=== PATIENT | male | born 1985 | race Caucasian/White ===

== ENCOUNTER 2021-07-12 07:26 | Outpatient (CLI) | payer BC, SELFPAY ==
--- NOTE | ~2021-07-12 | XR_ITS ---
EXAMINATION: XR barium swallow DATE: 07/12/2021 08:05 INDICATION: Globus sensation with feeling of lump in the throat. TECHNIQUE: The patient drank thick barium, gas-producing crystals, and thin barium. Fluoroscopic spot radiographs of the hypopharynx and esophagus were obtained. Fluoroscopy exposure time was 1.8 minut es. Total DAP was 5.375 mGycm^2 COMPARISON: None. FINDINGS: The pharynx is symmetric and without evidence of mass lesion or mucosal irregularity. The e sophagus is normal without mass or stricture. Esophageal motility is normal. There is no hiatal herni a. A single episode of gastroesophageal reflux of a moderate amount of contrast extending to the uppe r thoracic esophagus was observed with Valsalva. IMPRESSION: 1. Gastroesophageal reflux. Otherwise normal esophagram. Reviewed, dictated and finalized at location A. LE MACHINE OPERATOR
== END 2021-07-12 07:27 | disposition home or self-care (01) ==
LOC: ANHIMG 07:28
PROVIDERS: PCP Physician Assistant; Visit Provider Physician Assistant
DX: F45.8 Other somatoform disorders (principal); K21.9 Gastro-esophageal reflux disease without esophagitis
CPT/HCPCS: 74220

== ENCOUNTER 2021-07-27 09:24 | Outpatient (CLI) | payer BC, SELFPAY ==
--- NOTE | ~2021-07-27 | XR_ITS ---
EXAMINATION: XR shoulder RT min 2V DATE: 07/27/2021 09:40 INDICATION: Right shoulder joint pain TECHNIQUE: AP internally and externally rotated, AP oblique externally rotated, axillary and transsca pular Y views of the right shoulder were obtained. COMPARISON: None FINDINGS: Normal alignment. No fracture. Glenohumeral joint is normal. Mild acromioclavicular osteoarthritis w ith mild subarticular cystic change at the lateral head of the clavicle. Soft tissues are unremarkabl e. The right lung is clear with no airspace opacities, pulmonary edema, pleural effusion or pneumotho rax. IMPRESSION: Mild right acromioclavicular osteoarthritis. Reviewed, dictated and finalized at location A. F COMMAND AND CONTROL OFFICER
== END 2021-07-27 09:25 | disposition home or self-care (01) ==
LOC: ANHIMG 09:28
PROVIDERS: PCP Physician Assistant; Visit Provider Physician Assistant
DX: M19.011 Primary osteoarthritis, right shoulder (principal)
CPT/HCPCS: 73030

== ENCOUNTER 2022-01-20 15:02 | Emergency (ER) | payer BC, SELFPAY ==
[2022-01-20 15:05] VITALS: BP 165/99; PULSE 97; RESP 16; TEMP 36.6; O2SAT 97
[2022-01-20] MEDS: TETANUS,DIPHTHERIA,AC PERTUSSIS ADULT (0.5 ML) BOOSTRIX IM (16:28)
[2022-01-20] MEDS: LIDOCAINE HCL 1% PF 30 ML VIAL (16:30)
--- NOTE | 2022-01-20 16:31 | ED.WOUNDLAC ---
HPI - Wound/Laceration General Chief Complaint: Wound/Laceration Stated Complaint: scalp lac Time Seen by Provider: 01/20/22 16:02 Source: patient Mode of arrival: ambulatory Limitations: no limitations History of Present Illness HPI narrative: 36-year-old with a history of anxiety disorder here with complaints of laceration to scalp sustained last evening at 7 PM at his home. Patient states that he was working in his basement and accidentally hit himself against a metal object. He denies loss of consciousness. Patient states that he had to go to work early this morning finished his job this morning and he is here for evaluation. He denies any headache. No history of nausea or vomiting. Onset (ago): hour(s) (16) Location: scalp Place: home Context: accidental Associated symptoms: none Related Data Allergies Allergy/AdvReac Type Severity Reaction Status Date / Time Penicillins AdvReac Unknown vomiting Verified 02/16/20 16:04 Review of Systems Review of Systems: All systems reviewed & are unremarkable except as noted in HPI and below Constitutional: Constitutional: Reports no additional constitutional complaints Eyes: Eyes: Reports no additional eye complaints ENT: Reports system reviewed and no additional complaints, except as documented Cardiovascular: Cardiovascular: Reports no additional cardiovascular complaints Respiratory: Respiratory: Reports no additional respiratory complaints Gastrointestinal: Gastrointestinal: Reports no additional gastrointestinal complaints Musculoskeletal: Musculoskeletal: Reports no additional musculoskeletal complaints Integumentary/Breasts: Skin/Breast: Reports system reviewed and no additional complaints, except as docu Neurologic: Reports system reviewed and no additional complaints, except as documented Endocrine: Endocrine: Reports no additional endocrine complaints [facility] Past Medical History Medical History (Updated 01/20/22 @ 16:34 by Isael Guido MD) Anxiety Tobacco abuse Social History Social History Smoking packs per day: 2 Smoking cigarettes per day: 40.0 Smoking status: Heavy tobacco smoker Tobacco type: cigarettes Second hand tobacco smoke exposure: Yes Alcohol intake: current Substance use: never Substance use type: does not use Additional living arrangements comments: has two dogs Gender identity (if verbalized by the patient): Male Spiritual care concerns: No Agree to blood products: No Exam Narrative: GENERAL: Well-appearing, well-nourished, and in no acute distress. HEAD: Normocephalic, atraumatic.4 cms lac on the scalp with no active bleeding EYES: PERRLA and EOMI. ENT: Nares clear, no rhinorrhea or epistaxis. Mucous membranes moist. NECK: Supple. CHEST: Clear to auscultation. No respiratory distress. HEART: Regular rate and rhythm. No murmur heard. Normal peripheral pulses. EXTREMITIES: Normal range of motion. No edema. SKIN: Warm, dry, no rash. NEURO: No focal deficits. Alert and oriented x3. PSYCH: Normal mood and affect. Course Vital Signs Vital signs: Vital Signs Temperature 36.6 C 01/20/22 15:05 Pulse Rate 97 01/20/22 15:05 Respiratory Rate 16 01/20/22 15:05 Blood Pressure 165/99 H 01/20/22 15:05 Pulse Oximetry 97 01/20/22 15:05 Oxygen Delivery Room Air 01/20/22 15:05 Temperature 36.6 C 01/20/22 15:05 Pulse Rate 97 01/20/22 15:05 Respiratory Rate 16 01/20/22 15:05 Blood Pressure 165/99 H 01/20/22 15:05 Pulse Oximetry 97 01/20/22 15:05 Oxygen Delivery Room Air 01/20/22 15:05 Procedures Laceration Laceration 1: Date: 01/20/22 Site: scalp Size (cm): 4 Description: linear Depth: simple, single layer Local Anesthetic: lidocaine 1% Pre-repair: irrigated extensively ====== Skin Level ====== Skin layer closed with: harjit (9) ====== Subcut
== END 2022-01-20 16:48 | disposition home or self-care (01) ==
LOC: ANHED 16:37
PROVIDERS: Emergency Provider Family Medicine; PCP Physician Assistant
DX: S01.01XA Laceration without foreign body of scalp, initial encounter (principal); Z23 Encounter for immunization; F41.9 Anxiety disorder, unspecified; F17.210 Nicotine dependence, cigarettes, uncomplicated; W26.8XXA Contact with other sharp object(s), not elsewhere classified, initial encounter
CPT/HCPCS: 12002; 90471; 90715; 99283

== ENCOUNTER 2022-01-25 20:54 | Emergency (ER) | payer BC, SELFPAY ==
--- NOTE | ~2022-01-25 | XR_ITS ---
EXAM: XR tibia fibula LT 2V DATE: 01/25/2022 21:41 HISTORY: deep laceration . COMPARISON: None available. FINDINGS: Normal mineralization. Anterior cortical disruption of the left tibia at the junction of t he proximal middle thirds. No other fracture. No dislocation. No lytic or blastic lesion. Joint space s are maintained. No erosion or periosteal change. Anterolateral soft tissue laceration. IMPRESSION: Anterior tibial cortical disruption deep to the soft tissue laceration. No complete fract ure. No other acute osseous finding. Reviewed, dictated and finalized at location K. IMPRESSION: Anterior tibial cortical disruption deep to the soft tissue lacerat ion. No complete fracture. No other acute osseous finding.
[2022-01-25 21:23] VITALS: BP 152/107; PULSE 86; RESP 18; TEMP 36.4; O2SAT 97
[2022-01-26] MEDS: ceFAZolin SODIUM 1 GM VIAL IM (01:28)
[2022-01-26] MEDS: LIDO 1%/EPINEPHRINE 1:100,000 20 ML VIAL INFILTRATE (01:29)
--- NOTE | 2022-01-26 02:12 | ED.LOWEXIN ---
HPI - Extremity Injury (Lower) General Chief Complaint: Extremity Injury, Lower <Beatriz Mcnela PA-C - Last Filed: 01/26/22 02:50> Stated Complaint: laceration to leg <Beatriz Mcneal PA-C - Last Filed: 01/26/22 02:50> Time Seen by Provider: 01/25/22 23:17 <Beatriz Mcneal PA-C - Last Filed: 01/26/22 02:50> Source: patient <Beatriz Mcneal PA-C - Last Filed: 01/26/22 02:50> Mode of arrival: ambulatory <Beatriz Mcneal PA-C - Last Filed: 01/26/22 02:50> Limitations: no limitations <Beatriz Mcneal PA-C - Last Filed: 01/26/22 02:50> History of Present Illness HPI Narrative: This is a 36-year-old male that presents to the emergency department for a laceration to the left schmitz sustained just prior to arrival. Reports he was using a chainsaw and it kicked back and he stained a laceration to the left leg. He is up-to-date on tetanus. Reports bleeding and pain to the area. Denies decreased range of motion or numbness. <Beatriz Mcneal PA-C - Last Filed: 01/26/22 02:50> Related Data Allergies/Adverse Reactions: Allergies Allergy/AdvReac Type Severity Reaction Status Date / Time Penicillins AdvReac Unknown vomiting Verified 02/16/20 16:04 <Beatriz Mcneal PA-C - Last Filed: 01/26/22 02:50> Review of Systems Review of Systems: CONSTITUTIONAL: Denies fever SKIN: Reports laceration NEUROLOGIC: Denies numbness <Beatriz Mcneal PA-C - Last Filed: 01/26/22 02:50> All systems reviewed & are unremarkable except as noted in HPI and below <Beatriz Mcneal PA-C - Last Filed: 01/26/22 02:50> [facility] Past Medical History Medical History: Medical History (Updated 01/26/22 @ 02:14 by Beatriz Mcneal PA-C) Anxiety Tobacco abuse <Beatriz Mcneal PA-C - Last Filed: 01/26/22 02:50> Social History Social History: Social History Smoking packs per day: 2 Smoking cigarettes per day: 40.0 Smoking status: Heavy tobacco smoker Tobacco type: cigarettes Second hand tobacco smoke exposure: Yes Alcohol intake: current Substance use: never Substance use type: does not use Additional living arrangements comments: has two dogs Gender identity (if verbalized by the patient): Male Spiritual care concerns: No Agree to blood products: No <Beatriz Mcnela PA-C - Last Filed: 01/26/22 02:50> Exam Narrative: GENERAL: Well-appearing, well-nourished, and in no acute distress. HEAD: Normocephalic, atraumatic. EYES: EOMI. EXTREMITIES: Normal range of motion. No edema. Normal DP pulse. Normal sensation. 6 cm irregular laceration into subcutaneous tissue over left schmitz. Disruption of the fascia with some injury to the tibialis anterior muscle. No tendinous damage is noted SKIN: Warm, dry, no rash. NEURO: No focal deficits. Alert and oriented x3. PSYCH: Normal mood and affect <Beatriz Mnceal PA-C - Last Filed: 01/26/22 02:50> Course RAW CHEESE WORKER/PA Physician Supervision For this patient encounter, I reviewed the RAW CHEESE WORKER or PA documentation, treatment plan, and medical decision making; and I had [id number] time with this patient. <Scott Leo MD - Last Filed: 01/26/22 03:15> Consultations Consultation #1: Spoke with Dr. Cat about patient and work-up who will follow-up in clinic. <Beatriz Mcneal PA-C - Last Filed: 01/26/22 02:50> Date: 01/26/22 <Beatriz Mcneal PA-C - Last Filed: 01/26/22 02:50> Vital Signs Vital signs: Vital Signs Temperature 97.6 F 01/25/22 21:23 Pulse Rate 86 01/25/22 21:23 Respiratory Rate 18 01/25/22 21:23 Blood Pressure 152/107 H 01/25/22 21:23 Pulse Oximetry 97 01/25/22 21:23 Oxygen Delivery Room Air 01/25/22 21:23 Temperature 97.6 F 01/25/22 21:23 Pulse Rate 72 01/26/22 02:53 Respiratory Rate 18 01/26/22 02:53 Blood Pressure 139/103 H 01/26/22 02:53 Pulse Oximetry 99 01/26/22 02:53 Oxygen Delivery Room A
--- NOTE | 2022-01-26 02:39 | PC.NURSE ---
crutches were ordered for Pt Pt refused.
[2022-01-26 02:53] VITALS: BP 139/103; PULSE 72; RESP 18; O2SAT 99
--- NOTE | 2022-02-15 11:19 | PC.NURSE ---
LATE ENTRY This note is being entered to document information to the patient's record. The following information was omitted on [01/26/2022], by [Jason Wisdom RN]. Site of wound verified to be left lower leg.
== END 2022-01-26 02:56 | disposition home or self-care (01) ==
PROVIDERS: Emergency Provider Emergency Medicine; PCP Physician Assistant
DX: S82.202B Unspecified fracture of shaft of left tibia, initial encounter for open fracture type I or II (principal); F17.210 Nicotine dependence, cigarettes, uncomplicated; W29.3XXA Contact with powered garden and outdoor hand tools and machinery, initial encounter
CPT/HCPCS: 12002; 73590; 96372; 99283; J0690

== ENCOUNTER 2022-02-23 14:28 | Outpatient (CLI) | payer BC, SELFPAY ==
--- NOTE | ~2022-02-23 | XR_ITS ---
XR tibia fibula LT 2V 02/23/2022 14:44 Indication: Left leg injury Procedure: 2 views left tibia/fibula Comparison: 01/25/2022 Findings: there is a soft tissue laceration anterior to the tibia. There is an associated avulsion fr acture of the cortex at this level. No other fracture is identified. The left knee is unremarkable. L eft ankle is intact. Impression: 1: Avulsion fracture anterior aspect of the proximal tibial diaphysis with overlying laceration of th e soft tissues. Reviewed, dictated and finalized at location A. Impression: 1: Avulsion fracture anterior aspect of the proximal tibial diaphysis with over lying laceration of the soft tissues.
== END 2022-02-23 14:29 | disposition home or self-care (01) ==
LOC: ANHIMG 14:32
PROVIDERS: PCP Physician Assistant; Visit Provider Physician Assistant
DX: S82.292D Other fracture of shaft of left tibia, subsequent encounter for closed fracture with routine healing (principal); X58.XXXD Exposure to other specified factors, subsequent encounter
CPT/HCPCS: 73590

== ENCOUNTER 2022-05-31 02:29 | Day surgery (SDC) | payer BC, SELFPAY ==
[2022-05-23 13:48] VITALS: BMI 21.4
[2022-05-31 07:50] VITALS: BP 124/74; PULSE 83; RESP 18; TEMP 36.3; O2SAT 98; BMI 21.8
[2022-05-31] MEDS: LACTATED RINGERS 1,000 ML 150 ML IV CONT (08:08)
--- NOTE | 2022-05-31 08:33 | WPDANESEPPF ---
Anes - Initial Pre Proc Eval Procedure: Operation Date: 05/31/22 09:15 Proposed Procedures p Colonoscopy - Melchor Abdi MD Date/Time: 05/31/22 08:33 Surgeon: Melchor Abdi MD Pre Op Diagnosis: occult GI bleed Patient Data Age: 36 Gender: M Height: 1.88 m Weight: 77.2 kg Last Vital Signs Temp 97.3 F L 05/31/22 07:50 Pulse 83 05/31/22 07:50 Resp 18 05/31/22 07:50 BP 124/74 05/31/22 07:50 Pulse Ox 98 05/31/22 07:50 O2 Del Method Room Air 05/31/22 07:50 Allergies Allergy/AdvReac Type Severity Reaction Status Date / Time Penicillins AdvReac Unknown vomiting Verified 05/31/22 08:01 Home Medications Medication Instructions Recorded Confirmed Type clonidine HCl 0.1 mg tablet 0.1 mg PO DAILY 05/10/22 05/31/22 History omeprazole 40 mg capsule,delayed 40 mg PO DAILY 05/10/22 05/31/22 History release sertraline 100 mg tablet 100 mg PO DAILY 05/22/22 05/31/22 History Patient hx anesthesia problems: none Family hx anesthesia problems: none Results Review: All pre-operative results and documents have been reviewed as part of the pre-operative evaluation. [facility] Past Medical History Medical History Acute nonintractable headache Acute right-sided low back pain with right-sided sciatica Allergy to bee sting Anxiety Dermatitis Erythema of skin Gastroesophageal reflux disease without esophagitis Glucosuria Hypogonadism male Memory changes Mood changes Poison sylvia Sinusitis Tobacco abuse Urinary frequency Word finding difficulty Surgical History Surgical History H/O wisdom tooth extraction 1989' History of tonsillectomy and adenoidectomy Lymph nodes enlarged 1989' Family History Family History Mother Hypertension Grandparent Hypertension Social History Social History Smoking packs per day: 2 Smoking cigarettes per day: 40.0 Years smoked: 10 Smoking pack-years: 20.00 Smoking status: Current every day smoker Tobacco type: cigarettes Second hand tobacco smoke exposure: Yes Alcohol intake: current Drinks per week: 20 Substance use type: marijuana Living arrangements: with family Additional living arrangements comments: has two dogs Additional occupation/education comments: [employer] Gender identity (if verbalized by the patient): Male Spiritual care concerns: No Agree to blood products: No Anes - Eval Final PreProcedure Day of Procedure 05/31/22 08:33 Patient weight: normal Heart: regular rate and rhythm Lungs: clear to auscultation Airway: Mallampati scale class II Neurological: alert and oriented Last oral intake: >/= 8 hours ASA classification: III Emergent: no Anesthetic plan: proceed Anesthesia type and monitoring: general GIVS and standard monitoring Results Review: All pre-operative results and documents have been reviewed as part of the pre-operative evaluation. Informed Consent: The patient's anesthetic plan and its attendant risks and benefits were discussed with the patient/family/POA. Questions were solicited and answers provided to the satisfaction of the patient/family/POA.
--- NOTE | 2022-05-31 08:52 | PM.HPGS ---
History of Present Illness History of Present Illness Consent: Risks, benefits, and alternatives have been discussed and questions answered. Patient agrees to proceed with procedure. Chief complaint: occult GI bleed Narrative: Wisam De La O is a 36 year old male here for first colonoscopy because previous history of rectal bleeding, probably from hemorrhoids Review of Systems Constitutional: Constitutional: Denies headache(s) and Denies weakness Eyes: Eyes: Denies blurry vision ENT: Reports Normal hearing present, Denies headache(s) and Denies neck pain Cardiovascular: Cardiovascular: Denies chest pain and Denies dyspnea Respiratory: Respiratory: Denies dyspnea Gastrointestinal: Gastrointestinal: Reports no additional gastrointestinal complaints Genitourinary: Genitourinary: Denies dysuria Musculoskeletal: Musculoskeletal: Denies neck pain Integumentary/Breasts: Skin/Breast: Denies dry skin Neurologic: Reports Normal hearing present, Denies headache(s) and Denies weakness Psychiatric: Psychiatric: Denies anxiety Endocrine: Endocrine: Denies change in body appearance Hematologic/Lymphatic: Hematologic/Lymphatic: Denies easy bleeding Allergic/Immunologic: Allergic/Immunologic: Denies urticaria PMFSH Past Medical History Medical History Acute nonintractable headache Acute right-sided low back pain with right-sided sciatica Allergy to bee sting Anxiety Dermatitis Erythema of skin Gastroesophageal reflux disease without esophagitis Glucosuria Hypogonadism male Memory changes Mood changes Poison sylvia Sinusitis Tobacco abuse Urinary frequency Word finding difficulty Surgical History Surgical History H/O wisdom tooth extraction History of tonsillectomy and adenoidectomy 1989' Lymph nodes enlarged 1989' Family History Family History Mother Hypertension Grandparent Hypertension Social History Social History Smoking packs per day: 2 Smoking cigarettes per day: 40.0 Years smoked: 10 Smoking pack-years: 20.00 Smoking status: Current every day smoker Tobacco type: cigarettes Second hand tobacco smoke exposure: Yes Alcohol intake: current Drinks per week: 20 Substance use type: marijuana Living arrangements: with family Additional living arrangements comments: has two dogs Additional occupation/education comments: [employer] Gender identity (if verbalized by the patient): Male Spiritual care concerns: No Agree to blood products: No Meds Home Medications and Allergies Home Medications Medication Instructions Recorded Confirmed Type clonidine HCl 0.1 mg tablet 0.1 mg PO DAILY 05/10/22 05/31/22 History omeprazole 40 mg capsule,delayed 40 mg PO DAILY 05/10/22 05/31/22 History release sertraline 100 mg tablet 100 mg PO DAILY 05/22/22 05/31/22 History Allergies Allergy/AdvReac Type Severity Reaction Status Date / Time Penicillins AdvReac Unknown vomiting Verified 05/31/22 08:01 Vital Signs Vital Signs - 24 hr 05/31/22 07:50 Temperature 97.3 F L Pulse Rate 83 Respiratory Rate 18 Blood Pressure 124/74 Pulse Oximetry 98 Oxygen Delivery Room Air Exam Const: General: comfortable and no acute distress HENMT: Face/Nose/Sinus: Normal nares present Eyes: General: appearance normal, both eyes and all related structures Neck: Neck: no JVD Resp: Auscultation: clear to auscultation bilaterally Cardio: Rate: regular rate Rhythm: regular rhythm GI: Inspection: non-distended GI Palp: Yes Soft to palpation Skin: General skin exam: normal color Neuro: General: gait normal Speech: normal speech Extrem: General: normal to inspection Psych: Mental Status: mental status grossly normal Assessment and Plan
[2022-05-31 09:16] VITALS: BP 119/81; PULSE 68; RESP 17; O2SAT 94
[2022-05-31 09:26] VITALS: BP 125/81; PULSE 65; RESP 16; O2SAT 96
[2022-05-31 09:36] VITALS: BP 155/105; PULSE 70; RESP 16; O2SAT 97
--- NOTE | 2022-05-31 09:43 | SUR.PHASEII ---
Blood pressure elevated. Dr Shultz made aware- ok to discharge.
== END 2022-05-31 09:50 | disposition home or self-care (01) ==
PROVIDERS: PCP Physician Assistant; Visit Provider Internal Medicine Gastroenterology
PROC: 0DJD8ZZ Inspection of Lower Intestinal Tract, Via Natural or Artificial Opening Endoscopic (ICD-10-PCS; CPT 45378; principal; 2022-05-31 09:15)
DX: K92.1 Melena (principal); K63.5 Polyp of colon; K57.30 Diverticulosis of large intestine without perforation or abscess without bleeding; K64.8 Other hemorrhoids; K64.4 Residual hemorrhoidal skin tags; K21.9 Gastro-esophageal reflux disease without esophagitis; F41.9 Anxiety disorder, unspecified; F17.210 Nicotine dependence, cigarettes, uncomplicated; F12.90 Cannabis use, unspecified, uncomplicated
CPT/HCPCS: 45385; 88305; J2704; J7120

== ENCOUNTER 2022-07-24 09:51 | Emergency (ER) | payer BC, SELFPAY ==
[2022-07-24 10:04] VITALS: BP 165/97; PULSE 81; RESP 16; TEMP 36.3; O2SAT 100
--- NOTE | 2022-07-24 10:51 | ED.URI ---
HPI - URI/Sore Throat General Chief Complaint: Upper Respiratory Infection Stated Complaint: SOB Time Seen by Provider: 07/24/22 10:51 Source: patient, RN notes reviewed and old records reviewed Mode of arrival: ambulatory Limitations: no limitations History of Present Illness HPI Narrative: 36-year-old male presents to the [facility] with complaints of cough, congestion, sinus pressure that started just 2-3 hours prior to arrival. Patient is talking in full sentences. Has taken 1 Mucinex and states his nose is now running. Patient is a smoker Related Data Home Medications Medication Instructions Recorded Confirmed clonidine HCl 0.1 mg tablet 0.1 mg PO DAILY 05/10/22 05/31/22 omeprazole 40 mg capsule,delayed 40 mg PO DAILY 05/10/22 05/31/22 release sertraline 100 mg tablet 100 mg PO DAILY 05/22/22 05/31/22 testosterone 20.25 mg/1.25 gram 07/24/22 (1.62 %) transdermal gel pump Allergies Allergy/AdvReac Type Severity Reaction Status Date / Time Penicillins AdvReac Unknown vomiting Verified 07/24/22 10:47 Review of Systems Review of Systems: All systems reviewed & are unremarkable except as noted in HPI and below Constitutional: Constitutional: Reports no additional constitutional complaints Eyes: Eyes: Reports no additional eye complaints ENT: Reports as per HPI and Reports nasal congestion Cardiovascular: Cardiovascular: Reports no additional cardiovascular complaints, Denies chest pain and Denies dyspnea Respiratory: Respiratory: Reports as per HPI, Reports chest congestion, Reports cough, Reports dyspnea and Denies wheezing Gastrointestinal: Gastrointestinal: Reports no additional gastrointestinal complaints, Denies abdominal pain, Denies nausea and Denies vomiting Musculoskeletal: Musculoskeletal: Reports no additional musculoskeletal complaints Integumentary/Breasts: Skin/Breast: Reports system reviewed and no additional complaints, except as docu Neurologic: Reports system reviewed and no additional complaints, except as documented Psychiatric: Psychiatric: Reports no additional psychiatric complaints Allergic/Immunologic: Allergic/Immunologic: Reports no additional allergic/immunologic complaints PMFSH Past Medical History Medical History Acute nonintractable headache Acute right-sided low back pain with right-sided sciatica Allergy to bee sting Anxiety Dermatitis Erythema of skin Gastroesophageal reflux disease without esophagitis Glucosuria Hypogonadism male Memory changes Mood changes Poison sylvia Sinusitis Tobacco abuse Urinary frequency Word finding difficulty Surgical History Surgical History H/O wisdom tooth extraction History of tonsillectomy and adenoidectomy Lymph nodes enlarged Family History Family History Mother Hypertension Grandparent Hypertension Social History Social History Smoking packs per day: 2 Smoking cigarettes per day: 40.0 Years smoked: 10 Smoking pack-years: 20.00 Smoking status: Current every day smoker Tobacco type: cigarettes Second hand tobacco smoke exposure: Yes Alcohol intake: current Drinks per week: 20 Substance use type: marijuana Additional living arrangements comments: has two dogs Additional occupation/education comments: [employer] Gender identity (if verbalized by the patient): Male Spiritual care concerns: No Agree to blood products: No Comments At the time of my signature, I reviewed and agree with the nursing past medical, surgical, social, and family history. There is no relevant family history pertinent to the patient complaint. Exam Const: General: cooperative, healthy appearing, comfortable, no acute distress, well developed, alert and well nourish
== END 2022-07-24 11:07 | disposition home or self-care (01) ==
PROVIDERS: Emergency Provider Nurse Practitioner; PCP Physician Assistant
DX: J40 Bronchitis, not specified as acute or chronic (principal); J06.9 Acute upper respiratory infection, unspecified; F17.210 Nicotine dependence, cigarettes, uncomplicated; F41.9 Anxiety disorder, unspecified
CPT/HCPCS: 99213; G0463

== ENCOUNTER 2022-11-13 03:43 | Inpatient (IN) | payer BC, SELFPAY ==
[2022-11-13] VITALS (8 sets, daily range): BP systolic 141–188; BP diastolic 74–96; PULSE 100–122; RESP 16–24; TEMP 37.4–39.7; O2SAT 95–100
--- NOTE | ~2022-11-13 | US_ITS ---
Testicular ultrasound with doppler. Indication: Pain, torsion. Technique: Real-time sonography the scrotum was performed. Color flow Doppler and Doppler spectral an alysis were performed. Findings: The testes are homogeneous in echotexture bilaterally. There is no evidence of an intrates ticular mass. The right testis measures 4.6 x 3.7 x 2.7 cm and the left 5.0 x 3.2 x 2.5 cm. There is color-flow seen to both testes. Arterial and venous spectral waveforms are seen in both testes. There is no sonographic evidence of torsion. There is probable hypervascularity of the right testis and ri ght epididymis. There is prominent, diffuse scrotal wall edema. Small, complex right hydrocele presen t. Impression: No evidence of torsion. Findings suggestive of right epididymoorchitis. Small complex right hydrocele. Marked, diffuse scrotal wall edema. Reviewed, dictated and finalized at [facility]. Impression: No evidence of torsion. Findings suggestive of right epididymoorchitis. Small complex right hydrocele. Marked, diffuse scrotal wall edema.
--- NOTE | ~2022-11-13 | US_ITS ---
US renal BI 11/17/2022 11:35 Procedure: Realtime transabdominal ultrasound of the kidneys and bladder. Indication: Elevated creatinine Comparison: No prior studies for comparison. Findings: Renal echotexture is normal bilaterally without hydronephrosis, contour deforming mass or r enal calculus. The right kidney measures 12.6 cm and left kidney measures 13 cm. Bladder within norm al limits. Impression: 1: Unremarkable renal ultrasound. No stones, masses or hydronephrosis. Reviewed, dictated and finalized at location A. Impression: 1: Unremarkable renal ultrasound. No stones, masses or hydronephrosis.
--- NOTE | ~2022-11-13 | CT_ITS ---
CT of the Pelvis: Indication: Scrotal infection Technique: 2.5 mm axial scans were obtained through the pelvis following intravenous administration of 100 cc of Omnipaque 350. Dose reduction technique was used on this scan by utilizing automated exp osure control and iterative reconstruction technique. The dose-length product (DLP) was 263.11 mGy-cm . Findings: Visualized bowel loops are unremarkable. No evidence for bowel obstruction. No intraperiton eal abscess or free air evident. Urinary bladder unremarkable. Prostate gland and seminal vesicles ar e unremarkable. Diffuse scrotal wall edema is present. Probable small right hydrocele present. Possible abscess in th e right hemiscrotum, posterior to the right testis/hydrocele, measuring 3.2 x 1.4 x 4.1 cm (coronal i mages 31-37, axial images 104-112). No soft tissue gas seen in the scrotum to suggest Jeanine's gang daniel. Impression: No evidence of gas in the scrotum to suggest Jeanine's gangrene. Diffuse scrotal wall edema with small right hydrocele. Suspected 3.2 x 1.4 x 4.1 cm abscess in the right hemiscrotum, posterior to the testis, as detailed a sherry. Reviewed, dictated and finalized at location . Impression: No evidence of gas in the scrotum to suggest Jeanine's gangrene. Diffuse scrotal wall edema with small right hydrocele. Suspected 3.2 x 1.4 x 4.1 cm abscess in the right hemiscrotum, posterior to the testis, as detailed above.
--- NOTE | ~2022-11-13 | US_ITS ---
EXAMINATION: US scrotum doppler DATE: 11/15/2022 08:54 INDICATION: Right scrotal abscess for possible surgical planning. TECHNIQUE: Testicular sonogram utilizing grayscale and Doppler COMPARISON: 11/13/2022 FINDINGS: The right testis measures 4.3 x 2.8 x 3.0 cm. The left testis measures 5.1 x 2.2 x 2.6 cm. Symmetric normal grayscale appearance to both testes. There is normal vascular flow to both testes. This includ es arterial waveforms identified at both testes. Venous waveform also identified in the right testis. The bilateral epididymides are normal with normal vascular flow. There is no varicocele. Small compl ex right hydrocele with a few thin echogenic internal septations.. No left hydrocele.. Again seen is prominent diffuse scrotal edema. Interval increase in size and more organized appearance to a complex very hypoechoic loculated fluid collection with multiple internal echogenic foci consistent with an abscess which now surrounds the majority of the right testis and which measures up to 1.5 cm in thick ness. IMPRESSION: 1. Peripheral increase in size of a right peritesticular scrotal abscess. 2. Normal bilateral testes and epididymides with small complex right hydrocele. Reviewed, dictated and finalized at location A.
--- NOTE | 2022-11-13 04:01 | ED.GENADULT ---
HPI - General Adult General Chief complaint: Urogenital-Male Stated complaint: right testicle swelling and pain Time Seen by Provider: 11/13/22 03:50 History of Present Illness HPI narrative: This is a 36-year-old male presenting ED with chief complaint of testicle pain. Patient had a vasectomy 3 weeks ago. Since then he has had increased swelling of his right testicle. He has become progressively more painful and today he can no longer take it. He denies urinary symptoms, overlying skin changes, fever chills nausea vomiting or diarrhea. Procedure was performed by Dr. Obando. Related Data Home Medications Medication Instructions Recorded Confirmed clonidine HCl 0.1 mg tablet 0.1 mg PO DAILY 05/10/22 05/31/22 omeprazole 40 mg capsule,delayed 40 mg PO DAILY 05/10/22 05/31/22 release sertraline 100 mg tablet 100 mg PO DAILY 05/22/22 05/31/22 testosterone 07/24/22 Allergies Allergy/AdvReac Type Severity Reaction Status Date / Time No Known Allergies Allergy Verified 11/13/22 03:53 [facility] Past Medical History Medical History Acute nonintractable headache Acute right-sided low back pain with right-sided sciatica Allergy to bee sting Anxiety Dermatitis Erythema of skin Gastroesophageal reflux disease without esophagitis Glucosuria Hypogonadism male Memory changes Mood changes Poison sylvia Sinusitis Tobacco abuse Urinary frequency Word finding difficulty Surgical History Surgical History H/O wisdom tooth extraction 1989' History of tonsillectomy and adenoidectomy 1989' Lymph nodes enlarged 1989' Family History Family History Mother Hypertension Grandparent Hypertension Social History Social History Smoking packs per day: 2 Smoking cigarettes per day: 40.0 Years smoked: 10 Smoking pack-years: 20.00 Smoking status: Current every day smoker Tobacco type: cigarettes Second hand tobacco smoke exposure: Yes Alcohol intake: current Drinks per week: 20 Substance use type: marijuana Living arrangements: with family Additional living arrangements comments: has two dogs Occupation/Education: occupation Additional occupation/education comments: [employer] Gender identity (if verbalized by the patient): Male Spiritual care concerns: No Agree to blood products: No Exam Narrative: APPEARANCE: No apparent distress. Head: atraumatic. EYES: EOMI, NOSE: Atraumatic NECK: Trachea midline RESPIRATORY: No increased rate of breathing CARDIOVASCULAR: RRR, ABDOMINAL: Non-distended MUSCULOSKELETAl: No obvious deformities Genital exam: Scrotum is swollen and tense to the touch on the right side. unable to palpate the testicle at all due to tenderness and severe swelling. No skin changes or induration. left testicle is nontender with normal lie NEURO: Alert. Moving 4/4 extremities SKIN:: Warm, dry. Normal color PSYCHIATRIC: Normal affect Course Vital Signs Vital signs: Vital Signs Temperature 99.5 F 11/13/22 03:47 Pulse Rate 122 H 11/13/22 03:47 Respiratory Rate 16 11/13/22 03:47 Blood Pressure 188/91 H 11/13/22 03:47 Pulse Oximetry 95 11/13/22 03:47 Oxygen Delivery Room Air 11/13/22 03:47 Temperature 99.5 F 11/13/22 03:47 Pulse Rate 103 H 11/13/22 05:53 Respiratory Rate 18 11/13/22 05:53 Blood Pressure 142/83 H 11/13/22 05:53 Pulse Oximetry 97 11/13/22 05:53 Oxygen Delivery Room Air 11/13/22 03:47 Medical Decision Making MDM Narrative Medical decision making narrative: -Presentation: 36-year-old male presenting 3 weeks after vasectomy with testicular pain and swelling -DDX includes but is not limited to: torsion, surgical [id number], orchitis, varicocele -Co-morbidities
[2022-11-13] MEDS: KETOROLAC 15 MG/ML VIAL (*BKC) IV PUSH (04:13)
[2022-11-13] MEDS: SODIUM CHLORIDE 0.9% IV 1,000 ML 999 ML IV CONT (04:13)
[2022-11-13] MEDS: HYDROmorphone HCL INJ (*CRX) 1 MG/ML SYR 0.5 MG IV PUSH (04:14)
[2022-11-13 04:26] LABS: Basophils Absolute Auto 0.1 K/mm3 (0.0-0.1); Basophils Percent Auto 0.5 % (0.2-1.2); Eosinophils Absolute Auto 0.1 K/mm3 (0-0.3); Hematocrit 40.1 % (42.0-52.0); Hemoglobin 14.1 g/dL (14.0-18.0); Immature Granulocyte Absolute 0.06 K/mm3 (0.00-0.031); Immature Granulocyte Percent A 0.4 % (0-0.5); Lymphocytes Absolute Auto 1.05 K/mm3 (0.9-3.2); Lymphocytes Percent Auto 7.2 % (18.3-44.2); Mean Corpuscular HGB Conc 35.2 g/dl (32-36); Mean Corpuscular Hemoglobin 33.7 pg (26-34); Mean Corpuscular Volume 95.7 fl (80-100); Mean Platelet Volume 10.1 fl (7.4-10.4); Monocytes Absolute Auto 1.1 K/mm3 (0.1-0.6); Monocytes Percent Auto 7.7 % (2.6-8.5); Neutrophils Absolute Auto 12.2 K/mm3 (1.3-6.7); Neutrophils Percent Auto 83.2 % (45.5-73.1); Platelet Count Result 299 k/mm3 (150-375); Red Blood Count 4.19 M/mm3 (4.6-6.20); Red Cell Distribution Width 12.7 % (11.5-14.5); White Blood Count 14.6 K/mm3 (4.5-10.0)
[2022-11-13 04:34] LABS: Appearance Urine Clear (Clear); Bacteria Urine None Seen /hpf; Bilirubin Urine Negative (Negative); Blood Urine Negative (Negative); Color Urine Yellow (Yellow); Glucose Urine UA Negative (Negative); Ketones Urine Negative (Negative); Leukocyte Esterase Ur Negative LEU/UL (Negative); Nitrate Urine Negative (Negative); Non Pathogenic Casts 0-2; Protein Urine Trace mg/dL (Negative); RBC Urine 0-2 /hpf (0-2); Specific Grav Ur 1.018 (1.001-1.035); Squamous Epithelial Cell Urine None seen /hpf (Few); WBC Urine 0-5 /hpf; pH Urine 6.5 (5.0-9.0)
[2022-11-13 04:44] LABS: Anion Gap 7 mmol/L (8-16); Blood Urea Nitrogen 6 mg/dL (9-20); Calcium 9.1 mg/dL (8.4-10.2); Carbon Dioxide 27 mmol/L (22-30); Chloride 105 mmol/L (98-107); Estimated CRCL calculation 159 ml/min; Estimated Glomerular Filt Rate > 60; Glucose 126 mg/dL (65-110); Potassium 3.8 mmol/L (3.4-5.0); Sodium 139 mmol/L (137-145)
[2022-11-13 05:28] LABS: Add Urine Microscopic? YES
[2022-11-13] MEDS: SODIUM CHLORIDE 0.9% IV 2,000 ML 999 ML IV CONT (06:23)
[2022-11-13] MEDS: PIPERACILLIN/TAZOBACTAM SOD 4.5 GM in SODIUM CHLORIDE 0.9% IV 100 ML 200 ML IVPB (07:23)
--- NOTE | 2022-11-13 07:50 | PC.NURSE ---
Urology came for a consult and possible drainage of the site. After seeing the pt, urology states there is nothing to drain and will watch pt overnight.
--- NOTE | 2022-11-13 07:50 | PM.IMHP ---
H&P: HPI History of Present Illness Date/Time: 11/13/22 07:50 Chief Complaint: scrotal swelling and pain Narrative: this is a 36-year-old gentleman seen at the request of the emergency room here at [facility]. He is 3 weeks out from a vasectomy. He did well initially. Over the weekend he noted right scrotal swelling and pain. He denied fevers or chills. He denied dysuria. He denied symptoms of urinary tract infection. He present to the emergency room and was diagnosed with right-sided epididymo-orchitis. Imaging was done which ruled out torsion. CT scan suggested a possible fluid collection in the scrotum. Ultrasound did not confirm this. He does have a slightly elevated white count at 14. He will be admitted for observation and IV antibiotics Review of Systems Review of Systems: All systems reviewed & are unremarkable except as noted in HPI and below PMFSH Past Medical History Medical History Acute nonintractable headache Acute right-sided low back pain with right-sided sciatica Allergy to bee sting Anxiety Dermatitis Erythema of skin Gastroesophageal reflux disease without esophagitis Glucosuria Hypogonadism male Memory changes Mood changes Poison sylvia Sinusitis Tobacco abuse Urinary frequency Word finding difficulty Surgical History Surgical History H/O wisdom tooth extraction 1989' History of tonsillectomy and adenoidectomy 1989' Lymph nodes enlarged 1989' Family History Family History Mother Hypertension Grandparent Hypertension Social History Social History Smoking packs per day: 2 Smoking cigarettes per day: 40.0 Years smoked: 10 Smoking pack-years: 20.00 Smoking status: Current every day smoker Tobacco type: cigarettes Second hand tobacco smoke exposure: Yes Alcohol intake: current Drinks per week: 20 Substance use type: marijuana Living arrangements: with family Additional living arrangements comments: has two dogs Occupation/Education: occupation Additional occupation/education comments: [employer] Gender identity (if verbalized by the patient): Male Spiritual care concerns: No Agree to blood products: No Meds Home Medications and Allergies Home Medications Medication Instructions Recorded Confirmed Type clonidine HCl 0.1 mg tablet 0.1 mg PO DAILY 05/10/22 05/31/22 History omeprazole 40 mg capsule,delayed 40 mg PO DAILY 05/10/22 05/31/22 History release sertraline 100 mg tablet 100 mg PO DAILY 05/22/22 05/31/22 History albuterol sulfate 90 mcg/actuation 2 puff inhalation QID PRN 07/24/22 Rx aerosol inhaler shortness of breath or wheezing #6.7 grams inhalational spacing device (Space #1 ea 07/24/22 Rx Chamber) prednisone 20 mg tablet See Rx Instructions .Route 07/24/22 Rx .COMPLEX #9 tabs testosterone 07/24/22 History Allergies Allergy/AdvReac Type Severity Reaction Status Date / Time No Known Allergies Allergy Verified 11/13/22 03:53 Vital Signs Vital Signs - 24 hr 11/13/22 03:47 11/13/22 05:53 11/13/22 07:05 Temperature 99.5 F Pulse Rate 122 H 103 H 102 H Respiratory Rate 16 18 18 Blood Pressure 188/91 H 142/83 H 142/74 H Pulse Oximetry 95 97 98 Oxygen Delivery Room Air Exam Const: General: cooperative, healthy appearing, comfortable, no acute distress, alert, awake and Physically active Nutritional Appearance: average body habitus and well nourished Orientation/consciousness: patient oriented x3 HENMT: Head: normal to inspection Eyes: General: appearance normal, both eyes and all related structures Neck: Neck: normal visual inspection and full ROM Resp: Effort & Inspection: normal respiratory effort, able to speak in complete sentences, no grunting
[2022-11-13] MEDS: ACETAMINOPHEN 325 MG TABLET 650 MG PO ×2 (09:15→14:08)
[2022-11-13] MEDS: HYDROcodone/acetaminophen (*CRX) 5-325 MG TABLET 1 TAB PO ×2 (14:11→20:09)
[2022-11-13] MEDS: ZOLPIDEM TARTRATE (*CRX) 5 MG TABLET 10 MG PO (22:19)
[2022-11-14 05:35] VITALS: BP 162/86; PULSE 104; RESP 16; TEMP 37.2; O2SAT 98
[2022-11-14] MEDS: HYDROcodone/acetaminophen (*CRX) 5-325 MG TABLET 1 TAB PO ×3 (06:18→21:08)
[2022-11-14 06:20] LABS: Basophils Absolute Auto 0.1 K/mm3 (0.0-0.1); Basophils Percent Auto 0.4 % (0.2-1.2); Eosinophils Absolute Auto 0.1 K/mm3 (0-0.3); Eosinophils Percent Auto 0.4 % (0-4.4); Hematocrit 38.8 % (42.0-52.0); Hemoglobin 13.4 g/dL (14.0-18.0); Immature Granulocyte Absolute 0.09 K/mm3 (0.00-0.031); Immature Granulocyte Percent A 0.5 % (0-0.5); Lymphocytes Absolute Auto 0.97 K/mm3 (0.9-3.2); Lymphocytes Percent Auto 5.3 % (18.3-44.2); Mean Corpuscular HGB Conc 34.5 g/dl (32-36); Mean Corpuscular Hemoglobin 32.8 pg (26-34); Mean Corpuscular Volume 95.1 fl (80-100); Mean Platelet Volume 10.1 fl (7.4-10.4); Monocytes Absolute Auto 0.9 K/mm3 (0.1-0.6); Monocytes Percent Auto 4.9 % (2.6-8.5); Neutrophils Percent Auto 88.5 % (45.5-73.1); Platelet Count Result 267 k/mm3 (150-375); Red Blood Count 4.08 M/mm3 (4.6-6.20); Red Cell Distribution Width 12.6 % (11.5-14.5); White Blood Count 18.1 K/mm3 (4.5-10.0)
[2022-11-14 06:24] LABS: Estimated CRCL calculation 159 ml/min; Estimated Glomerular Filt Rate > 60
[2022-11-14] MEDS: ACETAMINOPHEN 325 MG TABLET 650 MG PO ×2 (08:34→14:04)
[2022-11-14] MEDS: KETOROLAC 30 MG/ML VIAL (*BKC) IV PUSH (09:40)
--- NOTE | 2022-11-14 13:35 | WPDUROPN2 ---
Progress Note: A&P Assessment and Plan (1) Orchitis and epididymitis: Code(s): N45.3 - Epididymo-orchitis Status: Acute Assessment and Plan: Continue with IV antibiotics. No evidence of fluctuance at this time. Reviewed films with Dr. Lubin. . Still very difficult to tell whether this is phlegmon or something that is materializing into an abscess. Given that he is feeling better and afebrile will simply repeat a white count in the morning as well as a scrotal ultrasound. If it appears to be progressing may need I and D or scrotal exploration. Will notify Dr. Obando of patient's admission Subjective Subjective Date/Time Seen: 11/14/22 13:35 Principal diagnosis: Right epididymal orchitis Interval history: Wisam is actually feeling better today although his white count is elevated. No fevers noted. Review of Systems Review of Systems: All systems reviewed & are unremarkable except as noted in HPI and below Exam Const: General: cooperative and comfortable Resp: Effort & Inspection: normal respiratory effort Cardio: Rate: regular rate Rhythm: regular rhythm : Scrotum: edematous and other (No fluctuant areas noted at this time.) Objective Data Vital Signs Vital Signs: Vital Signs - 24 hr 11/13/22 14:08 11/13/22 14:00 11/13/22 20:00 Temperature 39.6 C H 39.7 C H Pulse Rate 110 H Respiratory Rate 16 Blood Pressure 141/92 H Pulse Oximetry 100 Oxygen Delivery Room Air 11/13/22 21:03 11/14/22 05:35 11/14/22 08:10 Temperature 37.4 C 37.2 C Pulse Rate 107 H 104 H Respiratory Rate 16 16 Blood Pressure 159/91 H 162/86 H Pulse Oximetry 98 98 Oxygen Delivery Room Air Intake/Output Intake/Output: Intake & Output 11/11/22 11/12/22 11/13/22 11/14/22 23:59 23:59 23:59 23:59 Intake Total 5870 840 Output Total 850 500 Balance 5020 340 Meds/Results Medications: Active Medications Generic Name Dose Route Start Last Admin Trade Name Freq PRN Reason Stop Dose Admin Acetaminophen 650 mg 11/13/22 09:06 11/14/22 08:34 Acetaminophen 325 Mg Tablet PO 650 mg Q4H PRN Administration Headache Hydrocodone Bitart/Acetaminophen 1 tab 11/13/22 12:45 11/14/22 06:18 Hydrocodone/Acetaminophen (*Crx) 5-325 Mg Tablet PO 1 tab Q4H PRN Administration Pain Rated 4-6 Vancomycin HCl 1,500 mg in 500 mls @ 250 mls/hr 11/13/22 20:00 11/14/22 08:10 Vancomycin 1,500 Mg/D5w 500 Ml IVPB 250 mls/hr Q12H JANE Administration Ceftriaxone Sodium 1 gm in 50 mls @ 100 mls/hr 11/13/22 10:00 11/14/22 10:47 Rocephin 1 Gm/Ns 50 Ml IVPB 100 mls/hr Q24H JANE Administration Ketorolac Tromethamine 30 mg 11/14/22 09:36 11/14/22 09:40 Ketorolac 30 Mg/Ml Vial (*Bkc) IV PUSH 30 mg Q6H PRN Administration Pain Rated 4-6 Radiology Results: ITS Impressions Scrotum Ultrasound 11/13/22 06:08 Impression: No evidence of torsion. Findings suggestive of right epididymoorchitis. Small complex right hydrocele. Marked, diffuse scrotal wall edema. Pelvis CT 11/13/22 06:21 Impression: No evidence of gas in the scrotum to suggest Jeanine's gangrene. Diffuse scrotal wall edema with small right hydrocele. Suspected 3.2 x 1.4 x 4.1 cm abscess in the right hemiscrotum, posterior to the testis, as detailed above. Labs Labs: Laboratory Results - last 24 hr 11/14/22 11/14/22 06:02 06:02 WBC 18.1 H RBC 4.08 L Hgb 13.4 L Hct 38.8 L MCV 95.1 MCH 32.8 MCHC 34.5 RDW 12.6 Plt Count 267 MPV 10.1 Immature Gran % (Auto) 0.5 Neut % (Auto) 88.5 H Lymph % (Auto) 5.3 L [place] % (Auto) 4.9 Eos % (Auto) 0.4 Baso % (Auto) 0.4 Lymph # (Auto) 0.97 [place] # (Auto) 0.9 H Eos # (Auto) 0.1 Baso # (Auto) 0.1 Abs Immat Gran (auto) 0.09 H Absolute Neuts (auto) 16.0 H Absolute Nucleated RBC 0.0 Nucleated RBC % 0.0 Creatinine 0.60 L Estim Creat Clear
[2022-11-14 14:00] VITALS: BP 137/88; PULSE 85; RESP 17; TEMP 36.6; O2SAT 99
[2022-11-14 19:43] LABS: Vancomycin Trough 8.2 ug/mL (10.0-20.0)
[2022-11-14 20:57] VITALS: BP 148/84; PULSE 100; RESP 18; TEMP 37.1; O2SAT 99
[2022-11-14] MEDS: ZOLPIDEM TARTRATE (*CRX) 5 MG TABLET 10 MG PO (21:08)
[2022-11-15] VITALS (11 sets, daily range): BP systolic 112–152; BP diastolic 62–87; PULSE 82–103; RESP 16–20; TEMP 35.9–38; O2SAT 94–100
[2022-11-15 06:22] LABS: Estimated CRCL calculation 159 ml/min; Estimated Glomerular Filt Rate > 60
--- NOTE | 2022-11-15 07:37 | WPDUROPN2 ---
Progress Note: A&P Assessment and Plan (1) Orchitis and epididymitis: Code(s): N45.3 - Epididymo-orchitis Status: Acute Assessment and Plan: - Continue with IV antibiotics.? No evidence of fluctuance at this time.? - Plan CBC and scrotal ultrasound this morning. -encouraged scrotal elevation Subjective Subjective Date/Time Seen: 11/15/22 07:37 Review of Systems Review of Systems: persistent right scrotal pain, no fevers/chills Exam Narrative: Patient is awake and alert. He is in no acute distress. His breathing is unlabored. His abdomen is soft nontender nondistended. Left testicle is palpable and normal. Normal post vasectomy changes. Right hemiscrotal induration and mild pain to palpation. No crepitus. No fluctuance Objective Data Vital Signs Vital Signs: Vital Signs - 24 hr 11/14/22 08:10 11/14/22 14:00 11/14/22 20:57 Temperature 36.6 C 37.1 C Pulse Rate 85 100 Respiratory Rate 17 18 Blood Pressure 137/88 148/84 H Pulse Oximetry 99 99 Oxygen Delivery Room Air 11/14/22 20:00 11/15/22 06:00 Temperature 37.1 C Pulse Rate 99 Respiratory Rate 19 Blood Pressure 133/81 Pulse Oximetry 95 Oxygen Delivery Room Air Intake/Output Intake/Output: Intake & Output 11/12/22 11/13/22 11/14/22 11/15/22 23:59 23:59 23:59 23:59 Intake Total 5870 4970 550 Output Total 850 2300 1150 Balance 5020 2670 -600 Meds/Results Medications: Active Medications Generic Name Dose Route Start Last Admin Trade Name Freq PRN Reason Stop Dose Admin Acetaminophen 650 mg 11/13/22 09:06 11/14/22 14:04 Acetaminophen 325 Mg Tablet PO 650 mg Q4H PRN Administration Headache Hydrocodone Bitart/Acetaminophen 1 tab 11/13/22 12:45 11/14/22 21:08 Hydrocodone/Acetaminophen (*Crx) 5-325 Mg Tablet PO 1 tab Q4H PRN Administration Pain Rated 4-6 Ceftriaxone Sodium 1 gm in 50 mls @ 100 mls/hr 11/13/22 10:00 11/14/22 11:17 Rocephin 1 Gm/Ns 50 Ml IVPB Infused Q24H JANE Infusion Vancomycin HCl 2,000 mg in 500 mls @ 250 mls/hr 11/15/22 05:00 11/15/22 05:23 Vancomycin 2,000 Mg/D5w 500 Ml IVPB 250 mls/hr Q8H JANE Administration Ketorolac Tromethamine 30 mg 11/14/22 09:36 11/14/22 09:40 Ketorolac 30 Mg/Ml Vial (*Bkc) IV PUSH 30 mg Q6H PRN Administration Pain Rated 4-6 Zolpidem Tartrate 10 mg 11/14/22 20:58 11/14/22 21:08 Zolpidem Tartrate (*Crx) 5 Mg Tablet PO 10 mg HS PRN Administration Insomnia Radiology Results: ITS Impressions Scrotum Ultrasound 11/13/22 06:08 Impression: No evidence of torsion. Findings suggestive of right epididymoorchitis. Small complex right hydrocele. Marked, diffuse scrotal wall edema. Pelvis CT 11/13/22 06:21 Impression: No evidence of gas in the scrotum to suggest Jeanine's gangrene. Diffuse scrotal wall edema with small right hydrocele. Suspected 3.2 x 1.4 x 4.1 cm abscess in the right hemiscrotum, posterior to the testis, as detailed above. Labs Labs: Laboratory Results - last 24 hr 11/13/22 11/14/22 11/15/22 04:24 19:03 05:49 Creatinine 0.60 L Estim Creat Clear Calc 159 Estimated GFR > 60 Urine Color Yellow Urine Appearance Clear Urine pH 6.5 Ur Specific [place] 1.018 Urine Protein Trace Urine Glucose (UA) Negative Urine Ketones Negative Ur Blood (Man) Negative Urine Nitrate Negative Urine Bilirubin Negative Urine Urobilinogen 1.0 Leukocyte Esterase Rfl Negative Urine RBC 0-2 Urine WBC 0-5 Ur Squamous Epith Cells None seen Urine Bacteria None seen Urine Casts 0-2 Vancomycin Trough 8.2 L
[2022-11-15] MEDS: KETOROLAC 30 MG/ML VIAL (*BKC) IV PUSH (07:55)
[2022-11-15 08:16] LABS: Hematocrit 37.1 % (42.0-52.0); Hemoglobin 13.1 g/dL (14.0-18.0); Mean Corpuscular HGB Conc 35.3 g/dl (32-36); Mean Corpuscular Hemoglobin 33.3 pg (26-34); Mean Corpuscular Volume 94.4 fl (80-100); Mean Platelet Volume 10.3 fl (7.4-10.4); Platelet Count Result 263 k/mm3 (150-375); Red Blood Count 3.93 M/mm3 (4.6-6.20); Red Cell Distribution Width 12.5 % (11.5-14.5); White Blood Count 16.6 K/mm3 (4.5-10.0)
[2022-11-15 08:28] LABS: Anion Gap 4 mmol/L (8-16); Blood Urea Nitrogen 5 mg/dL (9-20); Calcium 8.9 mg/dL (8.4-10.2); Carbon Dioxide 33 mmol/L (22-30); Chloride 98 mmol/L (98-107); Estimated CRCL calculation 159 ml/min; Estimated Glomerular Filt Rate > 60; Glucose 126 mg/dL (65-110); Potassium 3.4 mmol/L (3.4-5.0); Sodium 135 mmol/L (137-145)
[2022-11-15] MEDS: HYDROmorphone HCL INJ (*CRX) 1 MG/ML SYR IV PUSH ×2 (09:22→15:03)
--- NOTE | 2022-11-15 12:47 | WPDHPUPDATE1 ---
History and Physical Update Update Date/Time: 11/15/22 12:47 History and Physical has been reviewed, including an updated exam of the patient. There are NO changes in the patient's condition. Risks, benefits, and alternatives have been discussed and questions answered. Patient agrees to proceed with procedure.
--- NOTE | 2022-11-15 14:20 | PC.NURSE ---
On 11/15/22, the student, Brooke Duran, provided care and completed [facility] documentation on this patient. I have reviewed the student's documentation and agree with the findings.
--- NOTE | 2022-11-15 16:25 | PC.NURSE ---
To OR via stretcher.
[2022-11-15] MEDS: LACTATED RINGERS 1,000 ML 30 ML IV CONT (16:46)
[2022-11-15] MEDS: ACETAMINOPHEN 500 MG TABLET 1000 MG PO (16:56)
--- NOTE | 2022-11-15 17:04 | WPDANESEPPF ---
Anes - Initial Pre Proc Eval Procedure: Operation Date: 11/15/22 17:00 Proposed Procedures p Incision and Drainage Scrotal Abscess - Prudencio Obando MD Date/Time: 11/15/22 17:05 Surgeon: Rai Crum MD Pre Op Diagnosis: Scrotal Abscess Patient Data Age: 36 Gender: M Height: 1.91 m Weight: 77.2 kg Last Vital Signs Temp 38.0 C H 11/15/22 16:44 Pulse 103 H 11/15/22 16:44 Resp 18 11/15/22 16:44 BP 152/81 H 11/15/22 16:44 Pulse Ox 97 11/15/22 16:44 O2 Del Method Room Air 11/15/22 16:44 Allergies Allergy/AdvReac Type Severity Reaction Status Date / Time No Known Allergies Allergy Verified 11/15/22 16:47 Home Medications Medication Instructions Recorded Confirmed Type clonidine HCl 0.1 mg tablet 0.1 mg PO DAILY 05/10/22 11/13/22 History omeprazole 40 mg capsule,delayed 40 mg PO DAILY 05/10/22 11/13/22 History release sertraline 100 mg tablet 100 mg PO DAILY 05/22/22 11/13/22 History Laboratory Tests 11/14/22 11/15/22 11/15/22 19:03 05:49 05:49 WBC 16.6 K/mm3 H K/mm3 (4.5-10.0) RBC 3.93 M/mm3 L M/mm3 (4.6-6.20) Hgb 13.1 g/dL L g/dL (14.0-18.0) Hct 37.1 % L % (42.0-52.0) MCV 94.4 fl fl (80-100) MCH 33.3 pg pg (26-34) MCHC 35.3 g/dl g/dl (32-36) RDW 12.5 % % (11.5-14.5) Plt Count 263 k/mm3 k/mm3 (150-375) MPV 10.3 fl fl (7.4-10.4) Sodium Potassium Chloride Carbon Dioxide Anion Gap BUN Creatinine 0.60 mg/dL L mg/dL (0.7-1.3) Estim Creat Clear Calc 159 ml/min ml/min Estimated GFR > 60 (59 - ) Glucose Calcium Vancomycin Trough 8.2 ug/mL L ug/mL (10.0-20.0) 11/15/22 05:49 WBC RBC Hgb Hct MCV MCH MCHC RDW Plt Count MPV Sodium 135 mmol/L L mmol/L (137-145) Potassium 3.4 mmol/L mmol/L (3.4-5.0) Chloride 98 mmol/L mmol/L (98-107) Carbon Dioxide 33 mmol/L H mmol/L (22-30) Anion Gap 4 mmol/L L mmol/L (8-16) BUN 5 mg/dL L mg/dL (9-20) Creatinine 0.60 mg/dL L mg/dL (0.7-1.3) Estim Creat Clear Calc 159 ml/min ml/min Estimated GFR > 60 (59 - ) Glucose 126 mg/dL H mg/dL (65-110) Calcium 8.9 mg/dL mg/dL (8.4-10.2) Vancomycin Trough Patient hx anesthesia problems: none Family hx anesthesia problems: none Results Review: All pre-operative results and documents have been reviewed as part of the pre-operative evaluation. [facility] Past Medical History Medical History (Updated 11/15/22 @ 14:12 by Jeevan Mojica DO) Acute nonintractable headache Acute right-sided low back pain with right-sided sciatica Allergy to bee sting Anxiety Dermatitis Erythema of skin Gastroesophageal reflux disease without esophagitis Glucosuria Hypertension Hypogonadism male Memory changes Mood changes JOVANI (obstructive sleep apnea) Poison sylvia Sinusitis Tobacco abuse Urinary frequency Word finding difficulty Surgical History Surgical History H/O wisdom tooth extraction History of tonsillectomy and adenoidectomy Lymph nodes enlarged 1989' Family History Family History Mother Hypertension Grandparent Hypertension Social History Social History Smoking packs per day: 2 Smoking cigarettes per day: 40.0 Years smoked: 15 Smoking pack-years: 30.00 Smoking status: Current every day smoker Tobacco type: cigarettes Second hand tobacco smoke exposure: Yes Alcohol intake: current Drinks per week: 20 Substance use: current Substance use type: marijuana Lack of Transportation:
[2022-11-15] MEDS: BUPivacaine HCL 0.5% PF 30 ML VIAL 10 ML INFILTRATE (17:30)
[2022-11-15] MEDS: ceFAZolin SODIUM 1 GM VIAL IRRIGATION (17:32)
--- NOTE | 2022-11-15 17:53 | W.PM.PROC2 ---
Procedure Note - Detailed Date of Procedure 11/15/22 Pre-op Diagnosis Scrotal Abscess Post-op Diagnosis Same Procedure Performed Incision and drainage of right-sided scrotal abscess Washout with antibiotic irrigation Wound packing Surgeon Prudencio Obando MD Anesthesia General Description of Procedure Informed consent was obtained. Patient to have he was preoperative IV antibiotics floor. Induced anesthesia he was prepped and draped sterile fashion. A 4cm midline scrotal incision was made. Upon probing and deeper tissue there was prompt return of purulence drainage. [id number] of pus were evacuated that appeared to be surrounding the right testicle. The space was then irrigated copiously. Hemostasis was achieved. We took great care not to injure the spermatic cord or testicle. Again irrigated copiously. Marcaine was injected into the wound edges. We then packed the wound with 1in iodoform gauze. Compressive dressing was placed patient was taken recovery stable condition. Urine Output 400 Pathology Yes (Culture) Complications No immediate complications Condition Stable Disposition PACU
[2022-11-15] MEDS: fentaNYL CITRATE INJ (*CRX) 100 MCG/2 ML VIAL 25 MCG IV PUSH ×3 (18:14→18:23)
--- NOTE | 2022-11-15 18:56 | PC.NURSE ---
Back from OR via stretcher.
[2022-11-15 20:38] LABS: Vancomycin Trough 35.2 ug/mL (10.0-20.0)
[2022-11-15] MEDS: ZOLPIDEM TARTRATE (*CRX) 5 MG TABLET 10 MG PO (22:58)
[2022-11-15] MEDS: HYDROcodone/acetaminophen (*CRX) 5-325 MG TABLET 1 TAB PO (22:58)
[2022-11-16 00:33] VITALS: BP 116/80; PULSE 79; RESP 16; TEMP 36.5; O2SAT 95
[2022-11-16 04:33] VITALS: BP 144/81; PULSE 100; RESP 18; TEMP 37.2; O2SAT 99
[2022-11-16 05:36] LABS: Estimated CRCL calculation 49 ml/min; Estimated Glomerular Filt Rate 36
[2022-11-16 05:39] LABS: Hematocrit 37.6 % (42.0-52.0); Hemoglobin 13.3 g/dL (14.0-18.0); Mean Corpuscular HGB Conc 35.4 g/dl (32-36); Mean Corpuscular Hemoglobin 33.2 pg (26-34); Mean Corpuscular Volume 93.8 fl (80-100); Mean Platelet Volume 9.8 fl (7.4-10.4); Platelet Count Result 260 k/mm3 (150-375); Red Blood Count 4.01 M/mm3 (4.6-6.20); Red Cell Distribution Width 12.3 % (11.5-14.5); White Blood Count 12.8 K/mm3 (4.5-10.0)
[2022-11-16 05:58] LABS: Vancomycin Random 27.3 ug/mL (10-20)
[2022-11-16 08:00] VITALS: BP 127/92; PULSE 89; RESP 17; TEMP 36.4; O2SAT 97
[2022-11-16] MEDS: HYDROcodone/acetaminophen (*CRX) 5-325 MG TABLET 1 TAB PO ×3 (08:47→20:11)
--- NOTE | 2022-11-16 11:18 | WPDANESPN ---
Anes - Prog Note Post-Op Date/Time: 11/16/22 11:18 Cardiovascular status: normal Respiratory status: normal Airway patency: baseline Mental status: baseline Post-Op hydration status: normal Vital Signs: Last Vital Signs Temp 97.6 F 11/16/22 08:00 Pulse 89 11/16/22 08:00 Resp 17 11/16/22 08:00 BP 127/92 H 11/16/22 08:00 Pulse Ox 97 11/16/22 08:00 O2 Del Method Room Air 11/16/22 08:00 O2 Flow Rate 6 11/15/22 17:54 Pain Score (VAS): 0 I/O: Intake & Output 11/15/22 11/16/22 11/16/22 23:59 07:59 15:59 Intake Total 300 550 720 Output Total 400 Balance -100 550 720 Laboratory Tests 11/16/22 05:18 11/16/22 05:18 11/15/22 11/16/22 11/16/22 19:52 05:18 05:18 WBC RBC Hgb Hct MCV MCH MCHC RDW Plt Count MPV Creatinine 2.10 H Estim Creat Clear Calc 49 Estimated GFR 36 L Vancomycin Trough 35.2 H Random Vancomycin 27.3 H 11/16/22 05:18 WBC 12.8 H RBC 4.01 L Hgb 13.3 L Hct 37.6 L MCV 93.8 MCH 33.2 MCHC 35.4 RDW 12.3 Plt Count 260 MPV 9.8 Creatinine Estim Creat Clear Calc Estimated GFR Vancomycin Trough Random Vancomycin Microbiology 11/15/22 17:30 Abscess Anaerobic Culture - Preliminary 11/13/22 07:06 Blood Blood Culture - Preliminary 11/13/22 07:06 Blood Blood Culture - Preliminary Post-procedural complaints: none Patient Feedback: Patient satisfied with anesthetic care.
--- NOTE | 2022-11-16 12:32 | WPDUROPN2 ---
Progress Note: A&P Assessment and Plan (1) Abscess of scrotal wall: Code(s): N49.2 - Inflammatory disorders of scrotum Status: Acute Assessment and Plan: Vancomycin held d/t ASTER, continue Ceftriaxone and add Doxycycline instead. I had a long discussion with Infectious Disease pharmacist regarding this decision. Will plan to repeat creatinine tomorrow to ensure it improves. The patient's will re-pack and dress his scrotal wound today. If he tolerates this well and his ASTER is improved tomorrow, ok to send home on culture appropriate antibiotics. Waiting for culture results, creatinine to improve and fever to break. Subjective Subjective Date/Time Seen: 11/16/22 12:32 S/P I&D of right scrotal abscess, washout with antibiotics and wound packing. Patient is doing much better today, low grade fever of 99, pain is improved and packing was removed this am by wound care. is to learn wound care and dressing changes today. WBC is decreased to 12.8 from 16.6. Post Op day: 1 Review of Systems Cardiovascular: Cardiovascular: Denies chest pain Respiratory: Respiratory: Reports no additional respiratory complaints Gastrointestinal: Gastrointestinal: Denies abdominal pain, Denies nausea and Denies vomiting Genitourinary: Genitourinary: Denies hematuria, Reports genital pain, Denies dysuria, Denies flank pain, Reports scrotal swelling, Denies testicular pain, Denies urinary frequency and Denies urinary hesitancy Exam Const: General: cooperative Resp: Effort & Inspection: normal respiratory effort Cardio: Rate: regular rate GI: GI Palp: Yes Soft to palpation and No Tenderness to palpation present (GI) : Scrotum: ecchymosis on the right, edematous on the right, scrotal swelling on the right and other (right scrotal cavity is pink and wound bed has granualation tissue, no puss) Extrem: Right lower extremity: no edema Left lower extremity: no edema Objective Data Vital Signs Vital Signs: Vital Signs - 24 hr 11/15/22 13:00 11/15/22 16:44 11/15/22 17:54 Temperature 98.2 F 100.4 F H 99.7 F H Pulse Rate 96 103 H 82 Respiratory Rate 18 18 20 Blood Pressure 136/84 152/81 H 112/62 Pulse Oximetry 100 97 99 Oxygen Delivery Room Air Simple Face Mask Oxygen Flow Rate 6 11/15/22 18:05 04/19/23 18:20 11/15/22 18:30 Temperature 99.3 F Pulse Rate 102 H 92 92 Respiratory Rate 18 18 16 Blood Pressure 118/68 146/83 H 134/87 Pulse Oximetry 100 97 94 Oxygen Delivery Room Air Room Air Room Air Oxygen Flow Rate 11/15/22 18:47 11/15/22 19:02 11/15/22 20:00 Temperature 98.7 F 98.6 F Pulse Rate 95 88 Respiratory Rate 16 16 Blood Pressure 127/79 136/79 Pulse Oximetry 95 97 Oxygen Delivery Room Air Oxygen Flow Rate 11/15/22 19:33 11/15/22 20:33 11/16/22 00:33 Temperature 96.9 F L 96.6 F L 97.7 F Pulse Rate 92 87 79 Respiratory Rate 16 18 16 Blood Pressure 152/73 H 139/84 116/80 Pulse Oximetry 100 98 95 Oxygen Delivery Oxygen Flow Rate 11/16/22 04:33 11/16/22 08:00 11/16/22 08:00 Temperature 99 F 97.6 F Pulse Rate 100 89 Respiratory Rate 18 17 Blood Pressure 144/81 H 127/92 H Pulse Oximetry 99 97 Oxygen Delivery Room Air Oxygen Flow Rate Intake/Output Intake/Output: Intake & Output 11/13/22 11/14/22 11/15/22 11/16/22 23:59 23:59 23:59 23:59 Intake Total 5870 4970 1900 1270 Output Total 850 2300 1950 Balance 5020 2670 -50 1270 Meds/Results Medications: Active Medications Generic Name Dose Route Start Last Admin Trade Name Perezq PRN Reason Stop Dose Admin Acetaminophen 650 mg 11/13/22 09:06 11/14/22 14:04 Acetaminophen 325 Mg Tablet PO 650 mg Q4H PRN Administration Headache Hydrocodone Bitart/Acetaminophen 1 tab 11/13/22 12:45 11/16/22 08:47 Hydrocodone/Acetaminophen (*Crx) 5-325 Mg Tablet PO 1 tab Q4H PRN Administration Pain Rated 4-6 Hydromorphone HCl 1 mg 11/15/22 08:54 11/15/22 15:03 Hydrom
--- NOTE | 2022-11-16 12:41 | IDPHARM ---
Subjective Pharmacy was consulted by Lion Cabrera regarding infectious diseases for Wisam De La O. Wisam De La O is a 36 year old M with concerns regarding a scrotal abscess. Background The patient is currently receiving Vancomycin IV (11/13/22-) and ceftriaxone 1g q24h (11/13/22-). The patient's PMH includes a recent vasectomy (3 weeks ago) among other conditions noted in the history and physical. Additionally, patient has been afebrile for >48 hours and recent WBC (18.1 - 16.6 - 12.8) appears to be responding to both the antibiotics and I&D performed yesterday on 11/15/22 that yielded a culture and ~100 mL of pus per the operative note. 11/13/22 blood culture is no growth to date at this time. Per discussion with the provider, the patient is likely soon to require a dressing change - perhaps in the OR. The patient has had recent vancomycin troughs that are likely supratherapeutic along with a sharp increase in serum creatinine from 11/15 to 11/16. 11/14/22 11/15/22 11/16/22 06:02 05:49 05:18 Creatinine 0.60 L 0.60 L 2.10 H 11/15/22 11/16/22 19:52 05:18 Vancomycin Trough 35.2 H Random Vancomycin 27.3 H Assessment/Recommendation/Discussion Spoke with consulting provider regarding this patient. In order to reduce the likelihood of additional vancomycin induced nephrotoxicity, will discontinue vancomycin at this time and initiate doxycycline for continued MRSA coverage along with the ceftriaxone. Doxycycline IV 100 mg q12h and Ceftriaxone 1g q24h. Will look to tailor antibiotics to this operative culture from 11/15 while continuing to follow the 11/13 blood cultures as well. Will follow WBC for continued trend as well and follow up with consulting service as more information comes to light. Will defer further renal function monitoring to provider team. Please consider reaching out in the meantime if I may be of additional help / patient condition or indication changes. Thank you for the interesting consult. Asim Altamirano, PharmD Infectious Disease/Antimicrobial Stewardship Pharmacist 11/16/22; [id number]
[2022-11-16 16:00] VITALS: BP 140/80; PULSE 83; RESP 17; TEMP 36.6; O2SAT 98
[2022-11-16] MEDS: SERTRALINE HCL 50 MG TABLET 100 MG PO (16:02)
[2022-11-16] MEDS: cloNIDine HCL 0.1 MG TABLET PO (16:02)
[2022-11-16 20:00] VITALS: PULSE 77; RESP 16; O2SAT 100
[2022-11-16 20:33] VITALS: BP 140/89; PULSE 77; RESP 16; TEMP 36.3; O2SAT 100
[2022-11-16] MEDS: ZOLPIDEM TARTRATE (*CRX) 5 MG TABLET 10 MG PO (20:51)
[2022-11-16] MEDS: DOXYCYCLINE 100 MG/NS 100 ML 100 MG/100 ML BAG IVPB (20:52)
[2022-11-17 00:06] VITALS: BP 133/88; PULSE 68; RESP 20; TEMP 36; O2SAT 96
[2022-11-17] MEDS: HYDROcodone/acetaminophen (*CRX) 5-325 MG TABLET 1 TAB PO ×5 (04:58→22:58)
[2022-11-17 05:17] VITALS: BP 137/92; PULSE 70; RESP 16; TEMP 36.1; O2SAT 98
[2022-11-17 07:01] LABS: Hematocrit 37.3 % (42.0-52.0); Hemoglobin 12.9 g/dL (14.0-18.0); Mean Corpuscular HGB Conc 34.6 g/dl (32-36); Mean Corpuscular Hemoglobin 32.4 pg (26-34); Mean Corpuscular Volume 93.7 fl (80-100); Mean Platelet Volume 9.5 fl (7.4-10.4); Platelet Count Result 289 k/mm3 (150-375); Red Blood Count 3.98 M/mm3 (4.6-6.20); Red Cell Distribution Width 12.3 % (11.5-14.5); White Blood Count 9.8 K/mm3 (4.5-10.0)
[2022-11-17 07:12] LABS: Anion Gap 5 mmol/L (8-16); Blood Urea Nitrogen 21 mg/dL (9-20); Carbon Dioxide 34 mmol/L (22-30); Chloride 98 mmol/L (98-107); Estimated CRCL calculation 45 ml/min; Estimated Glomerular Filt Rate 33; Glucose 109 mg/dL (65-110); Potassium 3.9 mmol/L (3.4-5.0); Sodium 137 mmol/L (137-145)
[2022-11-17 08:00] VITALS: BP 134/93; PULSE 83; RESP 16; TEMP 36.1; O2SAT 100
[2022-11-17] MEDS: cloNIDine HCL 0.1 MG TABLET PO (09:02)
[2022-11-17] MEDS: SERTRALINE HCL 50 MG TABLET 100 MG PO (09:03)
[2022-11-17] MEDS: DOXYCYCLINE 100 MG/NS 100 ML 100 MG/100 ML BAG IVPB ×2 (09:44→20:42)
--- NOTE | 2022-11-17 09:54 | WPDUROPN2 ---
Progress Note: A&P Assessment and Plan (1) Abscess of scrotal wall: Code(s): N49.2 - Inflammatory disorders of scrotum Status: Acute Assessment and Plan: Wound Care following. does feel comfortable dressing changes. Awaiting culture. Will then discharge home on p.o. antibiotics (2) Acute kidney injury: Code(s): N17.9 - Acute kidney failure, unspecified Status: Acute Assessment and Plan: Renal ultrasound, Nephrology consult, Toradol has been discontinued Subjective Subjective Date/Time Seen: 11/17/22 09:54 Review of Systems Review of Systems: His is learning dressing care. She feels comfortable doing it. Creatinine is 2.3 today. Will get a renal ultrasound. Nephrology has been consulted. I have stopped his Toradol. I suspect the acute renal failure is due to nephrotoxins Exam Narrative: No acute distress Thin Phallus normal I examined the wound. There is minimal fibrous exudate. There is no necrotic tissue. I removed and replaced the wound packing. Wound Care has seen the patient. Objective Data Vital Signs Vital Signs: Vital Signs - 24 hr 11/16/22 16:00 11/16/22 20:33 11/16/22 20:00 Temperature 97.9 F 97.3 F L Pulse Rate 83 77 77 Respiratory Rate 17 16 16 Blood Pressure 140/80 140/89 Pulse Oximetry 98 100 100 Oxygen Delivery Room Air 11/17/22 00:06 11/17/22 05:17 11/17/22 08:00 Temperature 96.8 F L 97 F L 96.9 F L Pulse Rate 68 70 83 Respiratory Rate 20 16 16 Blood Pressure 133/88 137/92 H 134/93 H Pulse Oximetry 96 98 100 Oxygen Delivery Intake/Output Intake/Output: Intake & Output 11/14/22 11/15/22 11/16/22 11/17/22 23:59 23:59 23:59 23:59 Intake Total 4970 1900 2220 400 Output Total 2300 1950 Balance 2670 -50 2220 400 Meds/Results Medications: Active Medications Generic Name Dose Route Start Last Admin Trade Name Freq PRN Reason Stop Dose Admin Acetaminophen 650 mg 11/13/22 09:06 11/14/22 14:04 Acetaminophen 325 Mg Tablet PO 650 mg Q4H PRN Administration Headache Hydrocodone Bitart/Acetaminophen 1 tab 11/13/22 12:45 11/17/22 09:02 Hydrocodone/Acetaminophen (*Crx) 5-325 Mg Tablet PO 1 tab Q4H PRN Administration Pain Rated 4-6 Clonidine HCl 0.1 mg 11/16/22 14:59 11/17/22 09:02 Clonidine Hcl 0.1 Mg Tablet PO 0.1 mg DAILY JANE Administration Hydromorphone HCl 1 mg 11/15/22 08:54 11/15/22 15:03 Hydromorphone Hcl Inj (*Crx) 1 Mg/Ml Syr IV PUSH 1 mg Q3H PRN Administration Pain Rated 7-10 Ceftriaxone Sodium 1 gm in 50 mls @ 100 mls/hr 11/13/22 10:00 11/17/22 09:03 Rocephin 1 Gm/Ns 50 Ml IVPB 100 mls/hr Q24H JANE Administration Doxycycline Hyclate 100 mg in 100 mls @ 100 mls/hr 11/16/22 21:00 11/17/22 09:44 Vibramycin 100 Mg/Ns 100 Ml IVPB 100 mls/hr Q12H JANE Administration Sertraline HCl 100 mg 11/16/22 14:59 11/17/22 09:03 Sertraline Hcl 50 Mg Tablet PO 100 mg DAILY JANE Administration Silver Nitrate 1 each 11/16/22 09:00 11/17/22 09:44 Aquacel Ag Advantage Bandage (*Bkc) TOPICAL 1 each DAILY JANE Administration Zolpidem Tartrate 10 mg 11/14/22 20:58 11/16/22 20:51 Zolpidem Tartrate (*Crx) 5 Mg Tablet PO 10 mg HS PRN Administration Insomnia Radiology Results: ITS Impressions Pelvis CT 11/13/22 06:21 Impression: No evidence of gas in the scrotum to suggest Jeanine's gangrene. Diffuse scrotal wall edema with small right hydrocele. Suspected 3.2 x 1.4 x 4.1 cm abscess in the right hemiscrotum, posterior to the testis, as detailed above. Scrotum Ultrasound 11/15/22 09:29 IMPRESSION: 1. Peripheral increase in size of a right peritesticular scrotal abscess. 2. Normal bilateral testes and epididymides with small complex right hydrocele. Labs Labs: Laboratory Results - last 24 hr 11/17/22 11/17/22 06:51 06:51 WBC 9.8 RBC 3.98 L Hgb 12.9 L Hct 37
--- NOTE | 2022-11-17 11:15 | PM.CNNEP ---
Assessment and Plan Assessment and plan (1) Acute kidney injury: Code(s): N17.9 - Acute kidney failure, unspecified Status: Acute Assessment and Plan: etiology?? suspicion falls on: infection (possible mild ATN) medications (Toradol + antibiotics) contrast exposure (on 11/13/22) possible prerenal factors blood pressure stable no critical electrolytes continues to make urine follow-up on renal ultrasound and urine testing follow repeat labs and UOP (2) Abscess of scrotal wall: Code(s): N49.2 - Inflammatory disorders of scrotum Status: Acute Assessment and Plan: s/p I & D (on 11/15/22) local wound care on antibiotics (3) Hypertension: Code(s): I10 - Essential (primary) hypertension Status: Chronic Assessment and Plan: reasonable control consider picking a different agent on discharge (clonidine not the best agent) follow trend of hemodynamics I will continue follow the patient with you while he remains hospitalized and make further recommendations during his hospital course. Thank you for allowing me to participate in the care this patient. History of Present Illness Reason for Consult Consult date: 11/17/22 Reason for consult: acute renal failure Chief Complaint Chief complaint: Scrotal Abscess History of Present Illness Narrative: The patient is a 36-year-old male with a past medical history as a low [facility] with complaints of testicular pain. The patient apparently had a vasectomy approximately three weeks ago and since that time, he has noticed increased swelling/edema in his right testicular area. Initially the swelling/edema was not causing discomfort but in the last several days, he has had increasingly more pain and till ventrally he presented to the emergency room due to his inability to tolerate the worsening pain in general. Aside from the pain itself, he had no other symptoms regard to fevers, chills, nausea, vomiting or any other subjective symptoms. Workup and evaluation in the emergency room demonstrated the patient be hemodynamically stable but in mild distress secondary to his right testicular pain. Routine blood tests were significant for mildly elevated white blood cell count, but no other significant metabolic abnormalities. Subsequent imaging including a scrotal ultrasound and CT scan demonstrated a suspected 3.2 x 1.4 x 4.1 cm abscess in the right hemiscrotum along with right epididymoorchitis. Urology was consult on the ER and he was subsequently admitted to the hospital for further evaluation and treatment in the form of IV antibiotics and observation. Since his admission, repeat imaging demonstrated increase in size of the suspect abscess despite appropriate antibiotic therapy. He was subsequently taken to the OR for incision and drainage of this abscess for definitive treatment. He tolerated intervention reasonably well as currently tolerating local wound care as. Renal consultation was requested due to his acute kidney injury/acute renal failure. The patient has normal kidney function at baseline it had been fairly stable up until 48 hr ago when his creatinine went from 0.6 to 2.1 mg/dL. Subsequent repeat testing this morning showed his creatinine of 2.3 mg/dL. In spite of this change in his kidney function, he appears to be making fairly good urine output with no critical electrolyte abnormalities. He has never had any issues or problems with kidney function the past and continues to eat and drink reasonably well without any other acute issues to report. Currently, at the time my visit, he appears to be in no acute distress. Review of Systems Review of Systems: As per HPI. [facility] Past Medical History Medical History (Updated 11/18/22 @ 00:32 by Manju Downs MD) Acute nonintractable headache Acute right-sided low back pain with right-sided sciatica Allergy to bee
[2022-11-17 12:22] VITALS: BP 143/85; PULSE 69; RESP 22; TEMP 36.3; O2SAT 99
[2022-11-17 13:30] LABS: Total Protein Urine Random 23 mg/dL; Ur Ttl Prot Creatinine Ratio 0.32 mg/mg (0-0.20); Urea Random Urine 275 MG/DL
[2022-11-17 13:31] LABS: Sodium Urine Random 27 meq/L
[2022-11-17 14:11] LABS: Eosinophil Urine None Seen % (None Seen); Urine Eos QC 2nd Tech Confirmed
[2022-11-17 20:00] VITALS: BP 137/87; PULSE 75; RESP 16; TEMP 35.9; O2SAT 100
[2022-11-17] MEDS: ZOLPIDEM TARTRATE (*CRX) 5 MG TABLET 10 MG PO (22:58)
[2022-11-18 01:04] VITALS: BP 124/89; PULSE 71; RESP 20; TEMP 35.6; O2SAT 99
[2022-11-18] MEDS: SODIUM CHLORIDE 0.9% IV 1,000 ML 75 ML IV CONT (02:23)
[2022-11-18 06:09] VITALS: BP 151/90; PULSE 84; RESP 16; TEMP 35.5; O2SAT 100
[2022-11-18 07:45] LABS: Anion Gap 6 mmol/L (8-16); Blood Urea Nitrogen 20 mg/dL (9-20); Calcium 9.3 mg/dL (8.4-10.2); Carbon Dioxide 32 mmol/L (22-30); Chloride 102 mmol/L (98-107); Creatine Kinase 24 U/L (55-170); Estimated CRCL calculation 49 ml/min; Estimated Glomerular Filt Rate 36; Glucose 99 mg/dL (65-110); Potassium 3.9 mmol/L (3.4-5.0); Sodium 140 mmol/L (137-145)
[2022-11-18 07:53] LABS: Hematocrit 37.7 % (42.0-52.0); Mean Corpuscular HGB Conc 34.5 g/dl (32-36); Mean Corpuscular Hemoglobin 33.4 pg (26-34); Mean Corpuscular Volume 96.9 fl (80-100); Mean Platelet Volume 9.8 fl (7.4-10.4); Platelet Count Result 346 k/mm3 (150-375); Red Blood Count 3.89 M/mm3 (4.6-6.20); Red Cell Distribution Width 12.5 % (11.5-14.5); White Blood Count 9.5 K/mm3 (4.5-10.0)
[2022-11-18] MEDS: HYDROcodone/acetaminophen (*CRX) 5-325 MG TABLET 1 TAB PO ×3 (08:55→21:25)
[2022-11-18] MEDS: SERTRALINE HCL 50 MG TABLET 100 MG PO (08:55)
[2022-11-18] MEDS: cloNIDine HCL 0.1 MG TABLET PO (08:55)
[2022-11-18] MEDS: DOXYCYCLINE 100 MG/NS 100 ML 100 MG/100 ML BAG IVPB ×2 (08:56→21:25)
--- NOTE | 2022-11-18 10:40 | P.PNNP_ITS ---
Progress Note: A&P Assessment and Plan (1) Acute kidney injury: Code(s): N17.9 - Acute kidney failure, unspecified Status: Acute Assessment and Plan: * acute kidney injury. * Renal ultrasound okay * urine electrolytes non pre renal * suspicion falls on: * infection (possible mild ATN) * medications (Toradol + antibiotics) * contrast exposure (on 11/13/22) * blood pressure stable * volume status looks good * no critical electrolytes * continues to make urine * Creatinine is a little bit better today. * If substantially better tomorrow he could probably be discharged from the kidney stand * will check another creatinine tomorrow (2) Abscess of scrotal wall: Code(s): N49.2 - Inflammatory disorders of scrotum Status: Acute Assessment and Plan: * s/p I & D (on 11/15/22) * local wound care * on antibiotics (3) Hypertension: Code(s): I10 - Essential (primary) hypertension Status: Chronic Assessment and Plan: * blood pressure somewhat erratic ranging from 120-151 * will stop clonidine and add low-dose amlodipine tomorrow * follow trend of hemodynamics Subjective Date/time seen: 11/18/22 10:40 Interval history: Wisam is feeling better today. No chest pain or shortness of breath he is making urine Review of Systems Cardiovascular: Cardiovascular: Reports no additional cardiovascular complaints Respiratory: Respiratory: Reports no additional respiratory complaints Gastrointestinal: Gastrointestinal: Reports no additional gastrointestinal complaints Genitourinary: Genitourinary: Reports no additional male genitourinary complaints Exam Narrative: WDWN in NAD skin no rash head ncat lungs clear cor reg no rub abd BS+ nontender and soft ext no edema. Objective Data Vital Signs Vital Signs: Vital Signs - 24 hr 11/17/22 12:22 11/17/22 20:00 11/18/22 01:04 Temperature 97.4 F L 96.6 F L 96.1 F L Pulse Rate 69 75 71 Respiratory Rate 22 H 16 20 Blood Pressure 143/85 H 137/87 124/89 Pulse Oximetry 99 100 99 11/18/22 06:09 Temperature 96 F L Pulse Rate 84 Respiratory Rate 16 Blood Pressure 151/90 H Pulse Oximetry 100 Intake/Output Intake/Output: Intake & Output 11/15/22 11/16/22 11/17/22 11/18/22 23:59 23:59 23:59 23:59 Intake Total 1900 2220 2160 890 Output Total 1950 300 400 Balance -50 2220 1860 490 Meds/Results Medications: Active Medications Generic Name Dose Route Start Last Admin Trade Name Freq PRN Reason Stop Dose Admin Acetaminophen 650 mg 11/13/22 09:06 11/14/22 14:04 Acetaminophen 325 Mg Tablet PO 650 mg Q4H PRN Administration Headache Hydrocodone Bitart/Acetaminophen 1 tab 11/13/22 12:45 11/18/22 08:55 Hydrocodone/Acetaminophen (*Crx) 5-325 Mg Tablet PO 1 tab Q4H PRN Administration Pain Rated 4-6 Clonidine HCl 0.1 mg 11/16/22 14:59 11/18/22 08:55 Clonidine Hcl 0.1 Mg Tablet PO 0.1 mg DAILY JANE Administration Hydromorphone HCl 1 mg 11/15/22 08:54 11/15/22 15:03
--- NOTE | 2022-11-18 10:40 | PM.PNNEP ---
Progress Note: A&P Assessment and Plan (1) Acute kidney injury: Code(s): N17.9 - Acute kidney failure, unspecified Status: Acute Assessment and Plan: acute kidney injury. Renal ultrasound okay urine electrolytes non pre renal suspicion falls on: infection (possible mild ATN) medications (Toradol + antibiotics) contrast exposure (on 11/13/22) blood pressure stable volume status looks good no critical electrolytes continues to make urine Creatinine is a little bit better today. If substantially better tomorrow he could probably be discharged from the kidney stand will check another creatinine tomorrow (2) Abscess of scrotal wall: Code(s): N49.2 - Inflammatory disorders of scrotum Status: Acute Assessment and Plan: s/p I & D (on 11/15/22) local wound care on antibiotics (3) Hypertension: Code(s): I10 - Essential (primary) hypertension Status: Chronic Assessment and Plan: blood pressure somewhat erratic ranging from 120-151 will stop clonidine and add low-dose amlodipine tomorrow follow trend of hemodynamics Subjective Date/time seen: 11/18/22 10:40 Interval history: Wisam is feeling better today. No chest pain or shortness of breath he is making urine Review of Systems Cardiovascular: Cardiovascular: Reports no additional cardiovascular complaints Respiratory: Respiratory: Reports no additional respiratory complaints Gastrointestinal: Gastrointestinal: Reports no additional gastrointestinal complaints Genitourinary: Genitourinary: Reports no additional male genitourinary complaints Exam Narrative: WDWN in NAD skin no rash head ncat lungs clear cor reg no rub abd BS+ nontender and soft ext no edema. Objective Data Vital Signs Vital Signs: Vital Signs - 24 hr 11/17/22 12:22 11/17/22 20:00 11/18/22 01:04 Temperature 97.4 F L 96.6 F L 96.1 F L Pulse Rate 69 75 71 Respiratory Rate 22 H 16 20 Blood Pressure 143/85 H 137/87 124/89 Pulse Oximetry 99 100 99 11/18/22 06:09 Temperature 96 F L Pulse Rate 84 Respiratory Rate 16 Blood Pressure 151/90 H Pulse Oximetry 100 Intake/Output Intake/Output: Intake & Output 11/15/22 11/16/22 11/17/22 11/18/22 23:59 23:59 23:59 23:59 Intake Total 1900 2220 2160 890 Output Total 1950 300 400 Balance -50 2220 1860 490 Meds/Results Medications: Active Medications Generic Name Dose Route Start Last Admin Trade Name Freq PRN Reason Stop Dose Admin Acetaminophen 650 mg 11/13/22 09:06 11/14/22 14:04 Acetaminophen 325 Mg Tablet PO 650 mg Q4H PRN Administration Headache Hydrocodone Bitart/Acetaminophen 1 tab 11/13/22 12:45 11/18/22 08:55 Hydrocodone/Acetaminophen (*Crx) 5-325 Mg Tablet PO 1 tab Q4H PRN Administration Pain Rated 4-6 Clonidine HCl 0.1 mg 11/16/22 14:59 11/18/22 08:55 Clonidine Hcl 0.1 Mg Tablet PO 0.1 mg DAILY JANE Administration Hydromorphone HCl 1 mg 11/15/22 08:54 11/15/22 15:03 Hydromorphone Hcl Inj (*Crx) 1 Mg/Ml Syr IV PUSH 1 mg Q3H PRN Administration Pain Rated 7-10 Ceftriaxone Sodium 1 gm in 50 mls @ 100 mls/hr 11/13/22 10:00 11/17/22 09:30 Rocephin 1 Gm/Ns 50 Ml IVPB Infused Q24H JANE Infusion Doxycycline Hyclate 100 mg in 100 mls @ 100 mls/hr 11/16/22 21:00 11/18/22 08:56 Vibramycin 100 Mg/Ns 100 Ml IVPB 100 mls/hr Q12H JANE Administration Sodium Chloride 1,000 mls @ 75 mls/hr 11/18/22 00:45 11/18/22 02:23 Normal Saline Iv IV CONT 11/18/22 14:04 75 mls/hr .[id number] JANE Administration Sertraline HCl 100 mg 11/16/22 14:59 11/18/22 08:55 Sertraline Hcl 50 Mg Tablet PO 100 mg DAILY JANE Administration Silver Nitrate 1 each 11/16/22 09:00 11/18/22 08:57 Aquacel Ag Advantage Bandage (*Bkc) TOPICAL 1 each DAILY JANE Administration Zolpidem Tartrate 10 mg 11/14/22 20:58 11/17/22 22:58 Zolpidem Tartrate (*
[2022-11-18] MEDS: ALPRAZolam (*CRX) 0.25 MG TABLET PO (11:27)
--- NOTE | 2022-11-18 12:30 | WPDUROPN2 ---
Progress Note: A&P Assessment and Plan (1) Abscess of scrotal wall: Code(s): N49.2 - Inflammatory disorders of scrotum Status: Acute Plan Continue Abx, wound culture still prelim with gram positive cocci. Continue dressing changes and educating patient and patient's in appropriate wound care. Continue inpatient stay, check labs tomorrow, per Dr. Hudson if improvement in SCr noted, likely stable for DC. Subjective Subjective Date/Time Seen: 11/18/22 12:30 NAEO, reports improvement in pain control. Frustrated with inpatient stay. Exam Narrative: NAD, A&Ox3 RRR eWOB S/NT/ND Scrotum edematous, wound bed with good granulation tissue--beefy red. No erythema or crepitus. Objective Data Vital Signs Vital Signs: Vital Signs - 24 hr 11/17/22 20:00 11/18/22 01:04 11/18/22 06:09 Temperature 96.6 F L 96.1 F L 96 F L Pulse Rate 75 71 84 Respiratory Rate 16 20 16 Blood Pressure 137/87 124/89 151/90 H Pulse Oximetry 100 99 100 Intake/Output Intake/Output: Intake & Output 11/15/22 11/16/22 11/17/22 11/18/22 23:59 23:59 23:59 23:59 Intake Total 1900 2220 2160 890 Output Total 1950 300 400 Balance -50 2220 1860 490 Meds/Results Medications: Active Medications Generic Name Dose Route Start Last Admin Trade Name Freq PRN Reason Stop Dose Admin Acetaminophen 650 mg 11/13/22 09:06 11/14/22 14:04 Acetaminophen 325 Mg Tablet PO 650 mg Q4H PRN Administration Headache Hydrocodone Bitart/Acetaminophen 1 tab 11/13/22 12:45 11/18/22 08:55 Hydrocodone/Acetaminophen (*Crx) 5-325 Mg Tablet PO 1 tab Q4H PRN Administration Pain Rated 4-6 Hydromorphone HCl 1 mg 11/15/22 08:54 11/15/22 15:03 Hydromorphone Hcl Inj (*Crx) 1 Mg/Ml Syr IV PUSH 1 mg Q3H PRN Administration Pain Rated 7-10 Ceftriaxone Sodium 1 gm in 50 mls @ 100 mls/hr 11/13/22 10:00 11/18/22 11:17 Rocephin 1 Gm/Ns 50 Ml IVPB 100 mls/hr Q24H JANE Administration Doxycycline Hyclate 100 mg in 100 mls @ 100 mls/hr 11/16/22 21:00 11/18/22 08:56 Vibramycin 100 Mg/Ns 100 Ml IVPB 100 mls/hr Q12H JANE Administration Sodium Chloride 1,000 mls @ 75 mls/hr 11/18/22 00:45 11/18/22 02:23 Normal Saline Iv IV CONT 11/18/22 14:04 75 mls/hr .[id number] JANE Administration Sertraline HCl 100 mg 11/16/22 14:59 11/18/22 08:55 Sertraline Hcl 50 Mg Tablet PO 100 mg DAILY JANE Administration Silver Nitrate 1 each 11/16/22 09:00 11/18/22 08:57 Aquacel Ag Advantage Bandage (*Bkc) TOPICAL 1 each DAILY JAEN Administration Zolpidem Tartrate 10 mg 11/14/22 20:58 11/17/22 22:58 Zolpidem Tartrate (*Crx) 5 Mg Tablet PO 10 mg HS PRN Administration Insomnia Radiology Results: ITS Impressions Pelvis CT 11/13/22 06:21 Impression: No evidence of gas in the scrotum to suggest Jeanine's gangrene. Diffuse scrotal wall edema with small right hydrocele. Suspected 3.2 x 1.4 x 4.1 cm abscess in the right hemiscrotum, posterior to the testis, as detailed above. Scrotum Ultrasound 11/15/22 09:29 IMPRESSION: 1. Peripheral increase in size of a right peritesticular scrotal abscess. 2. Normal bilateral testes and epididymides with small complex right hydrocele. Renal Ultrasound 11/17/22 11:59 Impression: 1: Unremarkable renal ultrasound. No stones, masses or hydronephrosis. Labs Labs: Laboratory Results - last 24 hr 11/17/22 11/17/22 11/18/22 13:05 13:05 07:10 WBC 9.5 RBC 3.89 L Hgb 13.0 L Hct 37.7 L MCV 96.9 MCH 33.4 MCHC 34.5 RDW 12.5 Plt Count 346 MPV 9.8 Sodium Potassium Chloride Carbon Dioxide Anion Gap BUN Creatinine Estim Creat Clear Calc Estimated GFR Glucose Calcium Total Creatine Kinase Urine Eosinophils None seen U Random Total Protein 23 Ur Random Sodium 27 Ur Random Urea 275 Urine Creatinine 72.0 Protein/Creat Rati
[2022-11-18 14:00] VITALS: BP 136/81; PULSE 72; RESP 16; TEMP 36.4; O2SAT 99
[2022-11-18 20:00] VITALS: BP 150/97; PULSE 65; RESP 16; TEMP 36.6; O2SAT 99
[2022-11-18] MEDS: ZOLPIDEM TARTRATE (*CRX) 5 MG TABLET 10 MG PO (21:25)
[2022-11-18 21:49] VITALS: PULSE 72; RESP 15; O2SAT 98
[2022-11-19 05:33] VITALS: BP 135/74; PULSE 68; RESP 14; TEMP 36.6; O2SAT 100
[2022-11-19 06:52] LABS: Albumin Level 3.6 g/dL (3.5-5.1); Anion Gap 5 mmol/L (8-16); Blood Urea Nitrogen 20 mg/dL (9-20); Calcium 9.5 mg/dL (8.4-10.2); Carbon Dioxide 34 mmol/L (22-30); Chloride 103 mmol/L (98-107); Estimated CRCL calculation 54 ml/min; Estimated Glomerular Filt Rate 41; Glucose 91 mg/dL (65-110); Potassium 4.2 mmol/L (3.4-5.0); Sodium 142 mmol/L (137-145)
[2022-11-19] MEDS: HYDROcodone/acetaminophen (*CRX) 5-325 MG TABLET 1 TAB PO (06:54)
[2022-11-19] MEDS: DOXYCYCLINE 100 MG/NS 100 ML 100 MG/100 ML BAG IVPB (08:10)
[2022-11-19] MEDS: SERTRALINE HCL 50 MG TABLET 100 MG PO (08:10)
--- NOTE | 2022-11-19 09:47 | PM.PNNEP ---
Progress Note: A&P Assessment and Plan (1) Acute kidney injury: Code(s): N17.9 - Acute kidney failure, unspecified Status: Acute Assessment and Plan: acute kidney injury. Renal ultrasound okay urine electrolytes non pre renal suspicion falls on: infection (possible mild ATN) medications (Toradol + antibiotics) contrast exposure (on 11/13/22) blood pressure is up and down a bit. He is on clonidine once a day. Will change to amlodipine if okay with the patient. volume status looks good no critical electrolytes continues to make urine Creatinine is better again today. I think he can go home if okay with everybody else. He should get a basic metabolic panel on Sunday or Sunday at Sara Faria's office (2) Abscess of scrotal wall: Code(s): N49.2 - Inflammatory disorders of scrotum Status: Acute Assessment and Plan: s/p I & D (on 11/15/22) local wound care on antibiotics (3) Hypertension: Code(s): I10 - Essential (primary) hypertension Status: Chronic Assessment and Plan: blood pressure somewhat erratic ranging from 120-151 clonidine held. Will add amlodipine. I tried calling the patient in the room and he did not answer so I let the nurse know to talk with him about it. Subjective Date/time seen: 11/19/22 09:47 Interval history: Wisam is feeling better today. Eager for discharge Exam Narrative: WDWN in NAD skin no rash head ncat lungs clear cor reg no rub abd BS+ nontender and soft ext no edema. Objective Data Vital Signs Vital Signs: Vital Signs - 24 hr 11/18/22 14:00 11/18/22 21:49 11/18/22 20:00 Temperature 97.5 F L 97.9 F Pulse Rate 72 72 65 Respiratory Rate 16 15 16 Blood Pressure 136/81 150/97 H Pulse Oximetry 99 98 99 Oxygen Delivery Autopap 11/19/22 05:33 11/19/22 08:00 Temperature 97.9 F Pulse Rate 68 Respiratory Rate 14 Blood Pressure 135/74 Pulse Oximetry 100 Oxygen Delivery Room Air Intake/Output Intake/Output: Intake & Output 11/16/22 11/17/22 11/18/22 11/19/22 23:59 23:59 23:59 23:59 Intake Total 2220 2160 1860 1900 Output Total 300 1600 1500 Balance 2220 1860 260 400 Meds/Results Medications: Active Medications Generic Name Dose Route Start Last Admin Trade Name Bong PRN Reason Stop Dose Admin Acetaminophen 650 mg 11/13/22 09:06 11/14/22 14:04 Acetaminophen 325 Mg Tablet PO 650 mg Q4H PRN Administration Headache Hydrocodone Bitart/Acetaminophen 1 tab 11/13/22 12:45 11/19/22 06:54 Hydrocodone/Acetaminophen (*Crx) 5-325 Mg Tablet PO 1 tab Q4H PRN Administration Pain Rated 4-6 Hydromorphone HCl 1 mg 11/15/22 08:54 11/15/22 15:03 Hydromorphone Hcl Inj (*Crx) 1 Mg/Ml Syr IV PUSH 1 mg Q3H PRN Administration Pain Rated 7-10 Ceftriaxone Sodium 1 gm in 50 mls @ 100 mls/hr 11/13/22 10:00 11/19/22 08:10 Rocephin 1 Gm/Ns 50 Ml IVPB 100 mls/hr Q24H JANE Administration Doxycycline Hyclate 100 mg in 100 mls @ 100 mls/hr 11/16/22 21:00 11/19/22 08:10 Vibramycin 100 Mg/Ns 100 Ml IVPB 100 mls/hr Q12H JANE Administration Sertraline HCl 100 mg 11/16/22 14:59 11/19/22 08:10 Sertraline Hcl 50 Mg Tablet PO 100 mg DAILY JANE Administration Silver Nitrate 1 each 11/16/22 09:00 11/19/22 08:11 Aquacel Ag Advantage Bandage (*Bkc) TOPICAL 1 each DAILY JANE Administration Zolpidem Tartrate 10 mg 11/14/22 20:58 11/18/22 21:25 Zolpidem Tartrate (*Crx) 5 Mg Tablet PO 10 mg HS PRN Administration Insomnia Radiology Results: ITS Impressions Pelvis CT 11/13/22 06:21 Impression: No evidence of gas in the scrotum to suggest Jeanine's gangrene. Diffuse scrotal wall edema with small right hydrocele. Suspected 3.2 x 1.4 x 4.1 cm abscess in the right hemiscrotum, posterior to the testis, as detailed above. Scrotum Ultrasound 11/15/22 09:29 IMPRESS
[2022-11-19] MEDS: amLODIPine BESYLATE 2.5 MG TABLET PO (10:39)
--- NOTE | 2022-11-19 11:47 | P.PNUR_ITS ---
Progress Note: A&P Assessment and Plan (1) Abscess of scrotal wall: Code(s): N49.2 - Inflammatory disorders of scrotum Status: Acute Assessment and Plan: * s/p I & D (on 11/15/22) * local wound care * on antibiotics * DC with oral keflex. (2) Acute kidney injury: Code(s): N17.9 - Acute kidney failure, unspecified Status: Acute Assessment and Plan: * Appreciate Nephrology recommendations: * acute kidney injury. * Renal ultrasound okay * urine electrolytes non pre renal * suspicion falls on: * infection (possible mild ATN) * medications (Toradol + antibiotics) * contrast exposure (on 11/13/22) * blood pressure is up and down a bit. He is on clonidine once a day. Will change to amlodipine if okay with the patient. * volume status looks good * no critical electrolytes * continues to make urine * Creatinine is better again today. I think he can go home if okay with everybody else. * He should get a basic metabolic panel on Sunday or Sunday at Sara Faria's office (3) Hypertension: Code(s): I10 - Essential (primary) hypertension Status: Chronic Assessment and Plan: * blood pressure somewhat erratic ranging from 120-151 * clonidine held. Will add amlodipine. I tried calling the patient in the room and he did not answer so I let the nurse know to talk with him about it. Subjective Subjective Date/Time Seen: 11/19/22 11:47 Reports adeqauate pain control, SCr down trending, Dr. Hudson ok with DC. Culture has not yet finalized but report G+ cocci, will send home with keflex. Mrs. De La O is doing an excellent job with dressing changes. Exam Narrative: NAD, A&Ox3 RRR eWOB S/NT/ND incision healing with old packing present, good granulation tissue,. Objective Data Vital Signs Vital Signs: Vital Signs - 24 hr 11/18/22 14:00 11/18/22 21:49 11/18/22 20:00 Temperature 97.5 F L 97.9 F Pulse Rate 72 72 65 Respiratory Rate 16 15 16 Blood Pressure 136/81 150/97 H Pulse Oximetry 99 98 99 Oxygen Delivery Autopap 11/19/22 05:33 11/19/22 08:00 Temperature 97.9 F Pulse Rate 68 Respiratory Rate 14 Blood Pressure 135/74 Pulse Oximetry 100 Oxygen Delivery Room Air Intake/Output Intake/Output: Intake & Output 11/16/22 11/17/22 11/18/22 11/19/22 23:59 23:59 23:59 23:59 Intake Total 2220 2160 1860 2530 Output Total 300 1600 1500 Balance 2220 1085 884 8274 Meds/Results Medications: Active Medications Generic Name Dose Route Start Last Admin Trade Name Freq PRN Reason Stop Dose Admin Acetaminophen 650 mg 11/13/22 09:06 11/14/22 14:04 Acetaminophen 325 Mg Tablet PO 650 mg Q4H PRN Administration Headache Hydrocodone Bitart/Acetaminophen 1 tab 11/13/22 12:45 11/19/22 06:54 Hydrocodone/Acetaminophen (*Crx) 5-325 Mg Tablet PO 1 tab Q4H PRN Administration Pain Rated 4-6 Amlodipine Besylate 2.5 mg 11/19/22 09:55 11/19/22 10:39 Amlodipine Besylate 2.5 Mg Tablet PO 2.5 mg QAM JANE Administration Hydromorphone HCl 1 mg 11/15/22 08:54 11/15/22 15:03
--- NOTE | 2022-11-19 11:47 | WPDUROPN2 ---
Progress Note: A&P Assessment and Plan (1) Abscess of scrotal wall: Code(s): N49.2 - Inflammatory disorders of scrotum Status: Acute Assessment and Plan: s/p I & D (on 11/15/22) local wound care on antibiotics DC with oral keflex. (2) Acute kidney injury: Code(s): N17.9 - Acute kidney failure, unspecified Status: Acute Assessment and Plan: Appreciate Nephrology recommendations: acute kidney injury. Renal ultrasound okay urine electrolytes non pre renal suspicion falls on: infection (possible mild ATN) medications (Toradol + antibiotics) contrast exposure (on 11/13/22) blood pressure is up and down a bit. He is on clonidine once a day. Will change to amlodipine if okay with the patient. volume status looks good no critical electrolytes continues to make urine Creatinine is better again today. I think he can go home if okay with everybody else. He should get a basic metabolic panel on Sunday or Sunday at Sara Faria's office (3) Hypertension: Code(s): I10 - Essential (primary) hypertension Status: Chronic Assessment and Plan: blood pressure somewhat erratic ranging from 120-151 clonidine held. Will add amlodipine. I tried calling the patient in the room and he did not answer so I let the nurse know to talk with him about it. Subjective Subjective Date/Time Seen: 11/19/22 11:47 Reports adeqauate pain control, SCr down trending, Dr. Hudson ok with DC. Culture has not yet finalized but report G+ cocci, will send home with keflex. Mrs. De La O is doing an excellent job with dressing changes. Exam Narrative: NAD, A&Ox3 RRR eWOB S/NT/ND incision healing with old packing present, good granulation tissue,. Objective Data Vital Signs Vital Signs: Vital Signs - 24 hr 11/18/22 14:00 11/18/22 21:49 11/18/22 20:00 Temperature 97.5 F L 97.9 F Pulse Rate 72 72 65 Respiratory Rate 16 15 16 Blood Pressure 136/81 150/97 H Pulse Oximetry 99 98 99 Oxygen Delivery Autopap 11/19/22 05:33 11/19/22 08:00 Temperature 97.9 F Pulse Rate 68 Respiratory Rate 14 Blood Pressure 135/74 Pulse Oximetry 100 Oxygen Delivery Room Air Intake/Output Intake/Output: Intake & Output 11/16/22 11/17/22 11/18/22 11/19/22 23:59 23:59 23:59 23:59 Intake Total 2220 2160 1860 2530 Output Total 300 1600 1500 Balance 2220 0125 359 7406 Meds/Results Medications: Active Medications Generic Name Dose Route Start Last Admin Trade Name Freq PRN Reason Stop Dose Admin Acetaminophen 650 mg 11/13/22 09:06 11/14/22 14:04 Acetaminophen 325 Mg Tablet PO 650 mg Q4H PRN Administration Headache Hydrocodone Bitart/Acetaminophen 1 tab 11/13/22 12:45 11/19/22 06:54 Hydrocodone/Acetaminophen (*Crx) 5-325 Mg Tablet PO 1 tab Q4H PRN Administration Pain Rated 4-6 Amlodipine Besylate 2.5 mg 11/19/22 09:55 11/19/22 10:39 Amlodipine Besylate 2.5 Mg Tablet PO 2.5 mg QAM JANE Administration Hydromorphone HCl 1 mg 11/15/22 08:54 11/15/22 15:03 Hydromorphone Hcl Inj (*Crx) 1 Mg/Ml Syr IV PUSH 1 mg Q3H PRN Administration Pain Rated 7-10 Ceftriaxone Sodium 1 gm in 50 mls @ 100 mls/hr 11/13/22 10:00 11/19/22 08:40 Rocephin 1 Gm/Ns 50 Ml IVPB Infused Q24H JANE Infusion Doxycycline Hyclate 100 mg in 100 mls @ 100 mls/hr 11/16/22 21:00 11/19/22 09:10 Vibramycin 100 Mg/Ns 100 Ml IVPB Infused Q12H JANE Infusion Sertraline HCl 100 mg 11/16/22 14:59 11/19/22 08:10 Sertraline Hcl 50 Mg Tablet PO 100 mg DAILY JANE Administration Silver Nitrate 1 each 11/16/22 09:00 11/19/22 08:11 Aquacel Ag Advantage Bandage (*Bkc) TOPICAL 1 each DAILY JANE Administration Zolpidem Tartrate 10 mg 11/14/22 20:58 11/18/22 21:25 Zolpidem Tartrate (*Crx) 5 Mg Tablet PO 10 mg HS PRN Administration Insomnia Radiology Results: ITS Impressio
--- NOTE | 2022-11-22 07:37 | PM.DS ---
DS: Admitting Diagnosis Discharge Date 11/19/22 Admitting Diagnosis scrotal abscess DS: Discharge Diagnosis Discharge Diagnosis Plan Continue Antibiotics, wound care, follow up with Dr. Obando later this week. DS: Summary Hospital Course Reason for hospitalization: scrotal abscess after vasectomy Hospital Course: Patient underwent I&D. Found to have ASTER, treated with IVF, Creatinine improved, discharged after clearance by nephrology. Status at Discharge Cognitive/behavioral status at discharge: Good Time Spent with Patient Time attestation: Total time spent providing and/or coordinating discharge services: Exam Narrative: see day of discharge progress note. DS: Data Data Completed and Pending Labs on day of discharge: Preliminary micro results at discharge 11/15/22 17:30 Anaerobic Culture - Preliminary Abscess Peptostreptococcus species Porphyromonas species Discharge Plan Discharge Attending physician on discharge: Zach Garcia Consulting providers: Manju Downs; Marcelo Latham; Marisol Cabrera; Yomi Lubin; Prudencio Obando; Dylan Mccullough; Richmond Hudson; Dashawn Byrd Discharging Clinician: Zach Garcia Anticipated Discharge Date/Time: 11/19/22 11:44 Patient Disposition: Home, Self-Care Activity: november shower Diet: as tolerated Wound Care Instructions: change dressing daily Discharge Instructions: Daily or twice daily dressing changes, follow up with Dr. Obando this week. BMP sunday or sunday at Sara Faria's office. Patient Instructions: Antibiotic Form, Sleep Apnea (GEN), How to Stop Smoking (DC), CPAP (GEN), Scrotal Pain (GEN) Stand Alone Forms: General Discharge Information, Work/School Release IP Follow-up/Referrals: Prudencio Obando MD [Physician] - 1 Week Discharge Medications: New cephalexin 500 mg capsule 500 mg PO Q8H 10 Days Qty: 30 0RF amlodipine 2.5 mg tablet 2.5 mg PO DAILY Qty: 30 0RF Continued sertraline 100 mg tablet 100 mg PO DAILY omeprazole 40 mg capsule,delayed release(DR/EC) 40 mg PO DAILY Discontinued clonidine HCl 0.1 mg tablet 0.1 mg PO DAILY Date of admission: 11/14/22 15:56 Primary Care Provider: Tigre,Sara Admitting Provider: Rai Crum Attending physician on admission: Zach Garcia Condition: Stable
[2022-11-22 15:23] LABS: Chloride Rand Ur 23 mmol/L (32-290); Chloride/Creatinine Rand Ur 32 (23-275); Creatinine Random Urine 73 mg/dL (20-320)
== END 2022-11-19 12:25 | disposition home or self-care (01) | DRG 863 ==
LOC: ANHED 06:54 → ANH3MEDSUR 07:54
PROVIDERS: Internal Medicine Nephrology; Nurse Practitioner Adult Health; Urology; Admitting Provider Urology; Emergency Provider Emergency Medicine; PCP Physician Assistant; Visit Provider Urology
PROC: 0V953ZX Drainage of Scrotum, Percutaneous Approach, Diagnostic (ICD-10-PCS; CPT 54700; principal; 2022-11-15 17:00)
DX: T81.49XA Infection following a procedure, other surgical site, initial encounter (principal); N17.9 Acute kidney failure, unspecified; N45.3 Epididymo-orchitis; F41.9 Anxiety disorder, unspecified; K21.9 Gastro-esophageal reflux disease without esophagitis; F17.210 Nicotine dependence, cigarettes, uncomplicated; I10 Essential (primary) hypertension; B95.4 Other streptococcus as the cause of diseases classified elsewhere
CPT/HCPCS: 36415; 72193; 76775; 76870; 80048; 80069; 80202; 81001; 81050; 82436; 82550; 82565; 82570; 84156; 84300; 84540; 85025; 85027; 85999; 87040; 87070; 87075; 87076; 87205; 93976; 96361; 96365; 96366; 96367; 96375; 96376; 99285; A9270; G0378; J0690; J0696; J1170; J1885; J2250; J2405; J2543; J2704; J3010; J3370; J7030; J7120; Q9967

== ENCOUNTER → 2023-05-08 13:38 | Outpatient (CLI) | payer BC, SELFPAY ==
--- NOTE | ~2023-05-08 | US_ITS ---
EXAMINATION: US soft tissue LE LT INDICATION: Synovial cyst of the left popliteal space TECHNIQUE: Targeted ultrasound is performed in the area of clinical concern. COMPARISON: None available FINDINGS: There is an approximately 5.9 x 1.6 x 2.4 cm cystic area in the left posterior knee/poplite al fossa corresponding to the area of clinical concern. No abnormal associated vascularity or nodular ity are identified. IMPRESSION: 1. Findings consistent with left Taylor's cyst. Reviewed, dictated and finalized at location F.
== END ==
PROVIDERS: PCP Physician Assistant; Visit Provider Physician Assistant
DX: M71.22 Synovial cyst of popliteal space [Baker], left knee (principal)
CPT/HCPCS: 76882

== ENCOUNTER 2024-02-01 14:14 | Emergency (ER) | payer BC, SELFPAY ==
--- NOTE | ~2024-02-01 | US_ITS ---
COMPLETE ABDOMINAL ULTRASOUND Ordering provider: Lena Delarosa PA-C History: . RUQ abd pain . Comparison: None. FINDINGS: LIVER: Fat infiltration. The liver measures 18.9 CNM. No focal hepatic lesions or perihepatic fluid c ollections are identified. Flow of portal vein is normal. GALLBLADDER: Unremarkable. No evidence for stones, sludge, gallbladder wall thickening or pericholecy stic fluid collections. The wall of the gallbladder is 1.5 cm. A negative sonographic Chong's sign w as noted. BILIARY DUCTS: No evidence for intra or extrahepatic biliary dilation. Common bile duct measures 2.5 mm in diameter which is within normal limits. PANCREAS: Normal visualized portion. IMPRESSION: Fat infiltration of the liver with mild hepatomegaly otherwise, Unremarkable complete ultrasound of t he abdomen. Reviewed, dictated and finalized at location A. IMPRESSION: Fat infiltration of the liver with mild hepatomegaly otherwise, Unremarkable co mplete ultrasound of the abdomen.
--- NOTE | ~2024-02-01 | CT_ITS ---
CT abdomen pelvis w con Ordering provider: Cinthia Guo History: . abd pain . Comparison: None. Technique: CT abdomen with IV and without oral contrast. Radiation reduction technique utilized. DLP is 439.24 mGy. 100 mL Omnipaque 350 was given IV. Findings: VISUALIZED LOWER CHEST: Normal. 4 mm nodule in the middle lobe is noted. UPPER ABDOMINAL ORGANS: Liver: Mild fat infiltration. Mild hepatomegaly. Gallbladder: Normal. Spleen: Normal. Stomach/duodenum: Normal. Pancreas: Normal. Adrenals: Normal. Kidneys: Normal. Urinary bladder: Slightly thickened wall. Evaluation for cystitis advised. VISUALIZED BOWEL AND MESENTERY: No evidence of diverticulitis. Fecal material is loaded in the colon suggestive of constipation. Normal appendix. The bowel is otherwise normal. No free air or free fluid . No mesenteric lymphadenopathy. RETROPERITONEUM: Mild atheromatous disease of the abdominal aorta. No retroperitoneal lymphadenopathy . Left retroaortic renal vein. MUSCULOSKELETAL: Small fat-containing umbilical hernia. Otherwise, The superficial soft tissues are n ormal. Age appropriate degenerative changes of the spine. Bilateral sacroiliacs. IMPRESSION: No acute abdominal process with no evidence of appendicitis, diverticulitis or intestinal obstruction . Hepatomegaly with fat infiltration Constipation Slight thickening of the wall of the urinary bladder. Clinical correlation advised. 4 mm nodule in the right middle lobe. 12 months follow-up advised. Reviewed, dictated and finalized at location A. IMPRESSION: No acute abdominal process with no evidence of appendicitis, diverticulitis or intestinal obstruction. Hepatomegaly with fat infiltration Constipation Slight thickening of the wall of the urinary bladder. Clinical correlation advi sed. 4 mm nodule in the right middle lobe. 12 months follow-up advised.
--- NOTE | ~2024-02-01 | XR_ITS ---
XR chest 2V Ordering provider: Lena Delarosa PA-C History: 38 years Male with . RUQ abd pain . Comparison: None. FINDINGS: MEDIASTINUM: The cardiac silhouette is not enlarged. LUNGS: No infiltrates, effusions or pneumothorax. OTHER: No free air under the diaphragm. IMPRESSION: No acute cardiopulmonary pathology. Reviewed, dictated and finalized at location A.
[2024-02-01 14:35] VITALS: BP 151/95; PULSE 77; RESP 16; TEMP 36.4; O2SAT 98
[2024-02-01 15:22] LABS: Alanine Aminotransferase 59 U/L (6-50); Albumin Level 4.6 g/dL (3.5-5.1); Alkaline Phosphatase 151 U/L (38-126); Anion Gap 10 mmol/L (4-12); Aspartate Amino Transferase 76 U/L (17-59); Bilirubin,Total 0.5 mg/dL (0.2-1.3); Blood Urea Nitrogen 8 mg/dL (9-20); Calcium 9.3 mg/dL (8.4-10.2); Carbon Dioxide 26 mmol/L (22-30); Chloride 103 mmol/L (98-107); Estimated CRCL calculation 120 ml/min; Estimated Glomerular Filt Rate > 60; Glucose 99 mg/dL (65-110); Lipase 322 U/L (23-300); Potassium 4.1 mmol/L (3.4-5.0); Sodium 139 mmol/L (137-145)
[2024-02-01 15:31] LABS: Appearance Urine Clear (Clear); Bacteria Urine None Seen /hpf; Bilirubin Urine Negative (Negative); Blood Urine Negative (Negative); Color Urine Dark Yellow (Yellow); Glucose Urine UA Negative (Negative); Ketones Urine Negative (Negative); Leukocyte Esterase Ur Negative LEU/UL (Negative); Nitrate Urine Negative (Negative); Non Pathogenic Casts 0-2; Protein Urine Trace mg/dL (Negative); RBC Urine 0-2 /hpf (0-2); Specific Grav Ur 1.022 (1.001-1.035); Squamous Epithelial Cell Urine None Seen /hpf (Few); Urobilinogen Urine 0.2 mg/dL (<2.0); WBC Urine 0-5 /hpf (0-3)
[2024-02-01 15:33] LABS: Add Urine Microscopic? YES
[2024-02-01 16:08] LABS: Basophils Absolute Auto 0.1 K/mm3 (0.0-0.1); Basophils Percent Auto 0.7 % (0.2-1.2); Eosinophils Absolute Auto 0.2 K/mm3 (0-0.3); Eosinophils Percent Auto 2.1 % (0-4.4); Hematocrit 37.4 % (42.0-52.0); Immature Granulocyte Absolute 0.05 K/mm3 (0.00-0.031); Immature Granulocyte Percent A 0.6 % (0-0.5); Lymphocytes Absolute Auto 1.84 K/mm3 (0.9-3.2); Lymphocytes Percent Auto 20.8 % (18.3-44.2); Mean Corpuscular HGB Conc 34.8 g/dl (32-36); Mean Corpuscular Hemoglobin 33.3 pg (26-34); Mean Corpuscular Volume 95.9 fl (80-100); Mean Platelet Volume 9.7 fl (7.4-10.4); Monocytes Absolute Auto 0.6 K/mm3 (0.1-0.6); Neutrophils Absolute Auto 6.1 K/mm3 (1.3-6.7); Neutrophils Percent Auto 68.8 % (45.5-73.1); Platelet Count Result 280 k/mm3 (150-375); White Blood Count 8.8 K/mm3 (4.5-10.0)
[2024-02-01 17:11] VITALS: BP 152/103; PULSE 75; RESP 16; O2SAT 95
--- NOTE | 2024-02-01 17:34 | ED.ABDPAIN ---
HPI - Abdominal Pain General Chief Complaint: Abdominal Pain Stated Complaint: R sided abd pain Time Seen by Provider: 02/01/24 16:59 History of Present Illness HPI narrative: 38-year-old male presents to the emergency department for epigastric and right upper quadrant abdominal pain for the past couple of days. He denies aggravating or alleviating factors. Denies fever, nausea or vomiting, diarrhea, dysuria or hematuria. Denies prior abdominal surgeries or medical history. He is also endorsing and intermittent cough. Admits to drinking approximately 6 beers per day for the past few years. His last drink was around 2:00 p.m. this afternoon. Also admits to smoking daily. Related Data Home Medications Medication Instructions Recorded Confirmed omeprazole 40 mg capsule,delayed 40 mg PO DAILY 05/10/22 11/13/22 release sertraline 100 mg tablet 100 mg PO DAILY 05/22/22 11/13/22 Allergies Allergy/AdvReac Type Severity Reaction Status Date / Time No Known Allergies Allergy Verified 11/15/22 16:47 Review of Systems Review of Systems: CONSTITUTIONAL: Denies fever, chills, or sweats. EYES: Denies visual changes, redness, or discharge. ENT: Denies rhinorrhea, congestion, sore throat, or otalgia. CARDIOVASCULAR: Denies chest pain, palpitations, or edema. RESPIRATORY: Denies cough or dyspnea. GASTROINTESTINAL: See HPI GENITOURINARY: Denies dysuria or hematuria. SKIN: Denies rash or itching. MUSCULOSKELETAL: Denies back pain, joint pain, or myalgia. NEUROLOGIC: Denies headache, numbness, or weakness. PSYCHIATRIC: Denies anxiety or depression. [facility] Past Medical History Medical History Acute nonintractable headache Acute right-sided low back pain with right-sided sciatica Allergy to bee sting Anxiety Dermatitis Erythema of skin Gastroesophageal reflux disease without esophagitis Glucosuria Hypertension Hypogonadism male Memory changes Mood changes JOVANI (obstructive sleep apnea) Poison sylvia Sinusitis Tobacco abuse Urinary frequency Word finding difficulty Surgical History Surgical History H/O wisdom tooth extraction History of tonsillectomy and adenoidectomy 1990's Lymph nodes enlarged Family History Family History Mother Hypertension Grandparent Hypertension Social History Social History Smoking packs per day: 2 Smoking cigarettes per day: 40.0 Years smoked: 15 Smoking pack-years: 30.00 Smoking status: Current every day smoker Tobacco type: cigarettes Second hand tobacco smoke exposure: Yes Alcohol intake: current Drinks per week: 20 Substance use: current Substance use type: marijuana Lack of Transportation: No Lack of Food: Never True Current Housing: I Have Housing Concerned About Future Housing: No Difficulty Paying Gas/Electric Bills: No Difficulty Paying for Meds: No Currently Unemployed: No Education: High School Diploma/GED Difficulty w/ Childcare or Family Care: No Living arrangements: with family Additional living arrangements comments: has two dogs Occupation/Education: occupation Additional occupation/education comments: [employer] Gender identity (if verbalized by the patient): Male Spiritual care concerns: No Agree to blood products: No Exam Narrative: GENERAL: Well-appearing, well-nourished, and in no acute distress. HEAD: Normocephalic, atraumatic. EYES: PERRLA and EOMI. ENT: Nares clear, no rhinorrhea or epistaxis. Mucous membranes moist. NECK: Supple. CHEST: rhonchi in the left lung doran and expiratory wheezing in the right lower lung field. No rales. Satting 95% on room air in no respiratory distress HEART: Regular rate and rhythm. No murmur heard. Normal p
[2024-02-01] MEDS: IPRATROPIUM 0.5 MG/ALBUTEROL SULFATE 2.5 MG AMPUL.NEB 3 ML INHALATION (17:44)
[2024-02-01 17:45] VITALS: PULSE 76; RESP 16
[2024-02-01 17:53] VITALS: PULSE 85; RESP 16
[2024-02-01] MEDS: FAMOTIDINE 20 MG/2 ML VIAL IV PUSH (18:05)
[2024-02-01] MEDS: BELLADONNA ALK/PHENOB ELIX 10 ML, MAG HYDROX/ALUMINUM HYD/SIMETH 30 ML, LIDOCAINE HCL 2... PO (18:05)
[2024-02-01 18:17] LABS: Influenza A QL RT-PCR Negative (Negative); Influenza B QL RT-PCR Negative (Negative); SARS-CoV-2 RNA PCR Negative (Negative)
== END 2024-02-01 21:49 | disposition home or self-care (01) ==
PROVIDERS: Nurse Practitioner Family; Emergency Provider Physician Assistant; PCP Physician Assistant
DX: R10.13 Epigastric pain (principal); R10.11 Right upper quadrant pain; R06.2 Wheezing; R91.1 Solitary pulmonary nodule; K59.00 Constipation, unspecified; K76.0 Fatty (change of) liver, not elsewhere classified; F10.10 Alcohol abuse, uncomplicated; I10 Essential (primary) hypertension; K21.9 Gastro-esophageal reflux disease without esophagitis; G47.33 Obstructive sleep apnea (adult) (pediatric); F17.210 Nicotine dependence, cigarettes, uncomplicated
CPT/HCPCS: 36415; 71046; 74177; 76705; 80053; 81001; 83690; 85025; 87636; 94640; 96374; 99284; A9270; Q9967

== ENCOUNTER 2024-02-15 07:32 | Outpatient (CLI) | payer BC, SELFPAY ==
--- NOTE | ~2024-02-15 | US_ITS ---
Abdominal Sonogram: Real-time sonographic imaging of the abdomen was performed. Clinical History: Abdominal pain Findings: The liver appears echogenic, with no evidence of mass lesion or bile duct dilatation. Main portal vein demonstrates normal direction of flow. The spleen is normal in size without evidence of focal lesion. The gallbladder is well distended, and appears normal with no evidence of gallstone or wall thickening. The common bile duct measures 7 mm. The visualized pancreas, aorta, and IVC are un remarkable. The right kidney measures 12.4 cm in length and the left kidney measures 11.5 cm. There is no hydronephrosis or renal calculus. Impression: Diffuse fatty infiltration of the liver. Reviewed, dictated and finalized at location M. Impression: Diffuse fatty infiltration of the liver.
== END 2024-02-15 07:33 | disposition home or self-care (01) ==
PROVIDERS: PCP Physician Assistant; Visit Provider Physician Assistant
DX: R10.10 Upper abdominal pain, unspecified (principal); K76.0 Fatty (change of) liver, not elsewhere classified
CPT/HCPCS: 76700

== ENCOUNTER 2024-04-02 12:52 | Outpatient (CLI) | payer BC, SELFPAY ==
--- NOTE | ~2024-04-02 | XR_ITS ---
EXAMINATION: XR ribs LT 2V w CXR 2V DATE: 04/02/2024 13:15 INDICATION: Chest pain. TECHNIQUE: Frontal and lateral views of the chest and 2 views on 3 radiographs of the left ribs were obtained. COMPARISON: chest two views 02/01/24, CT abdomen and pelvis 02/01/2024 FINDINGS: CHEST TWO VIEWS: There is no pneumonia, pleural effusion, or pneumothorax. The heart size is normal. LEFT RIBS: There is no rib fracture. IMPRESSION: 1. No rib fracture. Reviewed, dictated and finalized at location A. IMPRESSION: 1. No rib fracture.
== END 2024-04-02 12:53 | disposition home or self-care (01) ==
PROVIDERS: PCP Physician Assistant; Visit Provider Physician Assistant
DX: R07.81 Pleurodynia (principal)
CPT/HCPCS: 71046; 71100

== ENCOUNTER 2024-04-03 09:38 | Emergency (ER) | payer BC, SELFPAY ==
--- NOTE | ~2024-04-03 | CT_ITS ---
EXAMINATION: CT abdomen pelvis w con DATE: 04/03/2024 12:41 INDICATION: Left flank tenderness. Assess for nephrolithiasis. TECHNIQUE: Computed tomography (CT) of the abdomen and pelvis was performed without intravenous contr ast. Automated exposure control and iterative reconstruction technique were employed. The dose-length product was 467.47 mGy-cm. COMPARISON: 02/01/2024 FINDINGS: Unchanged 4 mm right middle lobe nodule. Lung bases are otherwise clear. Heart size is normal. No per icardial or pleural effusion. Liver, gallbladder, spleen, pancreas, bilateral adrenal glands and kidn eys are normal. There are few punctate foci of increased density at the bilateral kidneys which could represent <2 mm renal stones however specificity is decreased by the presence of intravenous contras t. No ureteral stones or hydronephrosis. Bladder is normal. There is mild colonic diverticulosis with a sigmoid predominance. There is no adjacent inflammatory change to suggest diverticulitis. Small bowel and appendix are normal. Negative amount of free fluid in the deep pelvis. No abscess or free i ntraperitoneal gas. No pathologically enlarged abdominal or pelvic lymphadenopathy. Chronic mild ante rior wedging at T11. Moderate spondylosis at L5-S1 with mild spondylosis of the more cephalad lumbar and lower thoracic spine. IMPRESSION: 1. Negligible amount of nonspecific free fluid in the deep pelvis. No other acute intra-abdominal/pel hanna process. 2. A few punctate densities at the bilateral kidneys potentially representing <2 mm renal stones henning milly specificity is decreased by the presence of intravenous contrast. No ureteral stones or hydroneph rosis. 3. Mild diverticulosis. Reviewed, dictated and finalized at location A. IMPRESSION: 1. Negligible amount of nonspecific free fluid in the deep pelvis. No other acu te intra-abdominal/pelvic process. 2. A few punctate densities at the bilateral kidneys potentially representing < 2 mm renal stones however specificity is decreased by the presence of intraveno us contrast. No ureteral stones or hydronephrosis. 3. Mild diverticulosis.
[2024-04-03 09:57] VITALS: BP 152/93; PULSE 70; RESP 16; TEMP 36.6
--- NOTE | 2024-04-03 10:47 | ED.ABDPAIN ---
HPI - Abdominal Pain General Chief Complaint: Abdominal Pain <MARK Rodrigues Last Filed: 04/03/24 15:13> Stated Complaint: left side pain <MARK Rodriuges Last Filed: 04/03/24 15:13> Time Seen by Provider: 04/03/24 10:38 <MARK Rodrigues Last Filed: 04/03/24 15:13> Source: patient <MARK Rodrigues Last Filed: 04/03/24 15:13> Mode of arrival: ambulatory <MARK Rodrigues Last Filed: 04/03/24 15:13> Limitations: no limitations <MARK Rodrigues Last Filed: 04/03/24 15:13> History of Present Illness HPI narrative: this is a 38-year-old male who presents to the ED for chief complaint of left-sided abdominal and flank pain for the past week. States it has been intermittently getting worse. Reports he had x-rays through PCP yesterday. Denies urinary symptoms. Endorses nausea, vomiting and couple episodes of diarrhea. Denies back pain chest pain, cough, shortness of breath. 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 He has been climbing up and cutting down trees which he states could be causing his pain as well. <MARK Rodrigues Last Filed: 04/03/24 15:13> Related Data Home Medications: Home Medications Medication Instructions Recorded Confirmed omeprazole 40 mg capsule,delayed 40 mg PO DAILY 05/10/22 03/20/24 release sertraline 100 mg tablet 100 mg PO DAILY 05/22/22 03/20/24 <MARK Rodrigues Last Filed: 04/03/24 15:13> Allergies/Adverse Reactions: Allergies Allergy/AdvReac Type Severity Reaction Status Date / Time bee venom protein (honey bee) Allergy Hives Verified 03/20/24 13:36 [bees] <MARK Rodrigues Last Filed: 04/03/24 15:13> Review of Systems Review of Systems: All systems as dictated in HPI <MARK Rodrigues Last Filed: 04/03/24 15:13> [facility], LAT[facility] Past Medical History Medical History: Medical History Acute nonintractable headache Acute right-sided low back pain with right-sided sciatica Allergy to bee sting Anxiety Dermatitis Erythema of skin Gastroesophageal reflux disease without esophagitis Glucosuria Hypertension Hypogonadism male Memory changes Mood changes JOVANI (obstructive sleep apnea) Poison sylvia Sinusitis Tobacco abuse Urinary frequency Word finding difficulty <Jh Santos PA-C - Last Filed: 04/03/24 15:13> Surgical History Surgical History: Surgical History H/O wisdom tooth extraction History of tonsillectomy and adenoidectomy Lymph nodes enlarged <Jh Santos PA-C - Last Filed: 04/03/24 15:13> Family History Family History: Family History Mother Hypertension Grandparent Hypertension <Jh Santos PA-C - Last Filed: 04/03/24 15:13> Social History Social History: Social History Smoking packs per day: 2 Smoking cigarettes per day: 40.0 Years smoked: 15 Smoking pack-years: 30.00 Smoking status: Current every day smoker Tobacco type: cigarettes Second hand tobacco smoke exposure: Yes Alcohol intake: current Drinks per week: 12 Substance use: current Substance use type: marijuana Lack of Transportation: No Lack of Food: Never True Current Housing: I Have Housing Concerned About Future Housing: No Difficulty Paying Gas/Electric Bills: No Difficulty Paying for Meds: No Currently Unemployed: No Education: High School Diploma/GED Difficulty w/ Childcare or Family Care: No Living arrangements: with family Additional living arrangements comments: has two dogs Occupation/Education: occupation Additional occupation/education comments: [employer] Gender identity (if verbalized by the patient): Mal
[2024-04-03 11:35] VITALS: BP 162/96; PULSE 98; RESP 18; O2SAT 98
[2024-04-03] MEDS: HYDROmorphone HCL INJ (*CRX) 1 MG/ML SYR 0.5 MG IV PUSH (11:36)
[2024-04-03] MEDS: ONDANSETRON INJ 4 MG/2 ML VIAL IV PUSH (11:38)
[2024-04-03 11:43] LABS: Basophils Absolute Auto 0.1 K/mm3 (0.0-0.1); Basophils Percent Auto 1.1 % (0.2-1.2); Eosinophils Absolute Auto 0.2 K/mm3 (0-0.3); Eosinophils Percent Auto 1.9 % (0-4.4); Hematocrit 44.4 % (42.0-52.0); Hemoglobin 15.3 g/dL (14.0-18.0); Immature Granulocyte Absolute 0.04 K/mm3 (0.00-0.031); Immature Granulocyte Percent A 0.4 % (0-0.5); Lymphocytes Absolute Auto 1.56 K/mm3 (0.9-3.2); Mean Corpuscular HGB Conc 34.5 g/dl (32-36); Mean Corpuscular Hemoglobin 33.8 pg (26-34); Mean Platelet Volume 9.6 fl (7.4-10.4); Monocytes Absolute Auto 0.8 K/mm3 (0.1-0.6); Monocytes Percent Auto 7.7 % (2.6-8.5); Neutrophils Absolute Auto 7.1 K/mm3 (1.3-6.7); Neutrophils Percent Auto 72.9 % (45.5-73.1); Platelet Count Result 320 k/mm3 (150-375); Red Blood Count 4.53 M/mm3 (4.6-6.20); Red Cell Distribution Width 13.2 % (11.5-14.5); White Blood Count 9.8 K/mm3 (4.5-10.0)
[2024-04-03 12:13] LABS: Alanine Aminotransferase 100 U/L (6-50); Albumin Level 4.4 g/dL (3.5-5.1); Alkaline Phosphatase 238 U/L (38-126); Anion Gap 8 mmol/L (4-12); Aspartate Amino Transferase 105 U/L (17-59); Bilirubin,Total 0.5 mg/dL (0.2-1.3); Blood Urea Nitrogen 6 mg/dL (9-20); Calcium 9.5 mg/dL (8.4-10.2); Carbon Dioxide 32 mmol/L (22-30); Chloride 101 mmol/L (98-107); Estimated CRCL calculation 116 ml/min; Estimated Glomerular Filt Rate > 60; Glucose 96 mg/dL (65-110); Potassium 4.4 mmol/L (3.4-5.0); Sodium 141 mmol/L (137-145)
[2024-04-03 12:40] LABS: Add Urine Microscopic? YES; Appearance Urine Clear (Clear); Bacteria Urine None Seen /hpf; Bilirubin Urine Negative (Negative); Blood Urine Negative (Negative); Color Urine Yellow (Yellow); Glucose Urine UA Negative (Negative); Ketones Urine Negative (Negative); Leukocyte Esterase Ur Negative LEU/UL (Negative); Nitrate Urine Negative (Negative); Protein Urine Trace mg/dL (Negative); RBC Urine 0-2 /hpf (0-2); Squamous Epithelial Cell Urine None Seen /hpf (Few); WBC Urine 0-5 /hpf (0-3); pH Urine 7.5 (5.0-9.0)
[2024-04-03 14:00] VITALS: BP 158/96; PULSE 79; RESP 18; TEMP 36.1; O2SAT 79
== END 2024-04-03 14:22 | disposition home or self-care (01) ==
PROVIDERS: Emergency Provider Physician Assistant; PCP Physician Assistant
DX: N20.0 Calculus of kidney (principal); R10.32 Left lower quadrant pain; I10 Essential (primary) hypertension; G47.33 Obstructive sleep apnea (adult) (pediatric); F41.9 Anxiety disorder, unspecified; K21.9 Gastro-esophageal reflux disease without esophagitis; F17.210 Nicotine dependence, cigarettes, uncomplicated; F12.90 Cannabis use, unspecified, uncomplicated
CPT/HCPCS: 36415; 74177; 80053; 81001; 85025; 96374; 96375; 99284; J1010; J1170; J2405; Q9967

== ENCOUNTER 2024-04-11 02:09 | Day surgery (SDC) | payer BC, SELFPAY ==
[2024-03-20 13:47] VITALS: BMI 21.2
[2024-04-11 12:48] VITALS: BP 171/96; PULSE 64; RESP 18; TEMP 36.6; O2SAT 97
[2024-04-11] MEDS: LACTATED RINGERS 1,000 ML 150 ML IV CONT (13:47)
--- NOTE | 2024-04-11 14:00 | WPDANESEPPF ---
Anes - Initial Pre Proc Eval Procedure: Operation Date: 04/11/24 13:30 Proposed Procedures p Esophagogastroduodenoscopy & Colonoscopy - Melchor Abdi MD Date/Time: 04/11/24 14:00 Surgeon: Melchor Abdi MD Pre Op Diagnosis: GERD, Anemia, Upper abd. pain Patient Data Age: 38 Gender: M Height: 1.91 m Weight: 79.2 kg Last Vital Signs Temp 97.9 F 04/11/24 12:48 Pulse 64 04/11/24 12:48 Resp 18 04/11/24 12:48 BP 171/96 H 04/11/24 12:48 Pulse Ox 97 04/11/24 12:48 O2 Del Method Room Air 04/11/24 12:48 Allergies Allergy/AdvReac Type Severity Reaction Status Date / Time bee venom protein (honey bee) Allergy Hives Verified 04/11/24 12:46 [bees] Home Medications Medication Instructions Recorded Confirmed Type omeprazole 40 mg capsule,delayed 40 mg PO DAILY 05/10/22 04/11/24 History release sertraline 100 mg tablet 100 mg PO DAILY 05/22/22 04/11/24 History amlodipine 2.5 mg tablet 2.5 mg PO DAILY #30 tabs 11/19/22 04/11/24 Rx albuterol sulfate 90 mcg/actuation 1 inh inhalation QID PRN shortness 02/01/24 04/11/24 Rx aerosol inhaler of breath or wheezing #6.7 grams famotidine 20 mg tablet 20 mg PO DAILY #30 tabs 02/01/24 04/11/24 Rx hydrocodone 5 mg-acetaminophen 325 1 tablet PO Q8H PRN pain #10 tabs 04/03/24 04/11/24 Rx mg tablet ondansetron 4 mg disintegrating 4 mg PO Q8H PRN nausea and 04/03/24 04/11/24 Rx tablet vomiting #10 tabs tamsulosin 0.4 mg capsule (Flomax) 0.4 mg PO DAILY #10 caps 04/03/24 04/11/24 Rx Patient hx anesthesia problems: none Family hx anesthesia problems: none Results Review: All pre-operative results and documents have been reviewed as part of the pre-operative evaluation. [facility] Past Medical History Medical History (Updated 04/11/24 @ 14:36 by Melchor Abdi MD) Acute nonintractable headache Acute right-sided low back pain with right-sided sciatica Allergy to bee sting Anxiety Dermatitis Erythema of skin Gastroesophageal reflux disease without esophagitis Glucosuria Hypertension Hypogonadism male Memory changes Mood changes JOVANI (obstructive sleep apnea) Poison sylvia Sinusitis Tobacco abuse Urinary frequency Word finding difficulty Surgical History Surgical History H/O wisdom tooth extraction History of tonsillectomy and adenoidectomy Lymph nodes enlarged Family History Family History Mother Hypertension Grandparent Hypertension Social History Social History Smoking packs per day: 2 Smoking cigarettes per day: 40.0 Years smoked: 15 Smoking pack-years: 30.00 Smoking status: Current every day smoker Tobacco type: cigarettes Second hand tobacco smoke exposure: Yes Alcohol intake: current Drinks per week: 12 Substance use: current Substance use type: marijuana Lack of Transportation: No Lack of Food: Never True Current Housing: I Have Housing Concerned About Future Housing: No Difficulty Paying Gas/Electric Bills: No Difficulty Paying for Meds: No Currently Unemployed: No Education: High School Diploma/GED Difficulty w/ Childcare or Family Care: No Living arrangements: with family Additional living arrangements comments: has two dogs Occupation/Education: occupation Additional occupation/education comments: [employer] Gender identity (if verbalized by the patient): Male Spiritual care concerns: No Agree to blood products: No Anes - Eval Final PreProcedure Day of Procedure 04/11/24 14:00 Patient weight: normal Heart: regular rate and rhythm Lungs: clear to auscultation Airway: Mallampati scale Neurological: alert and oriented Last oral intake: >/= 8 hours ASA classification: III Emergent: no Anesthetic plan: proceed Anesth
--- NOTE | 2024-04-11 14:35 | PM.HPGS ---
History of Present Illness History of Present Illness Consent: Risks, benefits, and alternatives have been discussed and questions answered. Patient agrees to proceed with procedure. Chief complaint: GERD, Anemia, Upper abd. pain Narrative: Wisam De La O is a 38 year old male with gerd on ppi, also noted blood in stool. Had colonoscopy 2021 with polyp removed. Review of Systems Review of Systems: All systems reviewed & are unremarkable except as noted in HPI and below PMFSH Past Medical History Medical History (Updated 04/11/24 @ 14:36 by Melchor Abdi MD) Acute nonintractable headache Acute right-sided low back pain with right-sided sciatica Allergy to bee sting Anxiety Dermatitis Erythema of skin Gastroesophageal reflux disease without esophagitis Glucosuria Hypertension Hypogonadism male Memory changes Mood changes JOVANI (obstructive sleep apnea) Poison sylvia Sinusitis Tobacco abuse Urinary frequency Word finding difficulty Surgical History Surgical History H/O wisdom tooth extraction 1989' History of tonsillectomy and adenoidectomy 1989' Lymph nodes enlarged 1989' Family History Family History Mother Hypertension Grandparent Hypertension Social History Social History Smoking packs per day: 2 Smoking cigarettes per day: 40.0 Years smoked: 15 Smoking pack-years: 30.00 Smoking status: Current every day smoker Tobacco type: cigarettes Second hand tobacco smoke exposure: Yes Alcohol intake: current Drinks per week: 12 Substance use: current Substance use type: marijuana Lack of Transportation: No Lack of Food: Never True Current Housing: I Have Housing Concerned About Future Housing: No Difficulty Paying Gas/Electric Bills: No Difficulty Paying for Meds: No Currently Unemployed: No Education: High School Diploma/GED Difficulty w/ Childcare or Family Care: No Living arrangements: with family Additional living arrangements comments: has two dogs Occupation/Education: occupation Additional occupation/education comments: [employer] Gender identity (if verbalized by the patient): Male Spiritual care concerns: No Agree to blood products: No Meds Home Medications and Allergies Home Medications Medication Instructions Recorded Confirmed Type omeprazole 40 mg capsule,delayed 40 mg PO DAILY 05/10/22 04/11/24 History release sertraline 100 mg tablet 100 mg PO DAILY 05/22/22 04/11/24 History amlodipine 2.5 mg tablet 2.5 mg PO DAILY #30 tabs 11/19/22 04/11/24 Rx albuterol sulfate 90 mcg/actuation 1 inh inhalation QID PRN shortness 02/01/24 04/11/24 Rx aerosol inhaler of breath or wheezing #6.7 grams famotidine 20 mg tablet 20 mg PO DAILY #30 tabs 02/01/24 04/11/24 Rx hydrocodone 5 mg-acetaminophen 325 1 tablet PO Q8H PRN pain #10 tabs 04/03/24 04/11/24 Rx mg tablet ondansetron 4 mg disintegrating 4 mg PO Q8H PRN nausea and 04/03/24 04/11/24 Rx tablet vomiting #10 tabs tamsulosin 0.4 mg capsule (Flomax) 0.4 mg PO DAILY #10 caps 04/03/24 04/11/24 Rx Allergies Allergy/AdvReac Type Severity Reaction Status Date / Time bee venom protein (honey bee) Allergy Hives Verified 04/11/24 12:46 [bees] Vital Signs Vital Signs - 24 hr 04/11/24 12:48 Temperature 97.9 F Pulse Rate 64 Respiratory Rate 18 Blood Pressure 171/96 H Pulse Oximetry 97 Oxygen Delivery Room Air Exam Const: General: comfortable and no acute distress HENMT: Face/Nose/Sinus: Normal nares present Eyes: General: appearance normal, both eyes and all related structures Neck: Neck: no JVD Resp: Auscultation: clear to auscultation bilaterally Cardio: Rate: regular rate Rhythm: regular rhythm GI: Inspection: non-distended GI Palp: Yes Soft to palpation S
--- NOTE | 2024-04-11 14:38 | SUR.OPER ---
Patient has sore on lip prior to bite block.
--- NOTE | 2024-04-11 14:44 | SUR.OPER ---
EGD [id number]. Colon start time 1448.
[2024-04-11 15:00] VITALS: BP 121/80; PULSE 69; RESP 18; O2SAT 100
[2024-04-11 15:10] VITALS: BP 143/93; PULSE 68; RESP 20; O2SAT 98
[2024-04-11 15:20] VITALS: BP 169/98; PULSE 58; RESP 18; O2SAT 100
== END 2024-04-11 15:29 | disposition home or self-care (01) ==
PROVIDERS: PCP Physician Assistant; Visit Provider Internal Medicine Gastroenterology
PROC: 0DJ08ZZ Inspection of Upper Intestinal Tract, Via Natural or Artificial Opening Endoscopic (ICD-10-PCS; CPT 43235; principal; 2024-04-11 13:30)
DX: D12.5 Benign neoplasm of sigmoid colon (principal); K57.30 Diverticulosis of large intestine without perforation or abscess without bleeding; K64.8 Other hemorrhoids; K21.00 Gastro-esophageal reflux disease with esophagitis, without bleeding; D64.9 Anemia, unspecified; I10 Essential (primary) hypertension; G47.33 Obstructive sleep apnea (adult) (pediatric); F41.9 Anxiety disorder, unspecified; F17.210 Nicotine dependence, cigarettes, uncomplicated; F12.90 Cannabis use, unspecified, uncomplicated; Z79.51 Long term (current) use of inhaled steroids; Z79.891 Long term (current) use of opiate analgesic
CPT/HCPCS: 45385; 43239; 88305; J2704; J7120

== ENCOUNTER 2024-07-11 09:07 | Outpatient (CLI) | payer BC, SELFPAY ==
--- NOTE | ~2024-07-11 | CT_ITS ---
Non-contrast CT scan of the Abdomen and Pelvis Clinical indication: Kidney stone Technique: 2.5 mm axial scans were obtained through the abdomen and pelvis without intravenous or or al contrast. Dose reduction technique was used on this scan by utilizing automated exposure control a nd iterative reconstruction technique. The dose-length product (DLP) was 205.87 mGy-cm. COMPARISON: 04/03/2024 Findings: Images through the lung bases reveal no abnormalities. Punctate nonobstructing right renal stone present. No other stones identified. No ureteral stone or h ydronephrosis on either side. The liver, spleen, pancreas, gallbladder, and adrenals appear normal. There is no aortic aneurysm. There is no evidence of bowel obstruction. Images through the pelvis were performed. There is no evidence of ascites or lymphadenopathy. Urinary bladder unremarkable. No pelvic mass seen. Impression: Punctate nonobstructing right renal stone. Reviewed, dictated and finalized at [facility]. SKIMMER Impression: Punctate nonobstructing right renal stone.
== END 2024-07-11 09:08 | disposition home or self-care (01) ==
PROVIDERS: PCP Physician Assistant; Visit Provider Nurse Practitioner Family
DX: N20.0 Calculus of kidney (principal)
CPT/HCPCS: 74176

== ENCOUNTER 2024-08-20 08:08 | Outpatient (CLI) | payer BC, SELFPAY ==
--- NOTE | ~2024-08-20 | CT_ITS ---
EXAMINATION: CT soft tissue neck w con DATE: 08/20/2024 08:48 INDICATION: Enlarged lymph nodes TECHNIQUE: Computed tomography (CT) of the neck was performed with 75 mL Omnipaque-350 intravenous co ntrast. Automated exposure control and iterative reconstruction technique were employed. The dose-xavier gth product was 502.07 mGy-cm. COMPARISON: None FINDINGS: Orbits are normal. Mucous retention cyst in the left maxillary sinus. Mastoid air cells and middle ea r cavities are clear. The parotid glands are normal and symmetric. The right submandibular gland appe ars normal. The left submandibular gland is likely surgically absent with multiple surgical clips at the site of the absent left submandibular gland. Thyroid gland is unremarkable. There are scattered n ormal-sized lymph nodes in the neck, the largest lymph node located in the right posterior cervical t riangle measuring 8mm in maximal short axis diameter. No pathologically enlarged cervical lymphadenop athy or other abnormal masses identified. The vasculature is patent and normal in caliber. Airway is unremarkable. Superior mediastinum is unremarkable. Lung apices are normal. Mild cervical spondylos is. IMPRESSION: 1. No pathologically enlarged cervical lymphadenopathy or other abnormal masses or fluid collections in the neck or visualized portions of the head and upper chest. 2. Status post left submandibular gland resection. Reviewed, dictated and finalized at location A. KER OPERATOR
[2024-08-20 08:46] LABS: Estimated Glomerular Filt Rate > 60
--- OUTSIDE RECORDS SUMMARY | 2024-08-21 21:39 | XMS_ITS | Continuity of Care Document ---
Author Organization [facility] Address [address] [place] [address] Phone Care Team Providers Care Chairman And Ceo Name Role Phone Conversion MD, Doctor Unavailable Unavailabl e Medications Medication Instructions Dosage Effective Dates (start - stop) Status Comments ZYRTEC 10MG TABS 1 QD - Active EPIPEN 0.3MG SYRINGES 1 DIRECTE - A ctive Advance Directives Directive Yes / No Effective Date File Name No Information Encounters Encounter Description Practice Location Reason(s) For Visit Diagnoses Date Provider Providers Copied on Encounter [facility], [address], [place], [place], [id number], [place] tel:[phone] Conversion Department No Information 1 Conversion Doctor. [facility] [place], [address], . Family History Family Member Type Diagnosis Age At Onset No Information Payers Payer name Insurance type Covered alliance party ID Authoriza tion(s) No Information Social [...]
--- OUTSIDE RECORDS SUMMARY | 2024-08-21 21:39 | XMS_ITS | Patient Health Summary ---
Author Organization [facility] Address [address] [place] [address] Care Team Providers Care Transit Mechanic Name Role Phone Sara Maldonado Primary Care Pr ovider Note from [facility],non-owned Affiliates and Associated Physician Practices is amultiple site organization consisting of ambulatory clinics and hospital sitesin [place], [place], [place] and [place]. This disclosure is being madepursuant to the Care Everywhere program and may not contain all information available regarding this patient. Last updated 18.[facility] Allergies No known active allergies Medications * Be aware that medications may not be up to date on this document. Alwaysverify current medications with the patient. * sertraline (Zoloft) 100 MG tablet(Started 04/19/2023) Take 1 (one) tablet by mouth once daily * fluticasone propionate (Flonase) 50 MCG/ACT nasal spray(Started 06/07/2023) Union 2 (two) sprays into each nostril once daily 4 refills by 06/06/2024 * azelastine (Astelin) 0.1 % nasal spray(Started 06/07/2023) Union 1 (one) spray to 2 (two) sprays into each nostril 2 times daily Aim tip of spray bottle towards the SAME EYE as the nostril you are spraying in (e.g. when spraying into the left nostril, aim ittowards the left eye) 3 refills by 06/06/2024 Active Problems No known active problems Social History Tobacco Use Types Packs/Day Years Used Date Smoking Tobacco: Every Day Cigarettes 1.5 15 Passive Smoke Exposure: Current Smokeless Tobacco: Former Chew Alcohol Use Standard Drinks/Week Comments Yes 0 (1 standard drink = 0.6 oz pur e alcohol) Sex and Gender Information Value Date Recorded Sex Assigned at Not on file Gender Identity Not on file Sexual Orientation Not on file Last Filed Vital Signs Vital Sign Reading Time Taken Comments Blood Pressure 165/100 06/07/2023 3:12 PM REVERSE UNIT OPERATOR Pulse 82 06/07/2023 3:12 PM REVERSE UNIT OPERATOR Temperature - - Respiratory Rate - - Oxygen Saturation 94% 05/17/2023 9:00 AM CDT Inhaled Oxygen Concentration - - Weight 79.4 kg (175 lb) 06/07/2023 3:12 PM REVERSE UNIT OPERATOR Height 190.5 cm (6' 3 ) 06/07/2023 3:12 PM REVERSE UNIT OPERATOR Body Mass Index 21.87 06/07/2023 3:12 PM REVERSE UNIT OPERATOR Procedures * CT UPPER EXT LEFT WO CONTRAST(Performed 01/28/2014) Performed for Scaphoid fracture, wrist, closed, left, with routine healing, subsequent encounter * CT UPPER EXT LEFT WO CONTRAST(Performed 10/22/2013) Performed for Scaphoid fracture of wrist, Wrist pain Results * CT UPPER EXTREMITY WO CONTRAST LEFT (01/28/2014 12:38 PM CDT) Only the most recent of2 resultswithin the time period is included. Anatomical Region Laterality Modality Upper Extremity Computed Tomogra phy 01/28/2014 1:35 PM CDT Impressions 01/28/2014 2:01 PM CDT Stable-appearing scaphoid fractures (distal half of the bone including the waist of the scaphoid going across the midshaft and along the radial aspect of the bone of the distal pole). Anatomic alignment. No complicating features. No convincing evidence of AVN. Narrative 01/28/2014 2:[address] SCAN OF LEFT WRIST: (01/28/2014) CLINICAL HISTORY: Followup of scaphoid fracture. COMPARISON: 10/22/2013. Multiple axial images of CT scan of left wrist were obtained. In addition to this, multiplanar reconstructed images of left wrist were also acquired. FINDINGS: Study again confirms fracture of the distal pole of the scaphoid bone including waist of the carpal-scaphoid bone. The alignment is near anatomic. No CT evidence of avascular necrosis. The remaining carpal rows align anatomically. No additional fracture is identified. No free intra-articular loose body or bone fragment. Procedure Note Luiza Altamirano MD - 01/28/2014 CT SCAN OF LEFT WRIST: (01/28/2014) CLINICAL HISTORY: Followup of scaphoid fracture. COMPARISON: 10/22/2013. Multiple axial images of CT scan of left wrist were obtained. In addition to this, multiplanar reconstructed images of left wrist were also acquired. FINDINGS: Study again confirms fracture of the distal pole of the scaphoid bone including waist of the carpal-scaphoid bone. The alignment is near anatomic. No CT evidence of avascular necrosis. The remaining carpal rows align anatomically. No additional fracture is identified. No free intra-articular loose body or bone fragment. IMPRESSION Stable-appearing scaphoid fractures (distal half of the bone including the waist of the scaphoid going across the midshaft and along the radial aspect of the bone of the distal pole). Anatomic alignment. No complicating features. No convincing evidence of AVN. Georges Benítez MD CT ORDERABLES Care Teams Transit Mechanic Relationship Specialty Start Date End Date Sara Maldonado PA [address] [place] [id number] PCP - General 06/13/22
--- OUTSIDE RECORDS SUMMARY | 2024-08-21 21:39 | XMS_ITS | Clinical Summary ---
Author Organization [facility] Address [address] [place] [address] Care Team Providers Care Operator Specialist Communications Name Role Phone Sara Maldonado Primary Care Pr ovider Source Comments [facility],non-owned Affiliates and Associated Physician Practices is amultiple site organization consisting of ambulatory clinics and hospital sitesin [place], [place], [place] and [place]. This disclosure is being madepursuant to the Care Everywhere program and may not contain all information available regarding this patient. Last updated 18.[facility] Allergies No known active allergies Medications * Be aware that medications may not be up to date on this document. Alwaysverify current medications with the patient. Medication Sig Dispensed Refills Start Date End Date Status sertraline (Zoloft) 100 MG tablet Take 1 (one) tablet by mouth once daily 04/19/2023 Active fluticasone propionate (Flonase) 50 MCG/ACT nasal sprayIndications:[place] allergic rhinitis, unspecified trigger [facility] 2 (two) sprays into each nostril once daily 48 g 4 06/07/2023 Active azelastine (Astelin) 0.1 % nasal sprayIndications:[place] allergic rhinitis, unspecified trigger [facility] 1 (one) spray to 2 (two) sprays into each nostril 2 times daily Aim tip of spray bottle towards the SAME EYE as the nostril you are spraying in (e.g. 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 GROUNDS KEEPER Plan of Treatment Health Maintenance Due Date Last Done Comments HIV SCREENING 2001 HEPATITIS C SCREENING 11/16/2004 DTAP/TDAP/TD VACCINES (1 - Tdap) 2005 HEPATITIS B VACCINE (1 of 3 - 19+ 3-dose series) 2005 PNEUMOCOCCAL VACCINE (1 of 2 - PCV) 2005 COVID-19 VACCINE (1 - 2023-2 5 season) 2024 INFLUENZA VACCINE (#1) 2024 DEPRESSION SCREENING 07/30/2024 ZOSTER VACCINE (1 of 2) 2036 HIB VACCINE Aged Out No longer eligi ble based on patient's age to complete this topic HPV VACCINE Aged Out No longer eligi ble based on patient's age to complete this topic MENINGOCOCCAL (Group B) VACCINE Aged Out No longer eligible based on patient's age to complete this topic MENINGOCOCCAL VACCINE Aged Out No angelica martinez eligible based on patient's age to complete this topic Care Teams Operator Specialist Communications Relationship Specialty Start Date End Date Sara Maldonado PA [address] [place] [address] PCP - General 06/13/22
--- OUTSIDE RECORDS SUMMARY | 2024-08-21 21:39 | XMS_ITS | Clinical Summary ---
Author Organization [facility] Address [address] [place] [address]. [place] [id number] [place], [place] [id number] Care Team Providers Care Painter Structural Steel Name Role Phone Unavailable Primary Care Provider Unavailabl e Social History Tobacco Use Types Packs/Day Years Used Date Smoking Tobacco: Never Assessed Sex and Gender Information Value Date Recorded Sex Assigned at Not on file Legal Sex Male 3:16 PM CDT Gender Identity Not on file Sexual Orientation Not on file Plan of Treatment Health Maintenance Due Date Last Done Comments Annual Physical 1989 Hepatitis C 2004 DTaP, Tdap and Td Vaccines ( 1 - Tdap) 2005 Hepatitis B Vaccines (1 of 3 - 19+ 3-dose series) 2005 COVID-19 Vaccine (2023-2 5 season) 2024 Influenza Adult (#1) 2024 HPV Vaccines Aged Out No longer eligi ble based on patient's age to complete this topic Meningococcal Vaccine Aged Out No angelica martinez eligible based on patient's age to complete this topic Pneumococcal Vaccine: Pediat rics (0 to 5 Years) and At-Risk Patients (6 to 64 Years) Aged Out No longer eligible b ased on patient's age to complete this topic RSV Immunizations Under 20 Months Aged Out No longer eligible based on patient's age to complete this topic
--- OUTSIDE RECORDS SUMMARY | 2024-08-21 21:39 | XMS_ITS | Data Portability ---
[facility] [address] [place] [address] Care Team Providers Care General Maintenance Mechanic Name Role Phone SARA JONES Primary Care Provider Unavailab le Assessment No assessment recorded. Plan of Treatment Reminders Order Date Submit Date Provider Last Modified By Organization Details Last Modified Time Details Appointments ANY 15 2024 03:00P M KLEVER Boyle Not available Not available Not available Lab TSH + free T4, serum 2023 024 moreno Rmoeo, [address], [address], [place], [address], 01/15/2024 12:30:36 CBC w/ auto diff 2023 024 [facility] Ousmane, 2022 [address], [address], [place], [address], 01/15/2024 12:31:55 CMP, serum or plasma 2023 [facility]24 [facility] [address], [address], [place], [address], 01/15/2024 12:31:43 vitamin B12 + folate, serum or blood 2023 024 moreno Romeo, 2022 [address], [address], [place], [address], 01/15/2024 12:31:31 lipid panel, serum 2023 024 moreno Romeo, 2022 [address], [address], [place], [address], 01/15/2024 12:31:20 HbA1c (hemoglob in A1c), blood 2023 024 [facility], [address], [address], [place], [address], 01/15/2024 12:31:07 amylase, serum or plasma 2023 024 [email or web address] [facility], [address], [place], [address], 02/27/2024 09:35:37 lipase, serum or plasma 2023 024 [email or web address] [facility], [address], [place], [address], 02/27/2024 09:35:37 CMP, serum or plasma 2023 024 [email or web address], [address], [place], [address], 02/27/2024 09:35:37 CBC w/ auto diff 2023 024 [email or web address], [address], [place], [address], 02/27/2024 09:35:36 iron + TIBC + ferritin, serum 2023 024 [email or web address] [facility], [address], [place], [address], 03/12/2024 09:04:44 vitamin B12 + folate, serum or blood 2023 024 [email or web address] [facility], [address], [place], [address], 03/12/2024 09:04:44 lipase, serum or plasma 2023 024 [email or web address] [facility], [address] , [place], [address], 04/10/2024 17:10:44 amylase, serum or plasma 2023 024 [email or web address] [facility], [address], [place], [address], 04/10/2024 17:10:54 CBC w/ auto diff 2023 024 [email or web address] [facility], [address], [place], [address], 04/17/2024 17:25:33 CMP, serum or plasma 2023 024 [email or web address] [facility], [address], [place], [address], 04/17/2024 17:25:34 iron + TIBC + ferritin, serum 2023 024 GUERRERO [facility], [address], [place], [address], 04/04/2024 09:40:42 urinalysi s complete, reflex culture 2023 024 [email or web address] [facility], [address], [place], [address], 06/18/2024 16:27:02 CMP, serum or plasma 2023 024 [email or web address] [facility], [address], [address] [address], [place], [address], 07/31/2024 14:57:32 iron + TIBC + ferritin, serum 2023 024 [email or web address] [facility], [address], [place], [address], 07/16/2024 10:58:51 CBC w/ auto diff 2023 024 [email or web address] [facility], [address], [place], [address], 07/16/2024 10:59:00 Referral urologist referral 2023 024 [email or web address] [facility], [address], [address], [place], [address], 07/31/2024 11:32:49 Procedures upper endoscopy (EGD) with diagnosti c colonosco py (PROC) - patient high suspiciou s for PUD, now with anemia, abdominal pain, known reflux, also some blood in stools. 2023 024 [facility], [address], [place], [address], 04/22/2024 12:35:57 Surgeries None recorded. Imaging XR, chest, 2 view 2023 024 [email or web address] [facility], [address], [address], [place], [address], 04/10/2024 12:05:09 XR, ribs, unilatera l 2023 024 [facility], [address], [address], [place], [address], 04/03/2024 08:26:02 CT, neck, soft tissue, w/ contrast 2023 024 [facility], [address], [address], [place], [address], 08/20/2024 12:42:46 Medication Orders sertralin e 100 mg tablet 2023 024 [facility], [address], [place], [place], [id number], 12/26/2023 16:55:21 omeprazol e 40 mg capsule,d elayed release 2023 024 [facility]37[facility], [address], [place], [place], [id number], 12/26/2023 16:55:20 amlodipin e 5 mg tablet 2023 024 [facility] #41998, [address] [facility], [place], [place], [id number], 04/06/2024 22:37:38 amlodipin e 10 mg tablet 2023 024 [facility] #99271, [address] [facility], [place], [place], [id number], 04/01/2024 17:33:12 amoxicill in 875 mg-potass ium clavulana te 125 mg tablet 2023 024 [facility] #16642, [address] [facility] [facility], [place], [place], [id number], 06/18/2024 16:31:14 losartan 50 mg tablet 2023 024 [facility] #47642, [address] [facility] [facility], [place], [place], [id number], 06/18/2024 16:27:15 Patient TargetsNo targets recorded. Patient InstructionsNo instructions recorded. Reason for Referral Urologist Referral for Urina ry incontinence Referring Physician: Sara Jones, Internal Medicine, Encounter Date: 06/18/2024 Results Created Date Observation Date Name Description Value Unit Range Abnormal Flag Note LastModifiedBy Organization Detail LastModifiedTime 02/02/2002/01/2024 US, abdom en, compl ete No observ ation record ed. [address], [place], [address], 02/03/2024 14:40:31 02/04/20 24 02/01/2024 CT, abdom en + pelvi s, w/ contr ast No observ ation record ed. [email or web address] [place], [place] [address] [facility] [address], [place], [address], 02/07/2024 23:44:40 0702/15/2024 US, abdom en, compl ete No observ ation record ed. [address], [place], [address], 02/20/2024 14:36:53 04/03/20 24 04/02/2024 XR, ribs, unila teral No observ ation record ed. [address], [place], [address], 04/10/2024 12:05:05 04/03/20 24 04/03/2024 CT, abdom en + pelvi s, w/ contr ast No observ ation record ed. [address] [facility], [place], [address], 06/29/2024 18:31:22 07/11/20 24 07/11/2024 CT, abdom en + pelvi s, w/o contr ast No observ ation record ed. [address], [place], [address], 07/11/2024 13:27:45 08/20/19 25 08/20/2024 CT, neck, soft tissu e, w/ contr ast No observ ation record ed. [address], [place], [address], 08/21/2024 08:54:31 Result Notes None recorded. Problems Name Problem SNOMED Code Status Onset Date Resolution Date Notes Provider Name and Address Organization Details Recorded Time Long-term drug therapy Active 2023 KLEVER Boyle Attn: Oz lopez,[address] [facility], [place], [address], [facility] 4 09:20:40 Obstructive sleep apnea syndrome 85347946 Active 2023 KLEVER Boyle Attn: Oz lopez,[address] [facility], [place], [address], [facility] 4 09:23:32 Gastroesophage al reflux disease without esophagitis 246370509 Active 2023 KLEVER Boyle Attn: Accountin g,[address] [facility], [place], [address], [place] [facility] 4 09:23:42 Benign essential hypertension 1308138 Active 2023 KLEVER Boyle Attn: Accountin g,[address] [facility], [place], [address], [place] [facility] 4 09:23:43 Generalized anxiety disorder 98881309 Active 2023 KLEVER Boyle Attn: Accountin g,[address] [place], [address], [place] [facility] 4 09:24:29 Body mass index 20-24 - normal 400309817 Active 2023 KLEVER Boyle Attn: Accountin g,[address] [place], [address], [place] [facility] 4 23:21:15 Gastro-esophag eal reflux disease with esophagitis 316173260 Active 2023 KLEVER Boyle Attn: Accountin g,[address] [place], [address], [place] [facility] 4 23:21:51 Upper abdominal pain 11613497 Active 2023 KLEVER Boyle Attn: Accountin g,[address] [facility], [place], [address], [place] [facility] 4 23:21:52 Anemia 970190949 Active 2023 KLEVER Boyle Attn: Accountin g,[address] [place], [address], [place] [facility] 4 23:21:53 Alcoholism 7384556 Active 2023 KLEVER Boyle Attn: Accountin g,[address] [place], [address], [facility] 23:22:44 Urinary incontinence 978892314 Active 2023 KLEVER Boyle Attn: Oz lopez,[address], [place], [address], [facility] 18:33:56 Problem Notes None recorded. Procedures Surgical History Date Name Laterality Status Provider Name and Address Organization Details Recorded Time Eye Surgery completed Jennie Hurtado [facility] 12/27/2023 09:07:39 Tonsillectomy completed Jennie Hurtado [facility] 12/27/2023 09:07:45 Vasectomy completed Jennie Hurtado MA [facility] 12/27/2023 09:07:51 Imaging Results Imaging Date Name Status LastModified by Organiz ation Details LastModified Time 02/01/2024 US, abdomen, complete completed [address], [address], 02/03/2024 14:40:31 02/01/2024 CT, abdomen + pelvis, w/ contrast completed [address], [address], 02/07/2024 23:44:40 02/15/2024 US, abdomen, complete completed [address], [address], 02/20/2024 14:36:53 04/02/2024 XR, ribs, unilateral completed [address], [address], 04/10/2024 12:05:05 04/03/2024 CT, abdomen + pelvis, w/ contrast completed [address], [address], 06/29/2024 18:31:22 07/11/2024 CT, abdomen + pelvis, w/o contrast completed [address], [place], [address], 07/11/2024 13:27:45 08/20/2024 CT, neck, soft tissue, w/ contrast active [email or web address] [facility] [address], [place], [address], 08/21/2024 08:54:31 Procedure Notes None recorded. Medical Equipment None Reported. Allergies No known drug allergies Medications Name Sig Start Date Stop Date Status Note LastModified by Organization Details LastModified Time enclomiphen e cit 25mg #157920 tablets 12/25 completed Not Available Not Available Not Available losartan 50 mg tablet Take 1 tablet every day by oral route at dinner. 2023 active Not Available Not Available Not Avai lable doxycycline hyclate 100 mg capsule Take 1 capsule twice a day by oral route with meal(s). 2024 active Not Available Not Available Not Avai lable hydrocodone 5 mg-acetamin ophen 325 mg tablet TAKE 1 TABLET BY MOUTH EVERY 8 HOURS NEEDED FOR PAIN 06/18 completed Not Available Not Available Not Available famotidine 40 mg tablet TAKE 1 TABLET BY MOUTH EVERY DAY AT DINNER active Not Available Not Available No t Available prednisone 20 mg tablet TAKE 2 TABLETS BY MOUTH DAILY 02/19 completed Not Available Not Available Not Available sertraline 100 mg tablet TAKE 1 TABLET BY MOUTH EVERY DAY active Not Available Not Available No t Available amlodipine 2.5 mg tablet TAKE 1 TABLET BY MOUTH DAILY 12/25 completed Not Available Not Available Not Available amlodipine 5 mg tablet TAKE 1 TABLET BY MOUTH EVERY DAY 04/06 completed Not Available Not Available Not Available omeprazole 40 mg capsule,del ayed release TAKE 1 CAPSULE BY MOUTH EVERY DAY IN THE MORNING active Not Available Not Available No t Available tramadol 50 mg tablet TAKE 1 TABLET BY MOUTH EVERY 6 HOURS NEEDED 12/25 completed Not Available Not Available Not Available famotidine 20 mg tablet TAKE 1 TABLET BY MOUTH DAILY 04/01 completed Not Available Not Available Not Available tamsulosin 0.4 mg capsule TAKE 1 CAPSULE BY MOUTH DAILY 06/18 completed Not Available Not Available Not Available amlodipine 10 mg tablet TAKE 1 TABLET BY MOUTH EVERY DAY active Not Available Not Available No t Available cephalexin 500 mg capsule TAKE 1 CAPSULE BY MOUTH EVERY 8 HOURS FOR 10 DAYS 12/25 completed Not Available Not Available Not Available testosteron e cypionate 200 mg/mL intramuscul ar oil 12/25 completed Not Available Not Available Not Available polyethylen e glycol 3350 17 gram/dose oral powder MIX 1 CAPFUL OF POWDER WITH LIQUID AND DRINK EVERY DAY 06/18 completed Not Available Not Available Not Available albuterol sulfate HFA 90 mcg/actuati on aerosol inhaler INHALE 1 PUFF FOUR TIMES DAILY NEEDED FOR SHORTNESS OF BREATH OR WHEEZING active Not Available Not Available No t Available ondansetron 4 mg disintegrat ing tablet DISSOLVE 1 TABLET ON THE TONGUE EVERY 8 HOURS NEEDED FOR NAUSEA OR VOMITING 06/18 completed Not Available Not Available Not Available amoxicillin 875 mg-potassiu m clavulanate 125 mg tablet Take 1 tablet every 12 hours by oral route, for tooth pain. 2023 active Not Available Not Available Not Avai lable oxycodone 5 mg tablet TAKE 1 TABLET BY MOUTH EVERY 8 HOURS NEEDED FOR PAIN 12/25 completed Not Available Not Available Not Available Vitals Date Recorded Body height Provider Name an d Address Organization Details Last Updated DateTime 12/26/2023 190.5 cm Jennie Hurtado MA [facility] 2023 16:30:07 Date Recorded Respiratory rate Provider Name a nd Address Organization Details Last Updated DateTime 12/26/2023 18 /min Jennie Hurtado MA [facility] 12/26/2023 16:30:11 Date Recorded Body mass index (BMI) Body weight Provider Name and Address Organization Details Last Updated DateTime 12/26/2023 16.6 kg/m2 78912.14 g Jennie Hurtado MA [facility] 12/26/2023 16:32:16 Date Recorded Heart rate Provider Name an d Address Organization Details Last Updated DateTime 12/26/2023 80 /min Jennie Hurtado MA [facility] 2023 16:32:28 Date Recorded Oxygen saturation Oxygen saturation in Arterial blood by Pulse oximetry Provider Name and Address Organization Details Last Updated DateTime 12/26/2023 98 % 98 % Jennie Hurtado [place] [facility] 12/26/2023 16:32:30 Date Recorded Body height Provider Name an d Address Organization Details Last Updated DateTime 02/20/2024 190.5 cm Jennie Hurtado [place] [facility] 2023 11:03:49 Date Recorded Body mass index (BMI) Body weight Provider Name and Address Organization Details Last Updated DateTime 02/20/2024 22.4 kg/m2 05102.18 g Jennie Hurtado [facility] 02/20/2024 11:08:00 Date Recorded Respiratory rate Provider Name a nd Address Organization Details Last Updated DateTime 02/20/2024 18 /min Jennie Hurtado [place] [facility] 02/20/2024 11:08:05 Date Recorded Oxygen saturation Oxygen saturation in Arterial blood by Pulse oximetry Provider Name and Address Organization Details Last Updated DateTime 02/20/2024 97 % 97 % Jennie Hurtado MA [facility] 02/20/2024 11:09:00 Date Recorded Heart rate Provider Name an d Address Organization Details Last Updated DateTime 02/20/2024 85 /min Jennie Hurtado MA [facility] 2023 11:09:02 Date Recorded Body height Provider Name an d Address Organization Details Last Updated DateTime 04/01/2024 190.5 cm Jennie Hurtado [facility] 2023 17:05:06 Date Recorded Respiratory rate Provider Name a nd Address Organization Details Last Updated DateTime 04/01/2024 18 /min Jennie Hurtado MA [facility] 04/01/2024 17:07:58 Date Recorded Oxygen saturation Oxygen saturation in Arterial blood by Pulse oximetry Provider Name and Address Organization Details Last Updated DateTime 04/01/2024 98 % 98 % Jennie Hurtado [place] [facility] 04/01/2024 17:08:37 Date Recorded Heart rate Provider Name an d Address Organization Details Last Updated DateTime 04/01/2024 78 /min Jennie Hurtado MA [facility] 2023 17:08:40 Date Recorded Body height Provider Name an d Address Organization Details Last Updated DateTime 06/18/2024 190.5 cm Jennie Hurtado MA [facility] 2023 15:52:27 Date Recorded Body mass index (BMI) Body weight Provider Name and Address Organization Details Last Updated DateTime 06/18/2024 24.5 kg/m2 14047.1 g Jennie Hurtado MA [facility] 06/18/2024 15:54:42 Date Recorded Respiratory rate Provider Name a nd Address Organization Details Last Updated DateTime 06/18/2024 18 /min Jennie Hurtado MA [facility] 06/18/2024 15:56:05 Date Recorded Oxygen saturation Oxygen saturation in Arterial blood by Pulse oximetry Provider Name and Address Organization Details Last Updated DateTime 06/18/2024 97 % 97 % Jennie Hurtado MA [facility] 06/18/2024 15:56:36 Date Recorded Heart rate Provider Name an d Address Organization Details Last Updated DateTime 06/18/2024 84 /min Jennie Hurtado MA [facility] 2023 15:56:46 Date Recorded Systolic blood pressure Diastolic blood pressure Provider Name and Address Organization Details Last Updated DateTime 12/26/2023 150 mm[Hg] 98 mm[Hg] Jennie Hurtado MA [facility] 12/26/2023 16:33:47 Date Recorded Systolic blood pressure Diastolic blood pressure Provider Name and Address Organization Details Last Updated DateTime 12/26/2023 150 mm[Hg] 90 mm[Hg] KLEVER Boyle Attn: Accounting,[address] [place], [address], [facility] 12/26/2023 16:56:09 Date Recorded Systolic blood pressure Diastolic blood pressure Provider Name and Address Organization Details Last Updated DateTime 12/26/2023 160 mm[Hg] 90 mm[Hg] KLEVER Boyle Attn: Accounting,[address] [place], [address], [facility] 12/26/2023 16:56:16 Date Recorded Systolic blood pressure Diastolic blood pressure Provider Name and Address Organization Details Last Updated DateTime 02/20/2024 162 mm[Hg] 92 mm[Hg] Jennie Hurtado MA [facility] 02/20/2024 11:10:02 Date Recorded Systolic blood pressure Diastolic blood pressure Provider Name and Address Organization Details Last Updated DateTime 02/20/2024 140 mm[Hg] 90 mm[Hg] KLEVER Boyle Attn: Accounting,[address] [facility], [place], [address], [facility] 02/20/2024 11:28:16 Date Recorded Systolic blood pressure Diastolic blood pressure Provider Name and Address Organization Details Last Updated DateTime 02/20/2024 134 mm[Hg] 90 mm[Hg] KLEVER Boyle Attn: Accounting,[address] [place], [address], [facility] 02/20/2024 11:29:13 Date Recorded Systolic blood pressure Diastolic blood pressure Provider Name and Address Organization Details Last Updated DateTime 04/01/2024 160 mm[Hg] 90 mm[Hg] Jennie Hurtado MA [facility] 04/01/2024 17:09:44 Date Recorded Systolic blood pressure Diastolic blood pressure Provider Name and Address Organization Details Last Updated DateTime 06/18/2024 160 mm[Hg] 88 mm[Hg] Jennie Hurtado MA [facility] 06/18/2024 15:58:30 Date Recorded Systolic blood pressure Diastolic blood pressure Provider Name and Address Organization Details Last Updated DateTime 06/18/2024 140 mm[Hg] 80 mm[Hg] KLEVER Boyle Attn: Accounting,[address] [place], [address], [facility] 06/18/2024 16:19:46 Date Recorded Systolic blood pressure Diastolic blood pressure Provider Name and Address Organization Details Last Updated DateTime 06/18/2024 140 mm[Hg] 90 mm[Hg] LKEVER Boyle Attn: Accounting,[address] [place], [address], [facility] 06/18/2024 16:20:55 Social History Question Answer Notes LastModified by Organizat ion Details LastModified Time Tobacco Smoking Status Current Every Day Smoker Jennie Hurtado MA null, [facility] 12/26/2023 16:31:10 What Is Your Level Of Alcohol Consumption? Occasional Information not available 12/26/2023 Are You Blind Or Do You Have Difficulty Seeing? No Information not available 12/26/2023 What Is Your Level Of Caffeine Consumption? Moderate Information not available 12/26/2023 In The 14 Days Before Symptom Onset, Have You Had Close Contact With A Laboratory-confir med COVID-19 While That Case Was Ill? No Information not available 12/26/2023 In The 14 Days Before Symptom Onset, Have You Had Close Contact With A Person Who Is Under Investigation For COVID-19 While That Person Was Ill? No Information not available 12/26/2023 Have You Been To An Area Known To Be High Risk For COVID-19? No Information not available 12/26/2023 Are You Currently Employed? Yes Information not available 12/26/2023 Are You Deaf Or Do You Have Serious Difficulty Hearing? No Information not available 12/26/2023 What Type Of Diet Are You Following? REGULAR Information not available 12/26/2023 Are There Any Guns Present In Your Home? No Information not available 12/26/2023 What Was The Date Of Your Most Recent Tobacco Screening? 06/18/2024 Information not available 06/18/2024 What Is Your Current Pack Years? 10-19packyears Information not available 12/26/2023 What Is Your Relationship Status? Information not available 06/18/2024 Do You Use Your Seat Belt Or Car Seat Routinely? Yes Information not available 12/26/2023 Do You Have Smoke And Carbon Monoxide Detectors In Your Home? Yes Information not available 12/26/2023 At What Age Did You Start Smoking Tobacco? 16 Information not available 12/26/2023 How Much Tobacco Do You Smoke? 1 PPD Information not available 12/26/2023 Do You Use Any Illicit Or Recreational Drugs? No Information not available 12/26/2023 Do You Use Sunscreen Routinely? No Information not available 02/20/2024 Has Tobacco Cessation Counseling Been Provided? Yes Information not available 12/26/2023 On What Date Was Tobacco Cessation Counseling Provided? 06/18/2024 Information not available 06/18/2024 Do You Or Have You Ever Used Any Other Forms Of Tobacco Or Nicotine? No Information not available 12/26/2023 Sex: Male Functional Status Question Answer Note LastModified by Organizat ion Details LastModified Time Are you able to care for yourself? Yes Information not available 12/26/2023 What is your exercise level? Occasional Information not available 12/26/2023 Mental Status None recorded. Family History Relationship Description Onset Age of this Age Resolved Age Notes LastModified by Organization Details LastModified Time Mother Hypertensive disorder [email or web address] Not available 2023 09:08:02 Medical History Condition Response Coronary Artery Disease N Other N Atrial Fibrillation N High Blood Pressure N Thyroid Problems N Kidney or Bladder Problems N Depression N COPD N Blood Clots N GI Problems N Skin Problems N Anemia N Heart Attack ([place]) N Diabetes N Anxiety Disorder Y Muscle, Joint, or Bone Problems N Seizures/Epilepsy N Acid Reflux (GERD) N Cancer N Stroke N Allergies N Asthma N High Cholesterol N Hepatitis N Liver Disease N Headaches N Osteoporosis N Heart Failure N Immunizations Vaccine Type Date Status Note Provider Nam e and Address Organization Details Recorded Time MMR 03/13/1992 G[place], [place] [facility] 06/17/2024 14:43:56 Tdap 01/20/2022 eugenie Hurt[place] [facility] 06/17/2024 14:43:56 Tdap 02/20/2017 eugenie [place]urt[place] [facility] 06/17/2024 14:43:56 DTP 03/13/1992 eugenie [place] [facility] 06/17/2024 14:43:56 OPV 03/13/1992 GENO [place] [facility] 06/17/2024 14:43:56 Hep B, adolescent or pediatric 08/28/1996 eugenie [place] [facility] 06/17/2024 14:43:56 Hep B, adolescent or pediatric 12/18/1996 completed GENO Odonnell, [place] - [facility] 06/17/2024 14:43:56 Hep B, adolescent or pediatric 07/10/1996 completed Jennie Hurtado MA rosie, [place] - [facility] 06/17/2024 14:43:56 Past Encounters Encounter ID Performer Location Encounter Start Date Encounter Closed Date Diagnosis/Indication Diagnosis SNOMED-CT Code Diagnosis ICD10 Code Diagnosis Note [id number] KLEVER Boyle [facility] [employer] [address] [place] [address] 12/26/2023 16:23:37 12/31/2023 15:17:32 Adult health examination 545495340 Z00.01 annual wellness completed Generalize d anxiety disorder 58208303 F41.1 Refill sertraline 100mg daily. patient reports feeling stable on this dosing. Long-term drug therapy 179910050 Z79.899 cmp, cbc and b12, folate labs are due Gastroesop hageal reflux disease without esophagitis [id number] K21.9 Refill omeprazole 40mg daily. Cholesterol screening 27 9655960 Z13.220 fasting lipids due Diabetes m ellitus screening [id number] Z13.1 a1c screening due Thyroid di sorder screening 475001324 Z13.29 annual thyroid labs dure Benign ess ential hypertension 5054400 I10 BP is 160/90 range. He is aware that drinking alcohol is the biggest contributo r to high BP for him. He will need to start amlodipine 5mg daily. Obstructiv e sleep apnea syndrome 38602179 G47.33 pt has difficulty keeping cpap on at night due to navigating to stomach in middle of night. Encouraged patient to try sleep position training and melatonin or tylenol PM to help him rest in back position for a while. [id number] KLEVER Boyle [employer] [address] [place] [address] 02/20/2024 10:43:23 02/20/2024 11:52:04 Body mass index 20-24 - normal [id number] Z68.22 BMI is 22.4 Anemia 084781698 D64.9 Patient has new anemia of the last 2 sets of labs recently accompanie d with upper abdominal pain and acid reflux and underlying alcohol dependence . Refer patient for upper endoscopy and diagnostic colonoscop y. He is also due for repeat CBC, iron studies and B12/folic acid. Gastro-eso phageal reflux disease with esophagitis 619981419 K21.00 Continue omeprazole 40 mg daily in the morning and famotidine 40 mg at dinner Upper abdominal pain 831 12959 R10.10 Repeat amylase and lipase and CMP Occult blo od detected in feces 81873143 R19.5 Patient has blood in the stool. Colonoscop y is ordered as above under anemia diagnosis Alcoholism 5135732 F10.2 0 History noted. Long discussion with patient today again about decreasing his daily intake of beer. [id number] KLEVER Boyle [employer] [address] [place] [address] 04/01/2024 16:43:41 04/02/2024 14:16:14 Costal chondritis 29736927 M94.0 Diagnostic s ordered as above, patient can not take NSAID therapy at this time with betito thorne pending results for EGD. He can take Tylenol 1000 mg 3 times daily for his left upper quadrant pain Left upper quadrant pain 442842593 R10.12 Repeat lipase, amylase, CBC and CMP Costal mar gin chest pain 475877220 R07.81 Check chest x-ray and left-sided rib x-rays Anemia 713217158 D64.9 Check updated iron studies and continue with plans for EGD and colonoscop y next week Benign ess ential hypertension 4168965 I10 Blood pressure is 160/90 today. boost to 10mg daily amlodipine [id number] KLEVER Boyle [facility] [employer] [address] [email or web address] [address] 06/18/2024 15:44:56 06/18/2024 16:31:28 Generalized anxiety disorder 27523660 F41.1 Stable on sertraline 100mg daily. patient reports feeling stable on this dosing. Benign ess ential hypertension 0140944 I10 Patient's blood pressure is at 140/90 which is now a couple of visits where he has been running at this upper limit just above normal. We are going to start low-dose losartan 50 mg daily to accompany the amlodipine 10 mg daily that he has already been on. Gastroesop hageal reflux disease without esophagitis 227272525 K21.9 For reflux management will have him continue omeprazole 40 mg daily and famotidine 40 mg with dinner. Obstructiv e sleep apnea syndrome 22449971 G47.33 pt has difficulty keeping cpap on at night due and not using. Encouraged patient to try sleep position training and melatonin or tylenol PM to help him rest in back position for a while. Long-term drug therapy 406519171 Z79.899 Complete metabolic panel is ordered for lab assessment Anemia 947366770 D64.9 Colonoscop y showed few diverticul a sigmoid colon a 4 mm polyp in the sigmoid that was removed no colitis no AVM, few medium-siz ed internal hemorrhoid s which were not bleeding. Repeat in 5 yearsUpper endoscopy showed reflux esophagiti s.We will repeat an updated CBC and iron studies panel Urinary incontinence 165 652983 R32 Patient reports today on review of systems that he has been having some urinary incontinen ce that is a new symptom. We will refer him for urinalysis with culture and also send him to a urologist for formal consultati on Cervical lymphadenopathy 527059059 R59.0 Generalize d cervical lymphadeno gray and fullness is noted on exam today bilaterall y in the retrophary ngeal lymph node region. We will refer the patient for a soft tissue CT scan of the neck and start a course of Augmentin 875 mg twice daily for 7 days. He does have some chronic allergy sinus complaints that could be contributi ng to this but with his high-risk setting of tobacco dependence we will be sure to get a CT ordered. Health Concerns Section Related Observation LastModified by Organization Detai ls LastModified Time None Recorded Concern Status LastModified by Organization Details LastModified Time None Recorded Advance Directives Directive None Recorded Payers Encounter Date Sequence Insurance Name Policy Number Policy Melvin Covered Member ID Melvin Member ID Guarantor Name 12/26/2023 1 [place] [id number] Wisam Jaylyn [id number] Wisam Jaylyn 02/20/2024 1 [place] [id number] Wisam Jaylyn [id number] XAVIER De La O 04/01/2024 1 [place] [id number] Wisam De La O [id number] XAVIER De La O 06/18/2024 1 [place] [id number] Wisam De La O [id number] XAVIER De La O Notes Date Note Type Note Provider Name and Address Organization Details Recorded Time 024 text/ht ml Anxiety/DepressionReported bypatient.Quality:symptoms improved Severity:denies suicidal ideations; able to maintain relationships; does not interfere with activities of daily living Duration:stablizing Context:no major life stressors;ETOH use Modifying Factors:medications as directed Associated Symptoms:denies homicidal ideations; no significant weight gain; no significant weight loss; no shortness of breath; no panic; maintaining functionalityHypertensionReported bypatient.Duration:has noted for months Onset/Timing:worse Aggravating Factors:weight change;alcohol use;salt intake Associated Symptoms:no shortness of breath; no palpitations; no decline in exercise capacity; no snoring;fatigueObstructive Sleep Apnea F/UReported bypatient.Quality:loud snoring;witnessed apnea;frequent breathing through the mouth;snoring with apnea Onset/Timing:chronic Duration:continuous Severity:does not limit daily activities; no frequent sore throats resulting in excess missed days from school / work per year; no difficulty getting going in the morning; no awakening in the middle of the night with sore throat Alleviating factors:difficulty keeping cpap on because he's a stomach sleeper and finds himself on stomach with mask off Prior Tests:thyroid panel; home sleep study Prior TreatmentCPAP Prior opinionPCPReflux/GERDReported bypatient.Symptomsheartburn Severity:improving Duration:present 1-4 years Onset/Timing:occasional Context:ETOH use Alleviating Factors:protein pump inhibitors Aggravating Factors:alcohol use;lying down;worsened by food Associated Symptoms:no frequent coughing; no feeling of fullness/mass in throat; no hoarseness; no food getting stuck; no belching/burping; no nausea; no vomiting; no difficulty swallowing; no pain when swallowing;heartburn KLEVER Boyle Attn: Accounting, [address] [place], [address], [facility] 12/29/2023 09:24:52 024 text/ht ml Abdominal PainReported bypatient.Location:LUQ; RUQ; epigastric Quality:pain;dull Severity:moderate Duration:constant Onset/Timing:wax/wane Modifying Factors:nothing gives relief Associated Symptoms:no fever; no chills; no shortness of breath;heartburn;decreased appetiteReflux/GERDReported bypatient.Symptomsheartburn Quality:burning Severity:same;moderate Duration:present 1-4 years Onset/Timing:daily Context:smoker PPD;ETOH use;related to stress Alleviating Factors:nothing helps Aggravating Factors:alcohol use;worsened by food Associated Symptoms:no frequent coughing; no feeling of fullness/mass in throat; no hoarseness; no food getting stuck; no belching/burping; no nausea; no vomiting; not vomiting blood; no regurgitation; no shortness of breath; no chest pain; no difficulty swallowing; no pain when swallowing; no decreased appetite; no weight loss; no throat pain;heartburn;black/tarry stools(Bright red blood in stool) KLEVER Boyle Attn: Accounting, [address] [place], [place], [address] [place] [address], [facility] 02/25/2024 23:23:12 024 text/ht ml Patient reports today with pain in left upper quadrant near the ribs., no shortness of breath, no wheezing, Pt/ states that it started about 1 week ago. He has EGD and colonoscopy pending for next week. He feels bloated with abdominal distention. He has no nausea or vomiting no diarrhea constipation no fevers or chills and no blood in the stool. Hypertension-patient is taking amlodipine 5 mg daily for blood pressure but there is blood pressure elevation today Anemia history-patient has upcoming EGD and colonoscopy scheduled for next week KLEVER Boyle Attn: Accounting, [address] [place], [address], [facility] 04/06/2024 22:38:09 024 text/ht ml AnemiaReported bypatient.Severity:Macrocytic (MCV>100) Duration:constant Timing:better Context:low Iron;history of GERD Modifying Factors:nothing gives relief Associated Symptoms:no shortness of breath; no chest pain;epigastric abdominal pain;nausea;fatigue Prior Tests:lower endoscopy; Upper endoscopyAnxiety/DepressionReported bypatient.Quality:symptoms improved Severity:denies suicidal ideations; able to maintain relationships; does not interfere with activities of daily living Duration:stablizing Context:no major life stressors;ETOH use Modifying Factors:medications as directed Associated Symptoms:denies homicidal ideations; no significant weight gain; no significant weight loss; no shortness of breath; no panic; maintaining functionalityHypertensionReported bypatient.Duration:has noted for months Onset/Timing:worse Aggravating Factors:weight change;alcohol use;salt intake Associated Symptoms:no shortness of breath; no palpitations; no decline in exercise capacity; no snoring;fatigueObstructive Sleep Apnea F/UReported bypatient.Quality:loud snoring;witnessed apnea;frequent breathing through the mouth;snoring with apnea Onset/Timing:chronic Duration:continuous Severity:does not limit daily activities; no frequent sore throats resulting in excess missed days from school / work per year; no difficulty getting going in the morning; no awakening in the middle of the night with sore throat Alleviating factors:difficulty keeping cpap on because he's a stomach sleeper and finds himself on stomach with mask off Prior Tests:thyroid panel; home sleep study Prior TreatmentCPAP Prior opinionPCPReflux/GERDReported bypatient.Symptomsheartburn Quality:burning Severity:improving;moderate Duration:present 1-4 years Onset/Timing:daily; occasional Context:smoker PPD;ETOH use;related to stress Alleviating Factors:nothing helps; protein pump inhibitors Aggravating Factors:alcohol use;lying down;worsened by food Associated Symptoms:no frequent coughing; no feeling of fullness/mass in throat; no hoarseness; no food getting stuck; no belching/burping; no nausea; no vomiting; not vomiting blood; no regurgitation; no shortness of breath; no chest pain; no difficulty swallowing; no pain when swallowing; no decreased appetite; no weight loss; no throat pain;heartburn;black/tarry stools(Bright red blood in stool) KLEVER Boyle Attn: Accounting, [address] [facility], [place], [address], [facility] 06/29/2024 18:38:05
--- OUTSIDE RECORDS SUMMARY | 2024-08-21 21:39 | XMS_ITS | Referral Summary ---
Author Organization [facility] Edventory Address [address] [facility] [place] [address] Care Team Providers Care Evp Operations Name Role Phone Sara Maldonado Primary Care Pr ovider Source Comments [facility],non-owned Affiliates and Associated Physician Practices is amultiple site organization consisting of ambulatory clinics and hospital sitesin [place], [place], [place] and [place]. This disclosure is being madepursuant to the Care Everywhere program and may not contain all information available regarding this patient. Last updated 18.[facility] [employer] Allergies No known active allergies Medications * Be aware that medications may not be up to date on this document. Alwaysverify current medications with the patient. Medication Sig Dispensed Refills Start Date End Date Status sertraline (Zoloft) 100 MG tablet Take 1 (one) tablet by mouth once daily 04/19/2023 Active fluticasone propionate (Flonase) 50 MCG/ACT nasal sprayIndications:Seaso nal allergic rhinitis, unspecified trigger Redgranite 2 (two) sprays into each nostril once daily 48 g 4 06/07/2023 Active azelastine (Astelin) 0.1 % nasal sprayIndications:Seaso nal allergic rhinitis, unspecified trigger Redgranite 1 (one) spray to 2 (two) sprays [...] Comments Blood Pressure 165/100 06/07/2023 3:12 PM [facility] [facility] Pulse 82 06/07/2023 3:12 PM [employer] Temperature - - Respiratory Rate - - Oxygen Saturation 94% 05/17/2023 9:00 AM CDT Inhaled Oxygen Concentration - - Weight 79.4 kg (175 lb) 06/07/2023 3:12 PM [employer] Height 190.5 cm (6' 3 ) 06/07/2023 3:12 PM [employer] Body Mass Index 21.87 06/07/2023 3:12 PM [employer] Plan of Treatment Not on file Care Teams Evp Operations Relationship Specialty Start Date End Date Sara Maldonado PA [address] [place] [address] PCP - General 06/13/22
--- OUTSIDE RECORDS SUMMARY | 2024-08-21 21:39 | XMS_ITS | Data Portability ---
Author Organization [place] - [facility], Main Office Address [address] [place] [address] Care Team Providers Care Senior Electrical Project Manager Name Role Phone SANTOS JONES Primary Care Provider [phone] SANTOS JONES Referring Provider Assessment Encounter Date Assessment Date Assessment LastModified by Organization Details LastModified Time 11/22/2022 11/22/2022 I have reconciled the patient's medications post their discharge from inpatient facility. Not available 11/22/2022 13:57:39 05/30/2023 05/30/2023 37-year-old patient presents today with swelling on the back of his left knee for 1 month. He had a ultrasound done previously which showed a Taylor's cyst. he states it does not cause him much pain unless he is kneeling for a long period of time. he rates the pain a 2/10. He has not tried any treatments at this time. Review of systems per patient questionnaire Imaging: X-rays reviewed show no acute bony abnormality, no fracture. Preserved joint spaces throughout. Ultrasound report showed left Taylor's cyst. Physical exam: Nonantalgic gait. No tenderness with palpation. Able to palpate cyst but does not cause discomfort. Range of motion 0-150 without crepitus. Negative Zohaib's. Stable Ankit's with firm endpoint. Stable posterior drawer, varus and valgus stress. Normal patellar mobility we discussed the causes for a Taylor cyst and why we would not be draining at this time. For treatment he should start taking anti-inflammator ies and using a compressive wrap. Can also work on knee exercises at home on his own. He may follow-up with us as needed if the cyst begins to cause him pain or other new symptoms arise. He is in agreement with this plan. [email or web address] Not available 06/01/2023 09:12:29 Plan of Treatment Reminders Order Date Submit Date Provider Last Modified By Organization Details Last Modified Time Details Appointments None recorded. Lab CBC w/ auto diff 2022 023 [email or web address] 4 [facility], [address], [place], [address], 4 16:43:09 CMP, serum or plasma 2022 023 [email or web address] 4 [facility], [address], [place], [address], 4 16:43:09 Referral None recorded. Procedures None recorded. Surgeries None recorded. Imaging US, knee 2022 023 [facility], [address], [place], [address], 3 08:24:35 XR, knee, 3 view 2022 023 [email or web address] [facility], [address], [place], [address], 3 23:47:09 Medication Orders clindamycin HCl 300 mg capsule 2022 023 [email or web address] 4 [id number], [address], [place], [place], [id number], 3 14:42:34 Patient TargetsNo targets recorded. Patient InstructionsNo instructions recorded. Reason for Referral None Reported. Results Created Date Observation Date Name Description Value Unit Range Abnormal Flag Note LastModifiedBy Organization Detail LastModifiedTime 05/22/2005/10/2022 home sleep study No observ ation record ed. [id number].[id number] [facility] [address], [place], [address], 09/27/2022 22:08:00 05/31/20 22 05/31/2022 diagn ostic colon oscop y (PROC ) No observ ation record ed. MIGRATION.[id number] [facility] [address], [place], [address], 09/27/2022 22:08:00 05/09/20 23 05/08/2023 US, knee No observ ation record ed. [email or web address] [facility] [address], [place], [address], 05/22/2023 11:05:29 05/30/20 23 XR, knee, 3 view No observ ation record ed. [email or web address] [facility] [address], [place], [address], 05/30/2023 14:49:11 Result Notes None recorded. Problems Name Problem SNOMED Code Status Onset Date Resolution Date Notes Provider Name and Address Organization Details Recorded Time Apnea 8432676 Active 2021 Not Available [facility] 3 22:06:18 Laceration of left lower leg 0300682381699 9100 Active 2021 Not Available [facility] 3 22:06:18 Injury of left leg 4007827725073 9107 Active 2021 Not Available [facility] 3 22:06:18 Generalize d anxiety disorder 77110181 Active 2020 Not Available [facility] 3 22:06:18 Gastroesop hageal reflux disease 798231254 Active 2021 CARLA Ordonez null, [place] - [facility] 3 11:48:39 Bleeding external hemorrhoid s 42295031 Active 2021 Not Available [facility] 3 22:06:19 Avulsion - injury 387841608 Active 2021 Not Available [facility] 3 22:06:19 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 89911683 Active 2020 Not Available [facility] 3 22:06:19 Occult blood detected in feces 95007099 Active 2021 Not Available [facility] 3 22:06:19 Alcohol dependence 93520926 Active 2021 Not Available [facility] 3 22:06:19 Obstructiv e sleep apnea syndrome 56647577 Active 2021 CARLA Ordonez, [facility] [employer] [facility] 3 11:48:41 Fatigue 62493491 Active 2021 Not Available [facility] 3 22:06:19 Acute gingivitis 24896299 Active 2022 KLEVER Boyle [address], [address], [place], [address] , [employer] [facility] [employer] [facility] 3 16:21:55 Submental lymphadeno gray 811534214 Active 2022 KLEVER Boyle [address], [address], [place], [address] , [employer] [facility] [employer] [facility] [facility] 3 16:22:00 Abscess of scrotum 68161844 Active 2022 KLEVER Boyle [address], [address], [place], [address] , [employer] [facility] [employer] [facility] 3 17:31:50 Synovial cyst of left knee 7826767174975 02 Active 2022 KLEVER Boyle [address], [address], [place], [address] , [facility] [employer] [facility] 3 15:16:41 Pain of left knee joint 3943459030477 07 Active 2022 CARLA Gonzalez null, [employer] [facility] 3 14:27:40 Acute sinusitis 25399431 Active 2022 KLEVER Boyle [address], [address], [place], [address] , [facility] [employer] [facility] [employer] [facility] 3 14:57:43 Problem Notes None recorded. Procedures Surgical History Date Name Laterality Status Provider Name and Address Organization Details Recorded Time 3 urology emergency hospital admission completed CARLA Ordonez [facility] [employer] [facility] 11/20/2022 16:55:46 3 Vasectomy completed CARLA Ordonez [facility] [employer] [facility] 11/20/2022 16:56:27 [place] [facility] completed Not Available [facility] 09/27/2022 22:05:28 tonsilectomy/a denoids completed Not Available [facility] 09/27/2022 22:05:28 radical excision of lymph nodes completed Not Available [facility] 09/27/2022 22:05:28 Imaging Results Imaging Date Name Status LastModified by Organization Details LastModified Time 05/31/2022 diagnostic colonoscopy (PROC) completed [id number] [facility] [address], [address], 09/27/2022 22:08:00 05/10/2022 home sleep study completed MIGRATION.[id number] [id number] [facility] [address], [place], [address], 09/27/2022 22:08:00 05/08/2023 US, knee completed [email or web address] [facility] [address], [place], [address], 05/22/2023 11:05:29 05/30/2023 XR, knee, 3 view completed [email or web address] [facility] [address], [place], [address], 05/30/2023 14:49:11 Procedure Notes None recorded. Medical Equipment None Reported. Allergies Allergen ID Allergen Name Allergen Category Reaction Reaction Severity Criticality Documentation Date Start Date Code Code System Note Provider Name and Address Organization Details Recorded Time 32021 Product containin g penicilli n and antibioti c (product) medicatio n Not available Not available Not available 09/27/2022 78646 05 SNOMED FRANKLIN Yost, [facility] [employer] [facility] 3 14:21:44 Medications Name Sig Start Date Stop Date Status Note LastModified by Organization Details LastModified Time enclomiphen e cit 25mg #349099 tablets 05/02 completed Not Available Not Available Not Available anastrozole 1 mg tablet TAKE 1 TABLET BY MOUTH WEEKLY 04/28 completed Not Available Not Available Not Available clonidine HCl 0.1 mg tablet TAKE 1 TABLET BY MOUTH THREE TIMES DAILY DIRECTED 05/02 completed Not Available Not Available Not Available doxycycline hyclate 100 mg capsule TAKE 1 CAPSULE BY MOUTH TWICE DAILY WITH MEALS active Not Available Not Available No t Available clindamycin HCl 300 mg capsule TAKE 1 CAPSULE BY MOUTH EVERY 6 HOURS 11/21 completed Not Available Not Available Not Available azithromyci n 250 mg tablet TAKE 2 TABLETS (500 MG) BY ORAL ROUTE ONCE DAILY FOR 1 DAY THEN 1 TABLET (250 MG) BY ORAL ROUTE ONCE DAILY FOR 4 DAYS 04/27 completed Not Available Not Available Not Available prednisone 20 mg tablet TAKE 2 TABLETS BY MOUTH EVERY DAY FOR 5 DAYS 05/01 completed Not Available Not Available Not Available sertraline 100 mg tablet TAKE 1 TABLET BY MOUTH EVERY DAY active Not Available Not Available No t Available thiamine HCl (vitamin B1) 100 mg tablet Take 1 tablet every day by oral route. 05/22 completed Not Available Not Available Not Available amlodipine 2.5 mg tablet TAKE 1 TABLET BY MOUTH DAILY 05/02 completed Not Available Not Available Not Available omeprazole 40 mg capsule,del ayed release TAKE 1 CAPSULE BY MOUTH EVERY DAY 05/30 completed Not Available Not Available Not Available tramadol 50 mg tablet TAKE 1 TABLET BY MOUTH EVERY 6 HOURS NEEDED 05/02 completed Not Available Not Available Not Available disulfiram 250 mg tablet TAKE 1 TABLET BY MOUTH DAILY. STOP SERTRALIN E WHILE TAKING MEDICATIO N 10/06 completed Not Available Not Available Not Available lorazepam 0.5 mg tablet TAKE 1 TABLET BY MOUTH TWICE DAILY NEEDED 10/06 completed Not Available Not Available Not Available Proctozone- HC 2.5 % topical cream perineal applicator APPLY WITH APPLICATO R TO INNER AND OUTER RECTUM TWICE DAILY FOR NO MORE THAN 10 DAYS 07/05 completed Not Available Not Available Not Available cephalexin 500 mg capsule TAKE 1 CAPSULE BY MOUTH EVERY 8 HOURS FOR 10 DAYS 05/01 completed Not Available Not Available Not Available esomeprazol e magnesium 40 mg capsule,del ayed release Take 1 capsule every day by oral route in the morning. 08/16 completed Not Available Not Available Not Available buspirone 10 mg tablet Take 1 tablet every day by oral route. 10/11 completed Not Available Not Available Not Available sertraline 25 mg tablet Take 1 tablet every day by oral route. 07/05 completed Not Available Not Available Not Available testosteron e cypionate 200 mg/mL intramuscul ar oil INJECT 1.25ML (250MG) INTRAMUSC ULARLY WEEKLY DIRECTED active Not Available Not Available No t Available methylpredn isolone 4 mg tablets in a dose pack FOLLOW PACKAGE DIRECTION S 12/15 completed Not Available Not Available Not Available albuterol sulfate HFA 90 mcg/actuati on aerosol inhaler INHALE 2 PUFFS BY MOUTH FOUR TIMES DAILY NEEDED FOR SHORTNESS OF BREATH OR WHEEZING 10/06 completed Not Available Not Available Not Available SSD 1 % topical cream APPLY THICK LAYER TO LEFT LOWER LEG TWICE DAILY 04/28 completed Not Available Not Available Not Available fluticasone propionate 50 mcg/actuati on nasal spray,suspe nsion [place] 2 sprays every day by intranasa l route. active Not Available Not Available No t Available sertraline 50 mg tablet Take 1 tablet every day by oral route. active Not Available Not Available No t Available doxycycline hyclate 100 mg tablet Take 1 tablet twice a day by oral route. active Not Available Not Available No t Available oxycodone 5 mg tablet TAKE 1 TABLET BY MOUTH EVERY 8 HOURS NEEDED FOR PAIN 05/02 completed Not Available Not Available Not Available testosteron e 20.25 mg/1.25 gram per pump act.(1.62 %) transdermal gel APPLY 1 PUMP TO EACH SHOULDER DAILY 05/01 completed Not Available Not Available Not Available Vitals Date Recorded Body mass index (BMI) Body height Oxygen saturation Oxygen saturation in Arterial blood by Pulse oximetry Heart rate Body temperature Body weight Systolic blood pressure Diastolic blood pressure Provider Name and Address Organization Details Last Updated DateTime 2 21.7 kg/m2 190.5 cm 97 % 97 % 85 /min 97.1 [degF] 86085.0 7 g 162 mm[Hg] 98 mm[Hg] Not Available [facility] 3 22:06:07 Date Recorded Body height Body temperature Body mass index (BMI) Body weight Respiratory rate Oxygen saturation Oxygen saturation in Arterial blood by Pulse oximetry Heart rate Systolic blood pressure Diastolic blood pressure Provider Name and Address Organization Details Last Updated DateTime 3 190.5 cm 97.2 [degF] 22 kg/m2 98001.2 6 g 16 /min 97 % 97 % 83 /min 140 mm[Hg] 88 mm[Hg] CARLA Ordonez [facility] [employer] [facility] [facility] 3 16:06:14 Date Recorded Body height Body weight Body temperature Heart rate Oxygen saturation Oxygen saturation in Arterial blood by Pulse oximetry Systolic blood pressure Diastolic blood pressure Provider Name and Address Organization Details Last Updated DateTime 3 190.5 cm 47178.4 4 g 97.4 [degF] 78 /min 98 % 98 % 128 mm[Hg] 80 mm[Hg] Akiko Wiley RN [facility] 3 14:02:23 Date Recorded Body height Body weight Body temperature Heart rate Oxygen saturation Oxygen saturation in Arterial blood by Pulse oximetry Systolic blood pressure Diastolic blood pressure Provider Name and Address Organization Details Last Updated DateTime 3 190.5 cm 72452.6 6 g 97.6 [degF] 79 /min 98 % 98 % 150 mm[Hg] 90 mm[Hg] Akiko Wiley RN [facility] 3 14:46:55 Date Recorded Body mass index (BMI) Provider Name and Address Organization Details Last Updated DateTime 05/02/2023 21.9 kg/m2 KLEVER Boyle [address] [address], [place], [address], [place] [employer] [facility] 05/22/2023 22:14:29 Date Recorded Body height Body mass index (BMI) Body weight Provider Name and Address Organization Details Last Updated DateTime 05/30/2023 190.5 cm 21.2 kg/m2 62380.7 g CARLA Gonzalez [place] [employer] [facility] 05/30/2023 14:25:05 Date Recorded Systolic blood pressure Diastolic blood pressure Provider Name and Address Organization Details Last Updated DateTime 06/09/2022 140 mm[Hg] 90 mm[Hg] Not Available [facility] 0 09/27/2022 22:06:07 Social History Question Answer Notes LastModified by Organizat ion Details LastModified Time Tobacco Smoking Status Current Every Day Smoker Not Available [facility] 09/27/2022 22:05:24 What Is Your Level Of Alcohol Consumption? Occasional [id number].[id number] 2021 Information not available 09/27/2022 What Is Your Level Of Caffeine Consumption? Occasional MIGRATION.383597 6388 Information not available 09/27/2022 How Much Tobacco Do You Chew? None MIGRATION.062054 4910 Information not available 09/27/2022 In The 14 Days Before Symptom Onset, Have You Had Close Contact With A Laboratory-confir med COVID-19 While That Case Was Ill? No MIGRATION.907073 5829 Information not available 09/27/2022 In The 14 Days Before Symptom Onset, Have You Had Close Contact With A Person Who Is Under Investigation For COVID-19 While That Person Was Ill? No MIGRATION.385436 6911 Information not available 09/27/2022 Are You Currently Employed? Yes [email or web address] Information not available 10/05/2022 What Type Of Diet Are You Following? REGULAR MIGRATION.188196 1197 Information not available 09/27/2022 Which Illicit Or Recreational Drugs Have You Used? None MIGRATION.386753 2662 Information not available 09/27/2022 Do You Or Have You Ever Used E-cigarettes Or Vape? 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 No MIGRATION.658395 9951 Information not available 09/27/2022 Do You Use Insect Repellent Routinely? No MIGRATION.408895 1640 Information not available 09/27/2022 What Was The Date Of Your Most Recent Tobacco Screening? 05/30/2023 [email or web address] Information not available 05/30/2023 What Is Your Relationship Status? MIGRATION.017770 8040 Information not available 09/27/2022 Do You Use Your Seat Belt Or Car Seat Routinely? Yes MIGRATION.491685 2870 Information not available 09/27/2022 Do You Have Smoke And Carbon Monoxide Detectors In Your Home? Yes MIGRATION.844613 2958 Information not available 09/27/2022 Do You Or Have You Ever Used Smokeless Tobacco? Never Used Smokeless Tobacco MIGRATION.696145 9883 Information not available 09/27/2022 How Much Tobacco Do You Smoke? 2 PPD MIGRATION.551010 7209 Information not available 09/27/2022 Do You Use Any Illicit Or Recreational Drugs? No MIGRATION.713218 9654 Information not available 09/27/2022 Do You Use Sunscreen Routinely? Yes MIGRATION.050125 6951 Information not available 09/27/2022 Have You Recently Traveled Abroad? No MIGRATION.929050 6934 Information not available 09/27/2022 Do You Have Any Dietary Restrictions? No MIGRATION.330456 7107 Information not available 09/27/2022 Do You Or Have You Ever Used Any Other Forms Of Tobacco Or Nicotine? No MIGRATION.863248 1585 Information not available 09/27/2022 Sex: Unknown Functional Status Question Answer Note LastModified by [employer] Details LastModified Time What is your exercise level? Moderate MIGRATION.[id number] 6 Information not available 09/27/2022 Mental Status None recorded. Family History Relationship Description Onset Age of this Age Resolved Age Notes LastModified by Organization Details LastModified Time Father Hypertensive disorder [id number].166 [id number] Not available 09/27/2022 22:05:30 Mother Hypertensive disorder MIGRATION.126 [id number] Not available 09/27/2022 22:05:30 Medical History Condition Response NERVE DISEASE N BLINDNESS N RHEUMATIC FEVER N KIDNEY STONES N BLADDER PROBLEMS N OTHER # 1 N POLIO N LUNG DISEASE/DISORDER N RADIATION / CHEMOTHERAPY N COPD N Other # 2 N BLOOD DISEASES N SURGERY N EAR OR HEARING PROBLEMS N MUMPS N BOWEL PROBLEMS N DEPRESSION (INCLUDING POST ) N STROKE/TIA N ULCERS N BENIGN PROSTATIC HYPERPLASIA N MEASLES N MYOCARDIAL INFARCTION N OBESITY N GERD/NAUSEA N ANEURYSM N URINARY/BLADDER/KIDNEY PROBLEMS N INPATIENT PSYCH CARE N CORONARY ARTERY DISEASE (CAD) N ADDICTION CONCERNS N Impotence N ENDOMETRIOSIS N USE OF BLOOD THINNERS N SKIN PROBLEMS N GASTROINTESTINAL DISORDER N PERIPHERAL VASCULAR DISEASE N MUSCLE,JOINT OR BONE PROBLEMS N GASTROINTESTINAL BLEEDING N BLOOD CLOTS N ASTHMA N CATARACTS N ERECTILE DYSFUNCTION N VARICOSITIES N GI PROBLEMS N Low Testosterone N INFERTILITY N AIDS/HIV N LIVER DISEASE N MALE HYPOGONADISM N HYPERTENSION N Deficiency N ANXIETY DISORDER Y BLOOD TRANSFUSION N ANEMIA/BLOOD DISORDER N CHRONIC EAR INFECTIONS N BRONCHITIS N TUBERCULOSIS N GLAUCOMA N FOOT PROBLEM N DIVERTICULITIS N SLEEP APNEA N CHICKENPOX N INFECTIOUS DISEASE N PROSTATE N HEART ARRHYTHMIA N INSOMNIA N HIGH CHOLESTEROL / HYPERLIPIDEMIA N EYE PROBLEMS N HYPERTHYROIDISM N NEUROLOGICAL PROBLEMS N EDEMA N CHRONIC PAIN SYNDROME N HYPOTHYROIDISM N CONSTIPATION N CAROTID BLOCKAGE N BACK / NECK PROBLEMS Y HAVE YOU BEEN HOSPITALIZED OR SEEN IN [facility] IN THE PAST YEAR ? N ATHEROSCLEROSIS N BREAST PROBLEMS N DIALYSIS N ECZEMA N OSTEOPOROSIS N ARTHRITIS N NO SIGNIFICANT PAST MEDICAL HISTORY N APPENDICITIS N DIABETES, TYPE N BAD TEETH N ENT N HEARTBURN / REFLUX N AUTISM SPECTRUM DISORDER (ASD) N HEPATITIS / LIVER DISEASE N PULMONARY DISEASE N GOUT N SLEEP DISORDER N ALZHEIMER'S DISEASE N Brain Problems N DEMENTIA N HERPES N SEIZURES/EPILEPSY N HEADACHES/MIGRAINES N VASCULAR DISEASE N PACEMAKER N Blood Disorder N DIZZINESS N HEART DISEASE/HEART PROBLEMS N KIDNEY DISEASE N MULTIPLE SCLEROSIS N CANCER: SPECIFY N CARDIAC ARRHYTHMIA N ANESTHESIA COMPLICATIONS N ATRIAL FIBRILLATION N Gall Stones N PULMONARY EMBOLISM N AUTOIMMUNE DISEASE N Past Encounters Encounter ID Performer Location Encounter Start Date Encounter Closed Date Diagnosis/Indication Diagnosis SNOMED-CT Code Diagnosis ICD10 Code Diagnosis Note [id number] [facility] [address] [address], [address] [place] [address] 10/11/2020 00:00:00 10/27/2020 11:43:15 [id number] [facility] [address] [address], [address] [place] [address] 07/05/2021 00:00:00 07/28/2021 12:44:34 [id number] [facility] [address] [facility] [address] [place] [address] 08/16/2021 00:00:00 08/16/2021 15:44:23 [id number] [facility] [address] [address], [address] [place] [address] 02/23/2022 00:00:00 02/23/2022 22:48:20 [id number] [facility] [address] [address], [address] [place] [address] 04/28/2022 00:00:00 04/28/2022 15:58:03 [id number] [facility] [address] [place] [address] 05/22/2022 00:00:00 05/27/2022 14:51:41 [id number] [facility] [address] [place] [address] 06/09/2022 00:00:00 06/28/2022 19:24:40 [id number] KLEVER Boyle [facility] [address] [place] [address] 10/06/2022 15:57:54 10/06/2022 16:35:29 Acute gingivitis 39611420 K05.00 start clindamyci n 300mg qid. Submental lymphadenopathy 150397422 R59.0 related to above findings. [id number] KLEVER Boyle [facility] [address] [place] [address] 11/22/2022 13:56:14 11/22/2022 14:23:19 Long-term drug therapy 888972681 Z79.899 pt needs repeat CBC and CMP completed for post hospital stay. Abscess of scrotum 26205 006 N49.2 following post hospital with urology, saw them today . open I&D area being packed and healing well. f/u appts planned. [id number] KLEVER Boyle [facility] [address] [place] [address] 05/02/2023 14:42:14 05/02/2023 15:21:38 Generalized anxiety disorder 21470267 F41.1 stable on sertraline 100mg daily therapy. Synovial c yst of left knee 3851917674 28287 M71.22 refer for u/s popliteal fossa left knee. suspect taylor's cyst , larger size. [id number] Luisa Cope, CLEO [facility] [address] [place] [address] 05/30/2023 14:16:18 05/30/2023 14:47:36 Pain of left knee joint 0129853653 21323 M25.562 Health Concerns Section Related Observation LastModified by Organization Detai ls LastModified Time None Recorded Concern Status LastModified by Organization Details LastModified Time None Recorded Advance Directives Directive None Recorded Payers Encounter Date Sequence Insurance Name Policy Number Policy Melvin Covered Member ID Melvin Member ID Guarantor Name 10/06/2022 1 [place] [id number] Wisam Jaylyn [id number] SM Wisam Jaylyn 11/22/2022 1 [place] [id number] Wisam Jaylyn [id number] SM Wisam Jaylyn 05/02/2023 1 [place] [id number] Wisam Jaylyn [id number] SM Wisam Jaylyn 05/30/2023 1 [place] [id number] 0 Wisam Jaylyn [id number] SM Wisam Jaylyn Notes Date Note Type Note Provider Name and Address Organization Details Recorded Time 06/09/2022 text/html Generic HPI TemplateReported bypatient.Notes:Pt is here to f/u on the meds he started for alcohol dependence, has been taking clonidine only. Pt has not started [employer]. . Not Available [employer] 06/28/2022 19:24:40 10/06/2022 text/html Generic HPI TemplateReported bypatient.Location:[facility] Quality:hard lump Severity:sore Duration:constant Onset/Timing:noticed it this morning Context:unknown Aggravating factors:touching it Associated Symptoms:gums tender as well and front toothache KLEVER Boyle [address] [facility] [address], [place], [address], [employer] 10/27/2022 17:35:24 11/22/2022 text/html pt is here for h osp f/u from 11/13pt had a vasectomy in late september and went to the er on 11/13 for c/o right testicle pain, found to have scrotal abscess requiring I&D in the O.R. followed up with urology today. He had IV abx in the hospital during hospital stay.pt states he feels fine today, pain is gone KLEVER Boyle [address], [place], [address], [employer] 11/22/2022 17:32:34 05/02/2023 text/html Knee SwellingRep orted bypatient.Location:le ft; posterior Severity:mild Duration:1 weeks Aggravating Factors:sitting; standing Associated Symptoms:no weakness; no numbness; no tingling; no redness; no warmth; no ecchymosis; no catching/locking; no popping/clicking; no buckling; no grinding; no instability; no radiation down leg; no drainage; no fever; no chills; no weight loss; no change in bowel/bladder habits Previous Surgery:none Prior Imaging:none Previous PT:none Previous Injections:none Work Related:no Work Level:no; regular duty Sport Level:unrestricted knot located on backside of left knee KLEVER Boyle [address], [place], [address], [employer] 05/22/2023 22:17:24
--- OUTSIDE RECORDS SUMMARY | 2024-08-21 21:39 | XMS_ITS | Encounter Summary ---
Author Organization [facility] Address [facility] [facility]. [place], [place] [id number] [place] [id number] Care Team Providers Care Metal Baler Name Role Phone Unavailable Primary Care Provider Unavailabl e Encounter Details Date Type Department Care Team (Late st Contact Info) Description 07/18/2019 Therapy Plan [facility] [place] [address] Ivory [place], [place] [address] Social History Tobacco Use Types Packs/Day Years Used Date Smoking Tobacco: Never Assessed Sex and Gender Information Value Date Recorded Sex Assigned at Not on file Legal Sex Male 3:16 PM CDT Gender Identity Not on file Sexual Orientation Not on file documented as of this encounter Plan of Treatment Not on file documented as of this encounter Visit Diagnoses Not on filedocumented in this encounter
== END 2024-08-20 08:09 | disposition home or self-care (01) ==
PROVIDERS: PCP Physician Assistant; Visit Provider Physician Assistant
DX: R59.0 Localized enlarged lymph nodes (principal)
CPT/HCPCS: 70491; Q9967

== ENCOUNTER 2024-12-24 17:06 | Emergency (ER) | payer BC, SELFPAY ==
--- NOTE | ~2024-12-24 | US_ITS ---
TESTICULAR ULTRASOUND (Doppler ultrasound interrogation techniques used as needed for this exam.) Ordering provider: Beatriz Mcneal PA-C History: . testicular pain . Comparison: None. FINDINGS: TESTICLES: Normal in size. The right measures 5x 2.2x 2.9 cm and the left measures 4.9x 2.5x 2.8 cm. Normal echogenicity bilaterally without mass lesion. Normal Doppler flow bilaterally. EPIDIDYMIDES: Normal in size. The right measures 1.1 cm and the left 1.1 cm. Complex echogenicity of the right epididymal tail. Both demonstrate normal Doppler flow. HYDROCELE: Small and septated. VARICOCELE: None. OTHER ABNORMALITY: None seen. IMPRESSION: Small right hydrocele with septations which may indicate infection. Further evaluation advised. Abnormal echogenicity of the right epididymis is suggestive of epididymitis. Otherwise, normal testic ular ultrasound. Reviewed, dictated and finalized at location A. IMPRESSION: Small right hydrocele with septations which may indicate infection. Further isak luation advised. Abnormal echogenicity of the right epididymis is suggestive of epididymitis. Ot herwise, normal testicular ultrasound.
--- OUTSIDE RECORDS SUMMARY | 2024-12-24 17:08 | XMS_ITS | Continuity of Care Document ---
[facility] Address [address] [place] [address] Phone Care Team Providers Care Stabber Name Role Phone Conversion MD, Doctor Unavailable Unavailabl e Medications Medication Instructions Dosage Effective Dates (start - stop) Status Comments ZYRTEC 10MG TABS 1 QD - Active EPIPEN 0.3MG SYRINGES 1 DIRECTE - A ctive Advance Directives Directive Yes / No Effective Date File Name No Information Encounters Encounter Description Practice Location Reason(s) For Visit Diagnoses Date Provider Providers Copied on [facility], [address], [place], [place], [id number], [place] tel:[phone] Conversion Department No Information 1 Conversion Doctor. [facility] [place], [address], . Family History Family Member Type Diagnosis Age At Onset No Information Payers Payer name Insurance type Covered republican ID Authoriza tion(s) No Information Social History Type Description Quantity Date Captured Comments Sex Male Smoking Status No Information Sexual Orientation Straight or heterosexual Chief Complaint And Reason For Visit No [...]
--- OUTSIDE RECORDS SUMMARY | 2024-12-24 17:09 | XMS_ITS | Clinical Summary ---
Author Organization [facility] Address [address] [place] [address] Care Team Providers Care Chemical Radiation Technician Name Role Phone Sara Maldonado Primary Care Pr ovider Source Comments [facility],non-owned Affiliates and Associated Physician Practices is amultiple site organization consisting of ambulatory clinics and hospital sitesin [place], [place], [place] and [place]. This disclosure is being madepursuant to the Care Everywhere program and may not contain all information available regarding this patient. Last updated 18.[facility] Allergies No known active allergies Medications * Be aware that medications may not be up to date on this document. Alwaysverify current medications with the patient. sertraline (Zoloft) 100 MG tablet Take 1 (one) tablet by mouth once daily 3 Active fluticasone propionate (Flonase) 50 MCG/ACT nasal sprayIndications :Seasonal allergic rhinitis, unspecified trigger [place] 2 (two) sprays into each nostril once daily 48 g 4 3 Active azelastine (Astelin) 0.1 % nasal sprayIndications :Seasonal allergic rhinitis, unspecified trigger [place] 1 (one) spray to 2 (two) sprays into each nostril 2 times daily Aim tip of spray bottle towards the SAME EYE as the nostril you are spraying in (e.g. 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 Gender Identity Not on file Sexual Orientation Not on file Last Filed Vital Signs Vital Sign Reading Time Taken Comments Blood Pressure 165/100 06/07/2023 3:12 PM CRUTCH MAKER Pulse 82 06/07/2023 3:12 PM CRUTCH MAKER Temperature - - Respiratory Rate - - Oxygen Saturation 94% 05/17/2023 9:00 AM CDT Inhaled Oxygen Concentration - - Weight 79.4 kg (175 lb) 06/07/2023 3:12 PM CRUTCH MAKER Height 190.5 cm (6' 3) 06/07/2023 3:12 PM CRUTCH MAKER Body Mass Index 21.87 06/07/2023 3:12 PM CRUTCH MAKER Plan of Treatment Health Maintenance Due Date Last Done Comments HIV SCREENING 2001 HEPATITIS C SCREENING 11/16/2004 DTAP/TDAP/TD VACCINES (1 - Tdap) 2005 HEPATITIS B VACCINE (1 of 3 - 19+ 3-dose series) 2005 PNEUMOCOCCAL VACCINE (1 of 2 - PCV) 2005 COVID-19 VACCINE (1 - 2023-2 5 season) 2024 DEPRESSION SCREENING 07/30/2024 INFLUENZA VACCINE (Season Ended) 2025 ZOSTER VACCINE (1 of 2) 2036 HIB VACCINE Aged Out No longer eligi ble based on patient's age to complete this topic HPV VACCINE Aged Out No longer eligi ble based on patient's age to complete this topic MENINGOCOCCAL (Group B) VACC INE SHARED DECISION-MAKING Aged Out No longer eligibl e based on patient's age to complete this topic MENINGOCOCCAL GROUPS A/C/Y/W VACCINE Aged Out No longer eligible b ased on patient's age to complete this topic Insurance [employer] MEDICAID LIMITED BENEFIT - [place] [facility] BCBS/BLUE BLUE CROSS BLUE SHIELD [place] SELF PAY NO INSURANCE Member Subscriber Plan / Payer (Ef fective for All Dates) Name:Sharon De La O Member ID:Not on file Relation to Subscriber:Not on file Name:SHARON DE LA O Subscriber ID:Not on file (Home) Address: [address] [place] [id number] Payer ID:Not on file Group ID:Not on file Type:Self Pay Address: [place], [place] Care Teams Chemical Radiation Technician Relationship Specialty Start Date End Date Sara Maldonado PA [address] [place] [address] PCP - General 06/13/22
--- OUTSIDE RECORDS SUMMARY | 2024-12-24 17:09 | XMS_ITS | Data Portability ---
Author Organization [facility] Address [address] [place] [address] Care Team Providers Care Land Survey Technician Name Role Phone SARA JONES Primary Care Provider Unavailab le Assessment No assessment recorded. Plan of Treatment Reminders Order Date Submit Date Provider Last Modified By Organization Details Last Modified Time Details Appointments ANY 15 2024 03:00P M KLEVER Boyle Not available Not available Not available Lab urinalysi s complete, reflex culture 2023 024 [email or web address] [facility], [address], [place], [address], 12/18/2024 10:00:07 CMP, serum or plasma 2023 024 beckie [facility], [address], [address] [address], [place], [address], 10/29/2024 10:51:39 iron + TIBC + ferritin, serum 2023 024 [email or web address] [facility], [address], [place], [address], 11/14/2024 12:54:02 CBC w/ auto diff 2023 024 [email or web address] [facility], [address], [place], [address], 11/14/2024 12:54:03 lipase, serum or plasma 2023 024 [email or web address] [facility], [address], [place], [address], 04/10/2024 17:10:44 amylase, serum or plasma 2023 024 [email or web address] [facility], [address], [place], [address], 04/10/2024 17:10:54 CBC w/ auto diff 2023 024 [email or web address] [facility], [address], [place], [address], 04/17/2024 17:25:33 CMP, serum or plasma 2023 024 [email or web address] [facility], [address], [place], [address], 04/17/2024 17:25:34 iron + TIBC + ferritin, serum 2023 024 GUERRERO [facility], [address], [place], [address], 04/04/2024 09:40:42 amylase, serum or plasma 2023 024 [email or web address] [facility], [address], [place], [address], 02/27/2024 09:35:37 lipase, serum or plasma 2023 024 [email or web address] [facility], [address], [place], [address], 02/27/2024 09:35:37 CMP, serum or plasma 2023 024 [email or web address] [facility], [address], [place], [address], 02/27/2024 09:35:37 CBC w/ auto diff 2023 024 [email or web address] [facility], [address], [place], [address], 02/27/2024 09:35:36 iron + TIBC + ferritin, serum 2023 024 [email or web address] [facility], [address], [place], [address], 03/12/2024 09:04:44 vitamin B12 + folate, serum or blood 2023 024 [facility], [address], [place], [address], 03/12/2024 09:04:44 TSH + free T4, serum 2023 024 [facility], [address], [place], [address], 01/15/2024 12:30:36 CBC w/ auto diff 2023 024 [facility], [address], [address], [place], [address], 01/15/2024 12:31:55 CMP, serum or plasma 2023 024 [facility], [address], [address], [place], [address], 01/15/2024 12:31:43 vitamin B12 + folate, serum or blood 2023 024 [facility], [address], [address], [place], [address], 01/15/2024 12:31:31 lipid panel, serum 2023 024 [facility], [address], [address], [place], [address], 01/15/2024 12:31:20 HbA1c (hemoglob in A1c), blood 2023 024 [facility], [address], [address], [place], [address], 01/15/2024 12:31:07 Referral urologist referral 2023 024 [place] [facility], [address], [address], [place], [address], 09/22/2024 15:10:29 Procedures upper endoscopy (EGD) with diagnosti c colonosco py (PROC) - patient high suspiciou s for PUD, now with anemia, abdominal pain, known reflux, also some blood in stools. 2023 024 [facility], [address], [address], [place], [address], 04/22/2024 12:35:57 Surgeries None recorded. Imaging CT, neck, soft tissue, w/ contrast 2023 024 [facility], [address], [place], [address], 08/20/2024 12:42:46 XR, chest, 2 view 2023 024 [email or web address] [facility], [address], [address], [place], [address], 04/10/2024 12:05:09 XR, ribs, unilatera l 2023 024 [facility], [address], [address], [place], [address], 04/03/2024 08:26:02 Medication Orders amoxicill in 875 mg-potass ium clavulana te 125 mg tablet 2023 025 [place] [facility], [address], [place], [place], [id number], 12/17/2024 16:03:03 losartan 50 mg tablet 2023 024 [place] [facility], [address], [place], [place], [id number], 06/18/2024 16:27:15 amlodipin e 10 mg tablet [address] [facility] #96665, [address] [facility], [place], [place], [id number], 04/01/2024 17:33:12 sertralin e 100 mg tablet [address] [facility] #03319, [address], [place], [place], [id number], 12/26/2023 16:55:21 omeprazol e 40 mg capsule,d elayed release [address] [facility] #29085, [address], [place], [place], [id number], 12/17/2024 16:29:12 amlodipin e 5 mg tablet [address] [facility] #78096, [address], [place], [place], [id number], 04/06/2024 22:37:38 Patient TargetsNo targets recorded. Patient InstructionsNo instructions recorded. Reason for Referral Urologist Referral for Urina ry incontinence Referring Physician: Sara Jones, Internal Medicine, Encounter Date: 06/18/2024 Results Created Date Observation Date Name Description Value Unit Range Abnormal Flag Note LastModifiedBy Organization Detail LastModifiedTime 02/02/2002/01/2024 US, abdom en, compl ete No observ ation record ed. [address], [address], 02/03/2024 14:40:31 02/04/20 24 02/01/2024 CT, abdom en + pelvi s, w/ contr ast No observ ation record ed. [email or web address] [facility] [address], [place], [address], 02/07/2024 23:44:40 07/02/15/2024 US, abdom en, compl ete No observ ation record ed. [address], [place], [address], 02/20/2024 14:36:53 04/03/20 24 04/02/2024 XR, ribs, unila teral No observ ation record ed. [address], [place], [address], 04/10/2024 12:05:05 04/03/20 24 04/03/2024 CT, abdom en + pelvi s, w/ contr ast No observ ation record ed. [address], [place], [address], 06/29/2024 18:31:22 07/11/20 24 07/11/2024 CT, abdom en + pelvi s, w/o contr ast No observ ation record ed. [address], [place], [address], 07/11/2024 13:27:45 08/20/19 25 08/20/2024 CT, neck, soft tissu e, w/ contr ast No observ ation record ed. [address], [place], [address], 08/27/2024 14:28:34 Result Notes None recorded. Problems Name Problem SNOMED Code Status Onset Date Resolution Date Notes Provider Name and Address Organization Details Recorded Time Long-term drug therapy Active 2023 KLEVER Boyle Attn: Oz lopez,[address] [facility], [place], [address], [place] [facility] 4 09:20:40 Obstructive sleep apnea syndrome 34616503 Active 2023 KLEVER Boyle Attn: Oz lopez,[address] [facility], [place], [address], [place] [facility] 4 09:23:32 Gastroesophage al reflux disease without esophagitis 588996739 Active 2023 KLEVER Boyle Attn: Accountin g,[address] [facility], [place], [address], [place] [facility] 4 09:23:42 Benign essential hypertension 1237756 Active 2023 KLEVER Boyle Attn: Accountin g,[address] [facility], [place], [address], [place] [facility] 4 09:23:43 Generalized anxiety disorder 56480808 Active 2023 KLEVER Boyle Attn: Accountin g,[address] [facility], [place], [address], [place] [facility] 4 09:24:29 Body mass index 20-24 - normal 491185913 Active 2023 KLEVER Boyle Attn: Accountin g,[address] [place], [address], [place] [facility] 4 23:21:15 Gastro-esophag eal reflux disease with esophagitis 537775582 Active 2023 KLEVER Boyle Attn: Accountin g,[address] [facility], [place], [address], [place] [facility] 4 23:21:51 Upper abdominal pain 58868882 Active 2023 KLEVER Boyle Attn: Accountin g,[address] [facility], [place], [address], [place] [facility] 4 23:21:52 Anemia 399702245 Active 2023 KLEVER Boyle Attn: Accountin g,[address] [place], [address], [place] [facility] 4 23:21:53 Alcoholism 5295655 Active 2023 KLEVER Boyle Attn: Accountin g,[address] [place], [address], [place] [facility] 4 23:22:44 Urinary incontinence 061826043 Active 2023 KLEVER Boyle Attn: Oz lopez,[address], [place], [address], [facility] - [facility] 4 18:33:56 Problem Notes None recorded. Procedures Surgical History Date Name Laterality Status Provider Name and Address Organization Details Recorded Time Eye Surgery completed Jennie Hurtado MA [facility] 12/27/2023 09:07:39 Tonsillectomy completed Jennie Hurtado MA [facility] 12/27/2023 09:07:45 Vasectomy completed Jennie Hurtado MA [facility] 12/27/2023 09:07:51 Imaging Results None recorded. Procedure Notes None recorded. Medical Equipment None Reported. Allergies No known drug allergies Medications Name Sig Start Date Stop Date Status Note LastModified by Organization Details LastModified Time enclomiphen e cit 25mg #501309 tablets 12/25 completed Not Available Not Available Not Available losartan 50 mg tablet Take 1 tablet every day by oral route at dinner. 2024 active Not Available Not Available Not Avai lable oxybutynin chloride ER 15 mg tablet,exte nded release 24 hr TAKE 1 TABLET BY MOUTH DAILY active Not Available Not Available No t Available doxycycline hyclate 100 mg capsule Take 1 capsule twice a day by oral route with meal(s). 12/17 completed Not Available Not Available Not Available hydrocodone 5 mg-acetamin ophen 325 mg tablet TAKE 1 TABLET BY MOUTH EVERY 8 HOURS NEEDED FOR PAIN 06/18 completed Not Available Not Available Not Available famotidine 40 mg tablet TAKE 1 TABLET BY MOUTH EVERY DAY AT DINNER 12/17 completed Not Available Not Available Not Available prednisone 20 mg tablet TAKE 2 TABLETS BY MOUTH DAILY 02/19 completed Not Available Not Available Not Available sertraline 100 mg tablet Take 1 tablet every day by oral route. 2024 active Not Available Not Available Not Avai lable amlodipine 2.5 mg tablet TAKE 1 TABLET BY MOUTH DAILY 12/25 completed Not Available Not Available Not Available amlodipine 5 mg tablet TAKE 1 TABLET BY MOUTH EVERY DAY 04/06 completed Not Available Not Available Not Available omeprazole 40 mg capsule,del ayed release TAKE 1 CAPSULE BY MOUTH EVERY DAY IN THE MORNING 12/17 completed Not Available Not Available Not Available [...] Available Not Available amlodipine 10 mg tablet Take 1 tablet every day by oral route. 2024 active Not Available Not Available Not Avai lable cephalexin 500 mg capsule TAKE 1 CAPSULE BY MOUTH EVERY 8 HOURS FOR 10 DAYS 12/25 completed Not Available Not Available Not Available pantoprazol e 40 mg tablet,barbara yed release Take 1 tablet every day by oral route. 2024 active Not Available Not Available Not Avai lable oseltamivir 75 mg capsule TAKE 1 CAPSULE BY MOUTH TWICE DAILY 12/17 completed Not Available Not Available Not Available [...] 875 mg-potassiu m clavulanate 125 mg tablet TAKE 1 TABLET BY MOUTH EVERY 12 HOURS FOR TOOTH PAIN 02/19 completed Not Available Not Available Not Available oxycodone 5 mg tablet TAKE 1 TABLET BY MOUTH EVERY 8 HOURS NEEDED FOR PAIN 12/25 completed Not Available Not Available Not Available Vitals Date Recorded Systolic blood pressure Diastolic blood pressure Provider Name and Address Organization Details Last Updated DateTime 12/17/2024 150 mm[Hg] 90 mm[Hg] KLEVER Boyle Attn: Accounting, [place], [address], [facility] 12/17/2024 16:24:36 Date Recorded Body height Body mass index (BMI) Body weight Respiratory rate Oxygen saturation Oxygen saturation in Arterial blood by Pulse oximetry Heart rate Systolic blood pressure Diastolic blood pressure Provider Name and Address Organization Details Last Updated DateTime 5 190.5 cm 23.2 kg/m2 42220.1 8 g 18 /min 96 % 96 % 90 /min 160 mm[Hg] 88 mm[Hg] Jennie Hurtado MA [facility] 5 16:04:38 Date Recorded Systolic blood pressure Diastolic blood pressure Systolic blood pressure Diastolic blood pressure Provider Name and Address Organization Details Last Updated DateTime 12/26/2023 150 mm[Hg] 90 mm[Hg] 160 mm[Hg] 90 mm[Hg] KLEVER Boyle Attn: Accounting ,[address] [place], [address] , [facility] 4 16:56:16 Date Recorded Body height Respiratory rate Body mass index (BMI) Body weight Heart rate Oxygen saturation Oxygen saturation in Arterial blood by Pulse oximetry Systolic blood pressure Diastolic blood pressure Provider Name and Address Organization Details Last Updated DateTime 4 190.5 cm 18 /min 16.6 kg/m2 98591.1 4 g 80 /min 98 % 98 % 150 mm[Hg] 98 mm[Hg] Jennie Hurtado MA [facility] 4 16:33:47 Date Recorded Systolic blood pressure Diastolic blood pressure Systolic blood pressure Diastolic blood pressure Provider Name and Address Organization Details Last Updated DateTime 02/20/2024 140 mm[Hg] 90 mm[Hg] 134 mm[Hg] 90 mm[Hg] KLEVER Boyle Attn: Accounting ,[address] [place], [address] , [facility] 4 11:29:13 Date Recorded Body height Body mass index (BMI) Body weight Respiratory rate Oxygen saturation Oxygen saturation in Arterial blood by Pulse oximetry Heart rate Systolic blood pressure Diastolic blood pressure Provider Name and Address Organization Details Last Updated DateTime 4 190.5 cm 22.4 kg/m2 15989.1 8 g 18 /min 97 % 97 % 85 /min 162 mm[Hg] 92 mm[Hg] Jennie Hurtado MA [facility] 4 11:10:02 Date Recorded Body height Respiratory rate Oxygen saturation Oxygen saturation in Arterial blood by Pulse oximetry Heart rate Systolic blood pressure Diastolic blood pressure Provider Name and Address Organization Details Last Updated DateTime 4 190.5 cm 18 /min 98 % 98 % 78 /min 160 mm[Hg] 90 mm[Hg] Jennie Hurtado MA [facility] 4 17:09:44 Date Recorded Systolic blood pressure Diastolic blood pressure Systolic blood pressure Diastolic blood pressure Provider Name and Address Organization Details Last Updated DateTime 06/18/2024 140 mm[Hg] 80 mm[Hg] 140 mm[Hg] 90 mm[Hg] KLEVER Boyle Attn: Accounting ,[address] [place], [address] , [facility] 4 16:20:55 Date Recorded Body height Body mass index (BMI) Body weight Respiratory rate Oxygen saturation Oxygen saturation in Arterial blood by Pulse oximetry Heart rate Systolic blood pressure Diastolic blood pressure Provider Name and Address Organization Details Last Updated DateTime 4 190.5 cm 24.5 kg/m2 09476.1 g 18 /min 97 % 97 % 84 /min 160 mm[Hg] 88 mm[Hg] Jennie Hurtado MA [facility] 4 15:58:30 Social History Question Answer Notes LastModified by Organizat ion Details LastModified Time Tobacco Smoking Status Current Every Day Smoker Jennie Hurtado MA null, [facility] 12/26/2023 16:31:10 Are You Blind Or Do You Have Difficulty Seeing? No Information n ot available 12/26/2023 What Is Your Level Of Caffeine Consumption? Moderate Information not available 12/26/2023 In The 14 Days Before Symptom Onset, Have You Had Close Contact With A Laboratory-confirm ed COVID-19 While That Case Was Ill? No Information n ot available 12/26/2023 In The 14 Days Before Symptom Onset, Have You Had Close Contact With A Person Who Is Under Investigation For COVID-19 While That Person Was Ill? No Information not available 12/26/2023 Have You Been To An Area Known To Be High Risk For COVID-19? No Information not available 12/26/2023 Are You Deaf Or Do You Have Serious Difficulty Hearing? No Information not available 12/26/2023 What Type Of Diet Are You Following? REGULAR Information n ot available 12/26/2023 Are There Any Guns Present In Your Home? No Information not available 12/26/2023 What Was The Date Of Your Most Recent Tobacco Screening? 12/17/2024 Information not available 12/17/2024 What Is Your Current Pack Years? 10-19packyear s Information not available 12/26/2023 What Is Your [...] What Date Was Tobacco Cessation Counseling Provided? 12/17/2024 Information not available 12/17/2024 Sex: Male Functional Status Question Answer Note LastModified by Organizat ion Details LastModified Time Do you use any illicit or recreational drugs? No Information not available 12/26/2023 Do you or have you ever used any other forms of tobacco or nicotine? No Information not available 12/26/2023 What is your level of alcohol consumption? Occasional Information not available 12/26/2023 Are you currently employed? Yes Information not available 12/26/2023 Are you able to care for yourself? Yes Information n ot available 12/26/2023 What is your exercise level? Occasional Information not available 12/26/2023 Mental Status None recorded. Family History Relationship Description Onset Age of this Age Resolved Age Notes LastModified by Organization Details LastModified Time Mother Hypertensive disorder [email or web address] Not available 2023 09:08:02 Medical History Condition Response Coronary Artery Disease N Other N Atrial Fibrillation N High Blood Pressure N Depression N COPD N Blood Clots N Anxiety Disorder Y Muscle, Joint, or Bone Problems N Acid Reflux (GERD) N Cancer N Stroke N Headaches N Kidney or Bladder Problems N Skin Problems N Asthma N Allergies N Hepatitis N High Cholesterol N Liver Disease N Thyroid Problems N GI Problems N Anemia N Heart Attack (OR) N Diabetes N Seizures/Epilepsy N Heart Failure N Osteoporosis N Immunizations Vaccine Type Date Status Note Provider Nam e and Address Organization Details Recorded Time MMR 03/13/1992 completed Jennie Hurt[place], [place] [facility] 06/17/2024 14:43:56 Tdap 01/20/2022 completed Jennie H[place] [facility] 06/17/2024 14:43:56 Tdap 02/20/2017 completed Jennie Hurt[place] [facility] 06/17/2024 14:43:56 DTP 03/13/1992 completed Jennie Hurt[place] [facility] 06/17/2024 14:43:56 OPV 03/13/1992 eugenie [place] [facility] 06/17/2024 14:43:56 Hep B, adolescent or pediatric 08/28/1996 eugenie [place] [facility] 06/17/2024 14:43:56 Hep B, adolescent or pediatric 12/18/1996 eugenie [place] [facility] 06/17/2024 14:43:56 Hep B, adolescent or pediatric 07/10/1996 eugenie [place] [facility] 06/17/2024 14:43:56 Past Encounters Encounter ID Performer Location Encounter Start Date Encounter Closed Date Diagnosis/Indication Diagnosis SNOMED-CT Code Diagnosis ICD10 Code Diagnosis Note [id number] Brenton Hooker MD [facility] [address] [place] [address] 12/26/2023 16:23:37 12/31/2023 15:17:32 Adult health examination 117562224 Z00.01 annual wellness completed Generalize d anxiety disorder 73052641 F41.1 Refill sertraline 100mg daily. patient reports feeling stable on this dosing. Long-term drug therapy 702261408 Z79.899 cmp, cbc and b12, folate labs are due Gastroesop hageal reflux disease without esophagitis 567363760 K21.9 Refill omeprazole 40mg daily. Cholesterol screening 27 7389119 Z13.220 fasting lipids due Diabetes m ellitus screening 448496595 Z13.1 a1c screening due Thyroid di sorder screening 043476415 Z13.29 annual thyroid labs dure Benign ess ential hypertension 4245450 I10 BP is 160/90 range. He is aware that drinking alcohol is the biggest contributo r to high BP for him. He will need to start amlodipine 5mg daily. Obstructiv e sleep apnea syndrome 40380461 G47.33 pt has difficulty keeping cpap on at night due to navigating to stomach in middle of night. Encouraged patient to try sleep position training and melatonin or tylenol PM to help him rest in back position for a while. [id number] Brenton Hooker MD [facility] [address] [place] [address] 02/20/2024 10:43:23 02/20/2024 11:52:04 Body mass index 20-24 - normal 943661755 Z68.22 BMI is 22.4 Anemia 403560010 D64.9 Patient has new anemia of the last 2 sets of labs recently accompanie d with upper abdominal pain and acid reflux and underlying alcohol dependence . Refer patient for upper endoscopy and diagnostic colonoscop y. He is also due for repeat CBC, iron studies and B12/folic acid. Gastro-eso phageal reflux disease with esophagitis 142890654 K21.00 Continue omeprazole 40 mg daily in the morning and famotidine 40 mg at dinner Upper abdominal pain 831 [address]222 R10.10 Repeat amylase and lipase and CMP Occult blo od detected in feces 18125640 R19.5 Patient has blood in the stool. Colonoscop y is ordered as above under anemia diagnosis Alcoholism 1968086 F10.2 0 History noted. Long discussion with patient today again about decreasing his daily intake of beer. [id number] Brenton Hooker MD [facility] [address] [employer] [place] [address] 04/01/2024 16:43:41 04/02/2024 14:16:14 Costal chondritis 07900241 M94.0 Diagnostic s ordered as above, patient can not take NSAID therapy at this time with betito thorne pending results for EGD. He can take Tylenol 1000 mg 3 times daily for his left upper quadrant pain Left upper quadrant pain 684200626 R10.12 Repeat lipase, amylase, CBC and CMP Costal mar gin chest pain 293866707 R07.81 Check chest x-ray and left-sided rib x-rays Anemia 345130618 D64.9 Check updated iron studies and continue with plans for EGD and colonoscop y next week Benign ess ential hypertension 8104597 I10 Blood pressure is 160/90 today. boost to 10mg daily amlodipine [id number] Brenton Hooker MD [facility] [address] [place] [address] 06/18/2024 15:44:56 06/18/2024 16:31:28 Generalized anxiety disorder 23399749 F41.1 Stable on sertraline 100mg daily. patient reports feeling stable on this dosing. Benign ess ential hypertension 6329812 I10 Patient's blood pressure is at 140/90 which is now a couple of visits where he has been running at this upper limit just above normal. We are going to start low-dose losartan 50 mg daily to accompany the amlodipine 10 mg daily that he has already been on. Gastroesop hageal reflux disease without esophagitis 933720115 K21.9 For reflux management will have him continue omeprazole 40 mg daily and famotidine 40 mg with dinner. Obstructiv e sleep apnea syndrome 92570459 G47.33 pt has difficulty keeping cpap on at night due and not using. Encouraged patient to try sleep position training and melatonin or tylenol PM to help him rest in back position for a while. Long-term drug therapy 037745718 Z79.899 Complete metabolic panel is ordered for lab assessment Anemia 246304957 D64.9 Colonoscop y showed few diverticul a sigmoid colon a 4 mm polyp in the sigmoid that was removed no colitis no AVM, few medium-siz ed internal hemorrhoid s which were not bleeding. Repeat in 5 yearsUpper endoscopy showed reflux esophagiti s.We will repeat an updated CBC and iron studies panel Urinary incontinence 165 117098 R32 Patient reports today on review of systems that he has been having some urinary incontinen ce that is a new symptom. We will refer him for urinalysis with culture and also send him to a urologist for formal consultati on Cervical lymphadenopathy 594158324 R59.0 Generalize d cervical lymphadeno gray and [...] be sure to get a CT ordered. [id number] Brenton Hooker MD [facility] [address] [place] [address] 12/17/2024 15:53:51 12/24/2024 15:33:45 Body mass index 20-24 - normal 122625418 Z68.22 BMI is 23.2 Adult [facility] th examination 572255308 Z00.01 annual wellness completed Generalize d anxiety disorder 35957514 F41.1 Refill sertraline 100mg daily. patient reports feeling stable on this dosing. Benign ess ential hypertension 0225211 I10 Gastroesop hageal reflux disease without esophagitis 116631780 K21.9 change to pantoprazo le for cost savings Obstructiv e sleep apnea syndrome 90081164 G47.33 unable to tolerate cpap therapy. Long-term drug therapy 129391841 Z79.899 cmp, cbc and b12, folate labs are due Cholesterol screening 27 1888001 Z13.220 fasting lipids due Diabetes m ellitus screening 931395645 Z13.1 a1c screening due Thyroid di sorder screening 376358839 Z13.29 annual thyroid labs due Male hypogonadism 252629 06 E29.1 Health Concerns Section Related Observation LastModified by Organization Detai ls LastModified Time None Recorded Concern Status LastModified by Organization Details LastModified Time None Recorded Advance Directives Directive None Recorded Payers Encounter Date Sequence Insurance Name Policy Number Policy Melvin Covered Member ID Melvin Member ID Guarantor Name 12/26/2023 1 [place] [id number] 0 Wisam Jaylyn [id number] Wisam Jaylyn 02/20/2024 1 [place] [id number] 0 Iwsam Jaylyn [id number] Wisam Jaylyn 04/01/2024 1 [place] [id number] 0 Wisam Jaylyn [id number] Wisam Jaylyn 06/18/2024 1 [place] [id number] 0 Wisam Jaylyn [id number] Wisam Jaylyn Notes Date Note Type Note [...] when swallowing;heartburn KLEVER Boyle Attn: Accounting, [address] [place], [address], [facility] [place] 12/29/2023 09:24:52 024 text/ht ml Abdominal PainReported [...] in stool) KLEVER Boyle Attn: Accounting, [address] [place], [address], [facility] [place] 02/25/2024 23:23:12 024 text/ht ml Patient reports [...] next week KLEVER Boyle Attn: Accounting, [address] [place], [address], [facility] 04/06/2024 22:38:09 024 text/ht ml AnemiaReported bypatient.Severity:Macrocytic [...] in stool) KLEVER Boyle Attn: Accounting, [address] [place], [address], [facility] 06/29/2024 18:38:05
--- OUTSIDE RECORDS SUMMARY | 2024-12-24 17:09 | XMS_ITS | Data Portability ---
Author Organization [place] [facility], Main Office Address [address] [place] [address] Care Team Providers [facility] Nurse Name Role Phone SANTOS JONES Primary Care Provider SANTOS JONES Referring Provider Assessment Encounter Date Assessment Date Assessment LastModified by Organization Details LastModified Time 11/22/2022 11/22/2022 I have reconciled the patient's medications post their discharge from inpatient facility. [email or web address] Not available 11/22/2022 13:57:39 05/30/2023 05/30/2023 37-year-old [...] w/ auto diff 2022 023 [email or web address] 4 [facility], [address], [place], [address], 4 16:43:09 CMP, serum or plasma 2022 023 [email or web address] 4 [facility], [address], [place], [address], 4 16:43:09 Referral None recorded. Procedures None recorded. Surgeries None recorded. Imaging XR, knee, 3 view 2022 023 [email or web address] [facility], [address], [place], [address], 3 23:47:09 US, knee 2022 023 [facility], [address], [place], [address], 3 08:24:35 Medication Orders clindamycin HCl 300 mg capsule 2022 023 [email or web address] 4 [id number], [address], [place], [place], [id number], 3 14:42:34 Patient TargetsNo targets recorded. Patient InstructionsNo instructions recorded. Reason for Referral None Reported. Results Created Date Observation Date Name Description Value Unit Range Abnormal Flag Note LastModifiedBy Organization Detail LastModifiedTime 05/22/2005/10/2022 home sleep study No observ ation record ed. [id number] [facility] [address], [place], [address], 09/27/2022 22:08:00 05/31/20 22 05/31/2022 diagn ostic colon oscop y (PROC ) No observ ation record ed. MIGRATION.[id number] [facility] [address], [place], [address], 09/27/2022 22:08:00 05/09/20 23 05/08/2023 US, knee No observ ation record ed. [email or web address] [facility] [address], [place], [address], 05/22/2023 11:05:29 05/30/20 23 XR, knee, 3 view No observ ation record ed. [email or web address] [facility] [address], [place], [address], 05/30/2023 14:49:11 Result Notes None recorded. Problems Name Problem SNOMED Code Status Onset Date Resolution Date Notes Provider Name and Address Organization Details Recorded Time Apnea 7958538 Active 2021 Not Available [facility] 3 22:06:18 Laceration of left lower leg 8640179876279 9100 Active 2021 Not Available [facility] 3 22:06:18 Injury of left leg 0034934980984 9107 Active 2021 Not Available [facility] 3 22:06:18 Generalize d anxiety disorder 75059564 Active 2020 Not Available [facility] 3 22:06:18 Gastroesop hageal reflux disease 981523011 Active 2021 CARLA Ordonez null, [place] [facility] 3 11:48:39 Bleeding external hemorrhoid s 70837794 Active 2021 Not Available [facility] 3 22:06:19 Avulsion - injury 000485539 Active 2021 Not Available [facility] 3 22:06:19 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 79481693 Active 2020 Not Available [facility] 3 22:06:19 Occult blood detected in feces 24757650 Active 2021 Not Available [facility] 3 22:06:19 Alcohol dependence 68948620 Active 2021 Not Available [facility] 3 22:06:19 Obstructiv e sleep apnea syndrome 25033332 Active 2021 CARLA Ordonez, [facility] [employer] [facility] 3 11:48:41 Fatigue 16710365 Active 2021 Not Available [facility] 3 22:06:19 Acute gingivitis 90060668 Active 2022 KLEVER Boyle [address], [address], [place], [address] , [employer] [facility] [employer] [facility] 3 16:21:55 Submental lymphadeno gray 935524599 Active 2022 KLEVER Boyle [address], [address], [place], [address] , [employer] [facility] [employer] [facility] 3 16:22:00 Abscess of scrotum 92504420 Active 2022 KLEVER Boyle [address], [address], [place], [address] , [employer] [facility] [employer] [facility] 3 17:31:50 Synovial cyst of left knee 2595285867405 02 Active 2022 KLEVER Boyle [address], [address], [place], [address] , [facility] [employer] [facility] 3 15:16:41 Pain of left knee joint 8721098917544 07 Active 2022 CARLA Gonzalez null, [employer] [facility] 3 14:27:40 Acute sinusitis 29693212 Active 2022 KLEVER Boyle [address], [address], [place], [address] , [facility] [employer] [facility] [employer] [facility] 3 14:57:43 Problem Notes None recorded. Procedures Surgical History Date Name Laterality Status Provider Name and Address Organization Details Recorded Time 3 urology emergency hospital admission completed Liliane Babbman MIGUELITOIrving [facility] 11/20/2022 16:55:46 3 Vasectomy completed Liliane Crawford [facility] 11/20/2022 16:56:27 [place] Teeth completed Not Available [facility] 09/27/2022 22:05:28 tonsilectomy/a denoids completed Not Available [facility] 09/27/2022 22:05:28 radical excision of lymph nodes completed Not Available [facility] 09/27/2022 22:05:28 Imaging Results None recorded. Procedure Notes None recorded. Medical Equipment None Reported. Allergies Allergen ID Allergen Name Allergen Category Reaction Reaction Severity Criticality Documentation Date Start Date Code Code System Note Provider Name and Address Organization Details Recorded Time 61802 Product containin g penicilli n (product) medicatio n Not available Not available Not available 09/27/2022 94553 8001 SNOMED [facility] 14:21:44 Medications Name Sig Start Date Stop Date Status Note LastModified by Organization Details LastModified Time enclomiphen e cit 25mg #[id number] tablets 05/02 completed Not Available Not Available [...] propionate 50 mcg/actuati on nasal spray,suspe nsion [place] 2 sprays every day by intranasa l [...] Not Available Vitals Date Recorded Body height Body temperature Body mass index (BMI) Body weight Respiratory rate Oxygen saturation Oxygen saturation in Arterial blood by Pulse oximetry Heart rate Systolic blood pressure Diastolic blood pressure Provider Name and Address Organization Details Last Updated DateTime 3 190.5 cm 97.2 [degF] 22 kg/m2 61588.2 6 g 16 /min 97 % 97 % 83 /min 140 mm[Hg] 88 mm[Hg] CARLA Ordonez [facility] [employer] 3 16:06:14 Date Recorded Body height Body weight Body temperature Heart rate Oxygen saturation Oxygen saturation in Arterial blood by Pulse oximetry Systolic blood pressure Diastolic blood pressure Provider Name and Address Organization Details Last Updated DateTime 3 190.5 cm 65454.4 4 g 97.4 [degF] 78 /min 98 % 98 % 128 mm[Hg] 80 mm[Hg] Akiko Wiley RN [facility] 3 14:02:23 Date Recorded Body mass index (BMI) Provider Name and Address Organization Details Last Updated DateTime 05/02/2023 21.9 kg/m2 KLEVER Boyle [address] [place] [address], [facility] [address], [place], [address], [facility] [employer] 05/22/2023 22:14:29 Date Recorded Body height Body weight Body temperature Heart rate Oxygen saturation Oxygen saturation in Arterial blood by Pulse oximetry Systolic blood pressure Diastolic blood pressure Provider Name and Address Organization Details Last Updated DateTime 3 190.5 cm 06504.6 6 g 97.6 [degF] 79 /min 98 % 98 % 150 mm[Hg] 90 mm[Hg] Akiko Wiley RN [facility] [employer] [facility] 3 14:46:55 Date Recorded Body height Body mass index (BMI) Body weight Provider Name and Address Organization Details Last Updated DateTime 05/30/2023 190.5 cm 21.2 kg/m2 65785.7 g CARLA Gonzalez [facility] [employer] [facility] 05/30/2023 14:25:05 Date Recorded Body mass index (BMI) Body height Oxygen saturation Oxygen saturation in Arterial blood by Pulse oximetry Heart rate Body temperature Body weight Systolic blood pressure Diastolic blood pressure Systolic blood pressure Diastolic blood pressure Provider Name and Address Organization Details Last Updated DateTime 2 21.7 kg/m2 190.5 cm 97 % 97 % 85 /min 97.1 [degF] 32127.0 7 g 162 mm[Hg] 98 mm[Hg] 140 mm[Hg] 90 mm[Hg] Not Available [facility] 3 22:06:07 Social History Question Answer Notes LastModified by [employer] ion Details LastModified Time Tobacco Smoking Status Current Every Day Smoker Not Available [facility] 09/27/2022 22:05:24 What Is Your Level Of Caffeine Consumption? Occasional MIGRATION.177680 5972 Information not available 09/27/2022 How Much Tobacco Do You Chew? None MIGRATION.646398 5092 Information not available 09/27/2022 In The 14 Days Before Symptom Onset, Have You Had Close Contact With A Laboratory-confir med COVID-19 While That Case Was Ill? No MIGRATION.900778 1974 Information not available 09/27/2022 In The 14 Days Before Symptom Onset, Have You Had Close Contact With A Person Who Is Under Investigation For COVID-19 While That Person Was Ill? No MIGRATION.788831 8785 Information not available 09/27/2022 What Type Of Diet Are You Following? REGULAR MIGRATION.706088 1807 Information not available 09/27/2022 Which Illicit Or Recreational Drugs Have You Used? None MIGRATION.291701 3943 Information not available 09/27/2022 Have There Been Any Changes To Your Family Or Social Situation? No MIGRATION.000060 7846 Information not available 09/27/2022 Do You Use Insect Repellent Routinely? No MIGRATION.858965 4440 Information not available 09/27/2022 What Was The Date Of Your Most Recent Tobacco Screening? 05/30/2023 [email or web address] Information not available 05/30/2023 What Is Your Relationship Status? MIGRATION.229823 2519 Information not available 09/27/2022 Do You Use Your Seat Belt Or Car Seat Routinely? Yes MIGRATION.852649 8742 Information not available 09/27/2022 Do You Have Smoke And Carbon Monoxide Detectors In Your Home? Yes MIGRATION.565279 3378 Information not available 09/27/2022 How Much Tobacco Do You Smoke? 2 PPD MIGRATION.320886 1966 Information not available 09/27/2022 Do You Use Sunscreen Routinely? Yes MIGRATION.529619 8512 Information not available 09/27/2022 Have You Recently Traveled Abroad? No MIGRATION.016744 8538 Information not available 09/27/2022 Do You Have Any Dietary Restrictions? No MIGRATION.953896 6321 Information not available 09/27/2022 Sex: Unknown Functional Status Question Answer Note LastModified by Organizat ion Details LastModified Time Do you use any illicit or recreational drugs? No MIGRATION.007772 8706 Information not available 09/27/2022 Do you or have you ever used any other forms of tobacco or nicotine? No MIGRATION.635795 2524 Information not available 09/27/2022 What is your level of alcohol consumption? Occasional MIGRATION.801173 6385 Information not available 09/27/2022 Do you or have you ever used smokeless tobacco? Never used smokeless tobacco MIGRATION.064145 1192 Information not available 09/27/2022 Are you currently employed? 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 Never used electronic cigarettes MIGRATION.333309 1470 Information not available 09/27/2022 What is your exercise level? Moderate MIGRATION.085912 6603 Information not available 09/27/2022 Mental Status None recorded. Family History Relationship Description Onset Age of this Age Resolved Age Notes LastModified by Organization Details LastModified Time Father Hypertensive disorder MIGRATION.396 [id number] Not available 09/27/2022 22:05:30 Mother Hypertensive disorder MIGRATION.929 [id number] Not available 09/27/2022 22:05:30 Medical History Condition Response BLINDNESS N NERVE DISEASE N RHEUMATIC FEVER N BLADDER PROBLEMS N KIDNEY STONES N OTHER # 1 N POLIO N [...] ARTERY DISEASE (CAD) N ADDICTION CONCERNS N ENDOMETRIOSIS N Impotence N USE OF BLOOD THINNERS N SKIN [...] APNEA N CHICKENPOX N INFECTIOUS DISEASE N HEART ARRHYTHMIA N PROSTATE N INSOMNIA N HIGH CHOLESTEROL / HYPERLIPIDEMIA N HYPERTHYROIDISM N EYE PROBLEMS N NEUROLOGICAL PROBLEMS N EDEMA N CHRONIC PAIN SYNDROME N HYPOTHYROIDISM N CAROTID BLOCKAGE N CONSTIPATION N BACK / NECK PROBLEMS Y HAVE YOU BEEN HOSPITALIZED OR SEEN IN [facility] IN THE PAST YEAR ? N ATHEROSCLEROSIS N BREAST PROBLEMS N DIALYSIS N ECZEMA N OSTEOPOROSIS N ARTHRITIS N NO SIGNIFICANT PAST MEDICAL HISTORY N APPENDICITIS N DIABETES, TYPE N BAD TEETH N ENT N HEARTBURN / REFLUX N AUTISM SPECTRUM DISORDER (ASD) N HEPATITIS / LIVER DISEASE N PULMONARY DISEASE N GOUT N SLEEP DISORDER N ALZHEIMER'S DISEASE N Brain Problems N HERPES N DEMENTIA N HEADACHES/MIGRAINES N SEIZURES/EPILEPSY N VASCULAR DISEASE N PACEMAKER N Blood Disorder N DIZZINESS N HEART DISEASE/HEART PROBLEMS N KIDNEY DISEASE N MULTIPLE SCLEROSIS N CARDIAC ARRHYTHMIA N CANCER: SPECIFY N ANESTHESIA COMPLICATIONS N ATRIAL FIBRILLATION N Gall Stones N PULMONARY EMBOLISM N AUTOIMMUNE DISEASE N Past Encounters Encounter ID Performer Location Encounter Start Date Encounter Closed Date Diagnosis/Indication Diagnosis SNOMED-CT Code Diagnosis ICD10 Code Diagnosis Note [id number] KLEVER Boyle [facility] [address] [place] [address] 10/11/2020 00:00:00 10/27/2020 11:43:15 [id number] KLEVER Boyle [facility] [address] [place] [address] 07/05/2021 00:00:00 07/28/2021 12:44:34 [id number] Thomas Palma MD [facility] [address] [place] [address] 08/16/2021 00:00:00 08/16/2021 15:44:23 [id number] Brenton Hooker MD [facility] [address] [place] [address] 02/23/2022 00:00:00 02/23/2022 22:48:20 [id number] KLEVER Boyle [facility] [address] [place] [address] 04/28/2022 00:00:00 04/28/2022 15:58:03 [id number] KLEVER Boyle [facility] [address] [place] [address] 05/22/2022 00:00:00 05/27/2022 14:51:41 [id number] KLEVER Boyle [facility] [address] [place] [address] 06/09/2022 00:00:00 06/28/2022 19:24:40 [id number] KLEVER Boyle [facility] [address] [place] [address] 10/06/2022 15:57:54 10/06/2022 16:35:29 Acute gingivitis 00817611 K05.00 start clindamyci n 300mg qid. Submental lymphadenopathy 585354680 R59.0 related to above findings. [id number] KLEVER Boyle [facility] [address] [place] [address] 11/22/2022 13:56:14 11/22/2022 14:23:19 Long-term drug therapy 546814179 Z79.899 pt needs repeat CBC and CMP completed for post hospital stay. Abscess of scrotum 82862 006 N49.2 following post hospital with urology, saw them today . open I&D area being packed and healing well. f/u appts planned. [id number] KLEVER Boyle [facility] [address] [place] [address] 05/02/2023 14:42:14 05/02/2023 15:21:38 Generalized anxiety disorder 48047016 F41.1 stable on sertraline 100mg daily therapy. Synovial c yst of left knee 1326265211 35574 M71.22 refer for u/s popliteal fossa left knee. suspect taylor's cyst , larger size. [id number] Blair Prieto MD [facility] [address] [place] [address] 05/30/2023 14:16:18 05/30/2023 14:47:36 Pain of left knee joint 4527995112 10295 M25.562 Health Concerns Section Related Observation LastModified by Organization Detai ls LastModified Time None Recorded Concern Status LastModified by Organization Details LastModified Time None Recorded Advance Directives Directive None Recorded Payers Encounter Date Sequence Insurance Name Policy Number Policy Melvin Covered Member ID Melvin Member ID Guarantor Name 10/06/2022 1 [place] [id number] 0 Wisam Jaylyn [id number] Wisam Jaylyn 11/22/2022 1 [place] [id number] 0 Wisam Jaylyn [id number] Wisam Jaylyn 05/02/2023 1 [place] [id number] 0 Wisam Jaylyn [id number] Wisam Jaylyn 05/30/2023 1 [place] [id number] 0 Wisam De La O [id number] Wisam De La O Notes Date Note Type Note Provider Name and Address Organization Details Recorded Time 06/09/2022 text/html Generic HPI TemplateReported bypatient.Notes:Pt is here to f/u on the meds he started for alcohol dependence, has been taking clonidine only. Pt has not started antabuse. . Not Available [employer] 06/28/2022 19:24:40 10/06/2022 text/html Generic HPI TemplateReported bypatient.Location:[place] Quality:hard lump Severity:sore Duration:constant Onset/Timing:noticed it this morning Context:unknown Aggravating factors:touching it Associated Symptoms:gums tender as well and front toothache KLEVER Boyle [address], [place], [address], [employer] 10/27/2022 17:35:24 11/22/2022 text/html pt is here [...] today, pain is gone KLEVER Boyle [address], [place], [address], [employer] 11/22/2022 17:32:34 05/02/2023 text/html Knee SwellingRep orted [...] backside of left knee KLEVER Boyle [address] [facility] [facility] [address], [place], [address], [place] [facility] 05/22/2023 22:17:24
[2024-12-24 17:17] VITALS: BP 167/90; PULSE 114; RESP 16; TEMP 36.5; O2SAT 98
--- NOTE | 2024-12-24 17:19 | ED_ITS ---
HPI - Male Genitourinary General Chief complaint: Urogenital-Male <Beatriz Mcneal PA-C - Last Filed: 12/25/24 09:31> Stated complaint: Right testicle pain since yesterday-no urinary s/s <Beatriz cMneal PA-C - Last Filed: 12/25/24 09:31> Time Seen by Provider: 12/24/24 17:20 <Beatriz Mcneal PA-C - Last Filed: 12/25/24 09:31> Focused HPI: This is a 39 year old male that presents to the ER for right sided testicular pain. Ongoing since yesterday. Reports associated swelling. Denies fever, dysuria, hematuria. GENERAL: Well-appearing, well-nourished, and in no acute distress. HEAD: Normocephalic, atraumatic. CHEST: Clear to auscultation. ?No respiratory distress. HEART: Regular rate and rhythm.? NEURO: ?Alert and oriented x3. Patient screened in triage and initial orders placed.? ?Additional care and disposition to be based upon?diagnostic testing and treatment. <Beatriz Mcneal PA-C - Last Filed: 12/25/24 09:31> History of Present Illness HPI Narrative: Agree with the HPI above. Additional information is patient had a previous bilateral vasectomy done with Dr. Villalta his urologist several years ago complicated by infection requiring surgery. <Enrico Bliss MD - Last Filed: 12/24/24 20:57> Related Data Home medications: Home Medications ?Medication ?Instructions ?Recorded ?Confirmed ?Last Taken ?Type omeprazole 40 mg capsule,delayed 40 mg PO DAILY 05/10/22 04/11/24 04/10/24 History release sertraline 100 mg tablet 100 mg PO DAILY 05/22/22 04/11/24 04/10/24 History <Beatriz Mcneal PA-C - Last Filed: 12/25/24 09:31> Allergies/Adverse reactions: Allergies Allergy/AdvReac Type Severity Reaction Status Date / Time bee venom protein (honey Allergy Hives Verified 12/24/24 17:07 bee) (bees) <Beatriz Mcneal PA-C - Last Filed: 12/25/24 09:31> Review of Systems Review of Systems: As reviewed above in HPI <Enrico Bliss MD - Last Filed: 12/24/24 20:57> FOR[facility]LY [facility], [facility] Past Medical History Medical History: Medical History JOVANI (obstructive sleep apnea) Hypertension Word finding difficulty Urinary frequency Poison sylvia Mood changes Memory changes Hypogonadism male Glucosuria Gastroesophageal reflux disease without esophagitis Erythema of skin Dermatitis Allergy to bee sting Acute right-sided low back pain with right-sided sciatica Acute nonintractable headache Sinusitis Tobacco abuse Anxiety <Beatriz Mcneal PA-C - Last Filed: 12/25/24 09:31> Surgical History Surgical History: Surgical History Lymph nodes enlarged H/O wisdom tooth extraction History of tonsillectomy and adenoidectomy <Beatriz Mcneal PA-C - Last Filed: 12/25/24 09:31> Family History Family History: Family History Mother Hypertension Grandparent Hypertension <Beatriz Mcneal PA-C - Last Filed: 12/25/24 09:31> Social History Social History: Social History Smoking packs per day: 2 Smoking cigarettes per day: 40.0 Years smoked: 15 Smoking pack-years: 30.00 Smoking status: Current every day smoker Tobacco type: cigarettes Second hand tobacco smoke exposure: Yes Alcohol intake: current Drinks per week: 12 Substance use: current Substance use type: marijuana Lack of Transportation: No Lack of Food: Never True Current Housing: I Have Housing Concerned About Future Housing: No Difficulty Paying Gas/Electric Bills: No Difficulty Paying for Meds: No Currently Unemployed: No Education: High School Diploma/GED Difficulty w/ Childcare or Family Care: No Living arrangements: with family Additional living arrangements comments: has two dogs Occupation/Education: occupation Additional occupation/education comments: [employer] Gender identity (if verbalized by the patient): Male Spiritual care concerns: No Agree to blood products: No <Beatriz Mcneal PA-C - Last Filed: 12/25/24 09:31> Exam Narrative: GENERAL: [Well-appearing, well-nourished, and in no acute distress.] HEAD: [Normocephalic, atraumatic.] EYES: [PERRLA and EOMI.] ENT: Nares clear, no rhinorrhea or epistaxis. Mucous membranes moist. NECK: Supple. CHEST: [Clear to auscultation. No respiratory distress.] HEART: [Regular rate and rhythm]. No murmur heard. [Normal peripheral pulses.] ABDOMEN: [Soft, nondistended], [nontender], [No rigidity or guarding] EXTREMITIES: Normal range of motion. [No edema.] SKIN: Warm, dry, no rash. NEURO: [No focal deficits]. Alert and oriented [x3.] PSYCH: [Normal mood and affect.] <Enrico Bliss MD - Last Filed: 12/24/24 20:57> Course Vital Signs Vital signs: Vital Signs Temperature 97.7 F 12/24/24 17:17 Pulse Rate 114 H 12/24/24 17:17 Respiratory Rate 16 12/24/24 17:17 Blood Pressure 167/90 H 12/24/24 17:17 Pulse Oximetry 98 12/24/24 17:17 Temperature 98.1 F 12/24/24 20:36 Pulse Rate 100 12/24/24 20:36 Respiratory Rate 16 12/24/24 20:36 Blood Pressure 160/87 H 12/24/24 20:36 Pulse Oximetry 99 12/24/24 20:36 <Beatriz Mcneal PA-C - Last Filed: 12/25/24 09:31> Vital Signs Temperature 97.7 F 12/24/24 17:17 Pulse Rate 114 H 12/24/24 17:17 Respiratory Rate 16 12/24/24 17:17 Blood Pressure 167/90 H 12/24/24 17:17 Pulse Oximetry 98 12/24/24 17:17 Temperature 98.1 F 12/24/24 20:36 Pulse Rate 100 12/24/24 20:36 Respiratory Rate 16 12/24/24 20:36 Blood Pressure 160/87 H 12/24/24 20:36 Pulse Oximetry 99 12/24/24 20:36 <Enrico Bliss MD - Last Filed: 12/24/24 20:57> MDM - Male Genitourinary MDM Narrative Medical decision making narrative: 39-year-old male presenting with right-sided testicular pain since yesterday. Denies any urinary symptoms. Denies any chance of STDs and states that he is monogamous with his for 10 years. No recent urinary tract infection symptoms such as burning with urination but does endorse some intermittent stream issues. No history of prostate issues to his knowledge. He is not in any acute distress and overall well-appearing. He informs me that he has a previous vasectomy bilaterally and this was complicated by infection requiring surgery with his urologist Dr. Obando several years ago but he is not any symptoms of this. Ultrasound was ordered in triage to rule out testicular torsion or testicular emergencies otherwise. Urinalysis and urine STD panel testing ordered. Considerations presently are for epididymitis, hydrocele, varicocele, orchitis, testicular torsion. Patient is not any pain this time and otherwise appears comfortable on examination which is reassuring. Scrotal ultrasound reveals small right-sided hydrocele with some septations as well as right epididymitis otherwise normal testicular ultrasound with no signs of torsion. I discussed these findings with the patient and he states that he did have some scar tissue from his surgery but was made aware of the epididymitis and plan for treatment. Awaiting urinalysis and urine STDs for final disposition but patient will likely require a course of antibiotics and follow-up with his urologist which he verbalized understanding. Patient's gonorrhea chlamydia and Trichomonas screens were negative. His s ymptomatology is likely secondary to enteric organisms and will be treated with a course of Levaquin. He was given 500 mg p.o. and sent home with a prescription for 10 days. He will follow-up with his urologist. Patient given return precautions and safe for discharge home at this time. <Enrico Bliss MD - Last Filed: 12/24/24 20:57> Medical Records Attestation: I reviewed the patient's medical records. <Enrico Bliss MD - Last Filed: 12/24/24 20:57> Lab Data Attestation: I reviewed the patient's lab results. <Enrico Bliss MD - Last Filed: 12/24/24 20:57> Labs: Lab Results 12/24/24 Range/Units 18:51 Urine Color Yellow (Yellow) Urine Appearance Clear (Clear) Urine pH 6.5 (5.0-9.0) Ur Specific [place] 1.002 (1.001-1.035) Urine Protein Negative (Negative) mg/dL Urine Glucose (UA) Negative (Negative) mg/dL Urine Ketones Negative (Negative) mg/dL Ur Blood (Man) Negative (Negative) Urine Nitrate Negative (Negative) Urine Bilirubin Negative (Negative) Urine Urobilinogen 0.2 (<2.0) mg/dL Leukocyte Esterase Rfl Negative (Negative) ADOLPH/UL C. trachomatis (PCR) Not detected (NOT DETECTE) N. gonorrhoeae (PCR) Not detected (NOT DETECTE) T. vaginalis (PCR) Not detected (NOT DETECTE) <Beatriz Mcneal PA-C - Last Filed: 12/25/24 09:31> Lab Results 12/24/24 Range/Units 18:51 Urine Color Yellow (Yellow) Urine Appearance Clear (Clear) Urine pH 6.5 (5.0-9.0) Ur Specific [place] 1.002 (1.001-1.035) Urine Protein Negative (Negative) mg/dL Urine Glucose (UA) Negative (Negative) mg/dL Urine Ketones Negative (Negative) mg/dL Ur Blood (Man) Negative (Negative) Urine Nitrate Negative (Negative) Urine Bilirubin Negative (Negative) Urine Urobilinogen 0.2 (<2.0) mg/dL Leukocyte Esterase Rfl Negative (Negative) ADOLPH/UL C. trachomatis (PCR) Not detected (NOT DETECTE) N. gonorrhoeae (PCR) Not detected (NOT DETECTE) T. vaginalis (PCR) Not detected (NOT DETECTE) <Enrico Bliss MD - Last Filed: 12/24/24 20:57> Imaging Data Attestation: I personally reviewed and interpreted this imaging study as follows: <Enrico Bliss MD - Last Filed: 12/24/24 20:57> My impression: Impressions Scrotum Ultrasound 12/24/24 18:04 IMPRESSION: Small right hydrocele with septations which may indicate infection. Further evaluation advised. Abnormal echogenicity of the right epididymis is suggestive of epididymitis. Otherwise, normal testicular ultrasound. <Enrico Bliss MD - Last Filed: 12/24/24 20:57> Critical Care Time Critical Care Time Critical Care Time: No <Beatriz Mcneal PA-C - Last Filed: 12/25/24 09:31> Discharge Plan Discharge Clinical Impression: Epididymitis, right <Beatriz Mcneal PA-C - Last Filed: 12/25/24 09:31> Patient Disposition: Home <MARK Gonzalez Last Filed: 12/25/24 09:31> Condition: Stable <Beatriz Mcneal PA-C - Last Filed: 12/25/24 09:31> Instructions: Antibiotic Form, Epididymitis (ED) <Beatriz Mcneal PA-C - Last Filed: 12/25/24 09:31> Additional Instructions: Your ultrasound show epididymitis which is an inflammation and infection of the epididymal gland on top of the right testicle. We will treat this with a course of antibiotics for next 10 days. Your urine testing was all negative which was reassuring. Please call urologist Dr. Obando and follow-up with them in clinic. Return with any worsening or new concerns. <Beatriz Mcneal PA-C - Last Filed: 12/25/24 09:31> Patient Language: Iranian <Beatriz Mcneal PA-C - Last Filed: 12/25/24 09:31> Prescriptions: New levofloxacin 500 mg tablet 500 mg PO DAILY 10 Days Qty: 10 0RF No Action sertraline 100 mg tablet 100 mg PO DAILY omeprazole 40 mg capsule,delayed release(DR/EC) 40 mg PO DAILY amlodipine 2.5 mg tablet 2.5 mg PO DAILY Qty: 30 0RF albuterol sulfate 90 mcg/actuation HFA aerosol inhaler 1 inh inhalation QID PRN (Reason: shortness of breath or wheezing) Qty: 6.7 0RF famotidine 20 mg tablet 20 mg PO DAILY Qty: 30 0RF tamsulosin [Flomax] 0.4 mg capsule 0.4 mg PO DAILY Qty: 10 0RF hydrocodone-acetaminophen 5-325 mg tablet 1 tablet PO Q8H PRN (Reason: pain) Qty: 10 0RF ondansetron 4 mg tablet,disintegrating 4 mg PO Q8H PRN (Reason: nausea and vomiting) Qty: 10 0RF <Beatriz Mcneal PA-C - Last Filed: 12/25/24 09:31> Follow-up/Referrals: Prudencio Obando MD [Physician] - 1 Week (Right-sided epididymitis) Tigre,MARK Ruiz [Primary Care Provider] - <Beatriz Mcneal PA-C - Last Filed: 12/25/24 09:31> Time of Disposition: 20:56 <Beatriz Mcneal PA-C - Last Filed: 12/25/24 09:31> 20:56 <Enrico Bliss MD - Last Filed: 12/24/24 20:57>
--- OUTSIDE RECORDS SUMMARY | 2024-12-24 19:17 | XMS_ITS | Continuity of Care Document ---
Author Organization [facility] Address [address] [place] [address] Phone Care Team Providers Care Letter Of Credit Clerk Name Role Phone Conversion MD, Doctor Unavailable Unavailabl e Medications Medication Instructions Dosage Effective Dates (start - stop) Status Comments ZYRTEC 10MG TABS 1 QD - Active EPIPEN 0.3MG SYRINGES 1 DIRECTE - A ctive Advance Directives Directive Yes / No Effective Date File Name No Information Encounters Encounter Description Practice Location Reason(s) For Visit Diagnoses Date Provider Providers Copied on Encounter [facility], [address], [place], [place], [id number], [place] tel:[phone] Conversion Department No Information 1 Conversion Doctor. [facility] [place], [address], . Family History Family Member Type Diagnosis Age At Onset No Information Payers Payer name Insurance type Covered democrat ID Authoriza tion(s) No Information Social History [...]
--- OUTSIDE RECORDS SUMMARY | 2024-12-24 19:17 | XMS_ITS | Clinical Summary ---
Author Organization [facility] [employer] Address [address] [place] [address] Care Team Providers Care Expansion Joint Finisher Name Role Phone Sara Maldonado Primary Care Pr ovider Source Comments [facility] [employer],non-owned Affiliates and Associated Physician Practices is amultiple site organization consisting of ambulatory clinics and hospital sitesin [place], [place], [place] and [place]. This disclosure is being madepursuant to the Care Everywhere program and may not contain all information available regarding this patient. Last updated 18.[facility] [employer] Allergies No known active allergies Medications * Be aware that medications may not be up to date on this document. Alwaysverify current medications with the patient. 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 Gender Identity Not on file Sexual Orientation Not on file Last Filed Vital Signs Vital Sign Reading Time Taken Comments Blood Pressure 165/100 06/07/2023 3:12 PM SCHEDULE SUPERVISOR Pulse 82 06/07/2023 3:12 PM SCHEDULE SUPERVISOR Temperature - - Respiratory Rate - - Oxygen Saturation 94% 05/17/2023 9:00 AM CDT Inhaled Oxygen Concentration - - Weight 79.4 kg (175 lb) 06/07/2023 3:12 PM SCHEDULE SUPERVISOR Height 190.5 cm (6' 3) 06/07/2023 3:12 PM SCHEDULE SUPERVISOR Body Mass Index 21.87 06/07/2023 3:12 PM SCHEDULE SUPERVISOR Plan of Treatment Health Maintenance Due Date [...] patient's age to complete this topic Insurance [employer] MEDICAID LIMITED BEN[place] [facility] BCBS/BLUE BLUE CROSS BLUE SHIELD [place] SELF PAY NO INSURANCE Member Subscriber Plan / Payer (Ef fective for All Dates) Name:Sharon De La O Member ID:Not on file Relation to Subscriber:Not on file Name:SHARON DE LA O Subscriber ID:Not on file (Home) Address: [address] [place] [phone] Payer ID:Not on file Group ID:Not on file Type:Self Pay Address: [place], [place] Care Teams Expansion Joint Finisher Relationship Specialty Start Date End Date Sara Maldonado PA [address] [place] [address] PCP - General 06/13/22
[2024-12-24 19:55] LABS: Add Urine Microscopic? NO; Appearance Urine Clear (Clear); Bilirubin Urine Negative (Negative); Blood Urine Negative (Negative); Color Urine Yellow (Yellow); Glucose Urine UA Negative (Negative); Ketones Urine Negative (Negative); Leukocyte Esterase Ur Negative LEU/UL (Negative); Nitrate Urine Negative (Negative); Protein Urine Negative (Negative); Specific Grav Ur 1.002 (1.001-1.035); Urobilinogen Urine 0.2 mg/dL (<2.0); pH Urine 6.5 (5.0-9.0)
[2024-12-24 20:07] LABS: Trichomonas Vag PCR NOT DETECTED (NOT DETECTE)
[2024-12-24 20:32] LABS: Chlamydia trachomatis NOT DETECTED (NOT DETECTE); Neisseria gonorrhoeae PCR NOT DETECTED (NOT DETECTE)
[2024-12-24 20:36] VITALS: BP 160/87; PULSE 100; RESP 16; TEMP 36.7; O2SAT 99
[2024-12-24] MEDS: levoFLOXacin 500 MG TABLET PO (21:08)
== END 2024-12-24 21:08 | disposition home or self-care (01) ==
PROVIDERS: Physician Assistant; Emergency Provider Student in an Organized Health Care Education/Training Program; PCP Physician Assistant
DX: N45.1 Epididymitis (principal); I10 Essential (primary) hypertension; K21.9 Gastro-esophageal reflux disease without esophagitis; G47.33 Obstructive sleep apnea (adult) (pediatric); F41.9 Anxiety disorder, unspecified; F17.210 Nicotine dependence, cigarettes, uncomplicated; Z79.899 Other long term (current) drug therapy
CPT/HCPCS: 76870; 81003; 87491; 87591; 87661; 93976; 99284; A9270

== ENCOUNTER 2025-04-04 18:58 | Emergency (ER) | payer BC, SELFPAY ==
--- OUTSIDE RECORDS SUMMARY | 2010-08-05 19:00 | XMS_ITS | Continuity of Care Document ---
Author Organization [facility] Address [address] [place] [address] Phone Care Team Providers Care Beauty Culturist Name Role Phone Conversion MD, Doctor Unavailable Unavailabl e Medications Medication Instructions Dosage Effective Dates (start - stop) Status Comments ZYRTEC 10MG TABS 1 QD - Active EPIPEN 0.3MG SYRINGES 1 DIRECTE - A ctive Advance Directives Directive Yes / No Effective Date File Name No Information Encounters Encounter Description Practice Location Reason(s) For Visit Diagnoses Date Provider Providers Copied on Encounter [facility], [address], [place], [place], [id number], [place] tel:[phone] Conversion Department No Information 1 Conversion Doctor. [facility] [place], [address], . Family History Family Member Type Diagnosis Age At Onset No Information Payers Payer name Insurance type Covered green party ID Authoriza tion(s) No Information Social History Type Description Quantity Date Captured Comments Sex Male Smoking Status No Information Chief Complaint And Reason For Visit No Information Reason For Referral Reason For Referral No Information History Of Present Illness Encounter Date Complaint History Of Prese nt Illness No Information Functional Status Date Functional Assessmen t No Information Instructions Date Instruction Additional Infor mation No Information Assessments Type Assessment Date No Information Patient Care Teams Name Effective Dates (start - stop) Status Members No Information
--- OUTSIDE RECORDS SUMMARY | 2010-08-05 19:00 | XMS_ITS | Continuity of Care Document ---
Author Organization [facility] Address [address] [place] [address] Phone Care Team Providers Care Hazardous Material Specialist Name Role Phone Conversion MD, Doctor Unavailable Unavailabl e Medications Medication Instructions Dosage Effective Dates (start - stop) Status Comments ZYRTEC 10MG TABS 1 QD - Active EPIPEN 0.3MG SYRINGES 1 DIRECTE - A ctive Advance Directives Directive Yes / No Effective Date File Name No Information Encounters Encounter Description Practice Location Reason(s) For Visit Diagnoses Date Provider Providers Copied on Encounter [facility], [address], [place], [place], [id number], [place] tel:[phone] Conversion Department No Information 1 Conversion Doctor. [facility] [place], [address], . Family History Family Member Type Diagnosis Age At Onset No Information Payers Payer name Insurance type Covered constitution party ID Authoriza tion(s) No Information Social [...]
--- NOTE | ~2025-04-04 | XR_ITS ---
EXAMINATION: XR wrist LT min 3V DATE: 04/04/2025 19:18 INDICATION: Left wrist pain post fall TECHNIQUE: Posteroanterior, ulnar deviation, oblique, and lateral views of the right wrist were obtained. COMPARISON: none FINDINGS: Comminuted intra-articular fracture of the distal left radius. The main distal fragment is displaced 1 cm posteriorly along with posterior angulation resulting in 30 degrees dorsal tilt of the distal articular surface. There is a sagittally oriented fracture extending across the ulnar side of the distal radius with approximately 2 mm fracture gap extending to the articular cortex of the lunate fossa. No other fractures identified. Joint spaces are normal. IMPRESSION: 1. Displaced and angulated comminuted intra-articular fracture of the distal left radius. Reviewed, dictated and finalized at location A. IMPRESSION: 1. Displaced and angulated comminuted intra-articular fracture of the distal le ft radius.
--- NOTE | ~2025-04-04 | CT_ITS ---
EXAMINATION: CT facial bones wo con COMPARISON: None HISTORY: trauma TECHNIQUE: Axial images were obtained without IV contrast. Sagittal, coronal reconstruction images were obtained from the axial views. CT scan performed using dose optimization techniques including the following automated exposure control; adjustment of mA and/or kV; use of iterative reconstruction technique. Automatic exposure control was used to reduce radiation dose. Permanent radiation dose record is archived to PACS. FINDINGS: Nasal bones intact. Anterior maxillary sinus workman and zygomatic arches are intact. Temporomandibular joints intact. Orbital floors and medial and orbits are intact. Moderate maxillary and ethmoidal sinusitis. No parenchymal hemorrhage. No preseptal soft tissue swelling. The visualized brain parenchyma appears unremarkable. IMPRESSION: No acute fracture Reviewed, dictated and finalized at location A. IMPRESSION: No acute fracture
--- NOTE | ~2025-04-04 | XR_ITS ---
EXAMINATION: XR wrist RT min 3V DATE: 04/04/2025 19:18 INDICATION: Right wrist injury post fall TECHNIQUE: Posteroanterior, oblique and lateral views of the right wrist were obtained. COMPARISON: none FINDINGS: Linear lucency extending across the metaphyseal region of the distal right radius consistent with nondisplaced fracture. There is suggestion of an additional nondisplaced coronal oriented fracture plane extending across the dorsal aspect of the distal radius potentially involving the distal articular s urface. Alignment appears to remain near anatomic. No other fractures identified. Joint spaces are relatively preserved throughout. Soft tissue swelling about the dorsal aspect of the carpus. IMPRESSION: 1. Nondisplaced likely comminuted intra-articular fracture of the distal right radius. Reviewed, dictated and finalized at location A.
--- NOTE | ~2025-04-04 | XR_ITS ---
EXAMINATION: XR wrist LT min 3V, 04/04/2025 21:45 CDT HISTORY: post reduction COMPARISON: No comparisons available. Findings: There is an impacted fracture of the distal radius with intra-articular extension, mild displacement toward the dorsal aspect. No significant degenerative changes. Soft tissues unremarkable. Impression: Reduction detailed above Reviewed, dictated and finalized at location A. Impression: Reduction detailed above
--- OUTSIDE RECORDS SUMMARY | 2025-04-04 19:00 | XMS_ITS ---
Author Organization Unknown ENCOUNTERS Encounter Performer Location Date Diagnosis Diagnosis Status Pre Admit [facility] [address] [place] [address] [id number] Pre Admit [facility] [address] [place] [address] [id number] Emergency [facility] [address] [place] [address] [id number] [place] Out[facility] Sara Menossi [facility] [address] [place] [address] [id number] [place] Out[facility] Marlen Calico [facility] [address] [place] [address] [id number] [place] Out[place] Melchor [facility] [address] [place] [address] [id number] [place] Emergency [facility] [address] [place] [address] [id number] [place] Pre Admit [facility] [address] [place] [id number] [facility] [address] [place] [address] [id number] [place] Out[facility] Sara Menossi [facility] [address] [place] [address] [id number] [place] [facility] [address] [place] [address] [id number] [facility] [address] [place] [address] [id number] [place] Pre [address] [facility] [address] [place] [id number] [facility] [address] [place] [address] [id number] In[facility] [address] [place] [address] [id number] [place] Observation Rai Crum [facility] [address] [place] [id number] Sherman Mckeon [facility] [address] [place] [address] [id number] [place] Outpatient Melchor Abdi [facility] [address] [place] [address] [id number] [place] [facility] Karthikeyan Cat [facility] [address] [place] [address] [id number] [facility] [address] [place] [address] [id number] [place] Emergency Scott [address] [facility] [address] [place] [address] [id number] [place] [facility] [address] [place] [address] [id number] [place] Outpatient Natlie [address] [facility] [address] [place] [address] [id number] [place] Outpatient Natlie Margieossi [facility] [address] [place] [address] [id number] [place] *Note: Encounters from your own facility or health system may be excluded. Allergies, Adverse Reactions, Alerts Allergen Type Severity Identification Date bee venom protein (honey bee) drug allergy 3 [id number] Penicillins drug allergy 3 [id number] Medications Name Date Quantity Days Supplied [facility] Number
--- OUTSIDE RECORDS SUMMARY | 2025-04-04 19:00 | XMS_ITS | Clinical Summary ---
Author Organization [facility] Address [address] [place] [address] Care Team Providers Care Pulvi Mixer Operator Name Role Phone Unavailable Primary Care Provider [...] of 3 - 19+ 3-dose series) 2005 HPV Vaccines (1 - 3-dose SCD M series) 2013 COVID-19 Vaccine (2023-2 5 season) 2025 Meningococcal B Vaccine Aged Out No l onger eligible based on patient's age to complete this topic Meningococcal Vaccine Aged Out No angelica martinez eligible based on patient's age to complete this topic Pneumococcal Vaccine: Pediat rics (0 to 5 Years) and At-Risk Patients (6 to 49 Years) Aged Out No longer eligible b ased on patient's age to complete this topic RSV Immunizations Under 20 Months Aged Out No longer eligible based on patient's age to complete this topic
--- OUTSIDE RECORDS SUMMARY | 2025-04-04 19:00 | XMS_ITS | Clinical Summary ---
Author Organization [facility] [employer] Address [address] [place] [address] Care Team Providers Care Tax Compliance Officer Name Role Phone Sara Maldonado Primary Care Pr ovider Source Comments [facility] [employer],non-owned Affiliates and Associated Physician Practices is amultiple site organization consisting of ambulatory clinics and hospital sitesin [place], [place], [place] and [place]. This disclosure is being madepursuant to the Care Everywhere program and may not contain all information available regarding this patient. Last updated 18.[facility] [employer] Allergies No known active allergies Medications * Be aware that medications may not be up to date on this document. Alwaysverify current medications with the patient. 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 Gender Identity Not on file Sexual Orientation Not on file Last Filed Vital Signs Vital Sign Reading Time Taken Comments Blood Pressure 165/100 06/07/2023 3:12 PM ORE GRADER Pulse 82 06/07/2023 3:12 PM ORE GRADER Temperature - - Respiratory Rate - - Oxygen Saturation 94% 05/17/2023 9:00 AM CDT Inhaled Oxygen Concentration - - Weight 79.4 kg (175 lb) 06/07/2023 3:12 PM ORE GRADER Height 190.5 cm (6' 3) 06/07/2023 3:12 PM ORE GRADER Body Mass Index 21.87 06/07/2023 3:12 PM ORE GRADER Plan of Treatment Health Maintenance Due Date Last Done Comments HIV SCREENING 2001 HEPATITIS C SCREENING 11/16/2004 DTAP/TDAP/TD VACCINES (1 - Tdap) 2005 HEPATITIS B VACCINE (1 of 3 - 19+ 3-dose series) 2005 PNEUMOCOCCAL VACCINE (1 of 2 - PCV) 2005 HPV VACCINE (1 - 3-dose SCDM series) 2013 DEPRESSION SCREENING 07/30/2024 COVID-19 VACCINE (1 - 2023-2 5 season) 2025 INFLUENZA VACCINE (#1) 2025 ZOSTER VACCINE (1 of 2) 2036 HIB VACCINE Aged Out No longer eligi ble based on patient's age to complete this topic MENINGOCOCCAL (Group B) VACC INE SHARED DECISION-MAKING Aged Out No longer eligibl e based on patient's age to complete this topic MENINGOCOCCAL GROUPS A/C/Y/W VACCINE Aged Out No longer eligible b ased on patient's age to complete this topic Insurance [employer] MEDICAID LIMITED [place]ENEF[place] - [place] [facility] BCBS/BLUE BLUE CROSS BLUE SHIELD [place] SELF PAY NO INSURANCE Member Subscriber Plan / Payer (Ef fective for All Dates) Name:Sharon Pandya Member ID:Not on file Relation to Subscriber:Not on file Name:SHARON PANDYA Subscriber ID:Not on file (Home) Address: [address] [place] [phone] Payer ID:Not on file Group ID:Not on file Type:Self Pay Address: [place], [place] Care Teams Tax Compliance Officer Relationship Specialty Start Date End Date Sara Maldonado PA [address] [place] [id number] PCP - General 06/13/22
--- OUTSIDE RECORDS SUMMARY | 2025-04-04 19:00 | XMS_ITS | Encounter Summary ---
Author Organization [facility] Address [facility] [place] [address] Care Team Providers Care Master Ocean Yacht Name Role Phone Unavailable Primary Care Provider Unavailabl e Encounter Details Date Type Department Care Team (Late st Contact Info) Description 07/18/2019 Therapy Plan [facility] [place] [address] Ivory Major, [place] [address] Social History Tobacco Use Types Packs/Day Years [...]
[2025-04-04 19:04] VITALS: BP 158/83; PULSE 91; RESP 20; TEMP 37; O2SAT 100
--- OUTSIDE RECORDS SUMMARY | 2025-04-04 19:37 | XMS_ITS | Clinical Summary ---
Author Organization [facility] Address [address] [place] [address] Care Team Providers Care X Ray Examiner Of Aircraft Name Role Phone Sara Maldonado Primary Care Pr ovider Source Comments [facility],non-owned Affiliates and Associated Physician Practices is amultiple site organization consisting of ambulatory clinics and hospital sitesin [place], [place], [place] and [place]. This disclosure is being madepursuant to the Care Everywhere program and may not contain all information available regarding this patient. Last updated 18.[facility] Allergies No known active allergies Medications * Be aware that medications may not be up to date on this document. Alwaysverify current medications with the patient. 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 Gender Identity Not on file Sexual Orientation Not on file Last Filed Vital Signs Vital Sign Reading Time Taken Comments Blood Pressure 165/100 06/07/2023 3:12 PM LABORATORY SECRETARY Pulse 82 06/07/2023 3:12 PM LABORATORY SECRETARY Temperature - - Respiratory Rate - - Oxygen Saturation 94% 05/17/2023 9:00 AM CDT Inhaled Oxygen Concentration - - Weight 79.4 kg (175 lb) 06/07/2023 3:12 PM LABORATORY SECRETARY Height 190.5 cm (6' 3) 06/07/2023 3:12 PM LABORATORY SECRETARY Body Mass Index 21.87 06/07/2023 3:12 PM LABORATORY SECRETARY Plan of Treatment Health Maintenance Due Date [...] patient's age to complete this topic Insurance [employer] MEDICAID LIMITED BENEFIT - [place] [facility] BCBS/BLUE BLUE CROSS BLUE SHIELD [place] SELF PAY NO INSURANCE Member Subscriber Plan / Payer (Ef fective for All Dates) Name:Sharon Pandya Member ID:Not on file Relation to Subscriber:Not on file Name:SHARON PANDYA Subscriber ID:Not on file (Home) Address: [address] [place] [id number] Payer ID:Not on file Group ID:Not on file Type:Self Pay Address: [place], [place] Care Teams X Ray Examiner Of Aircraft Relationship Specialty Start Date End Date Sara Maldonado PA [address] [place] [id number] PCP - General 06/13/22
--- NOTE | 2025-04-04 19:44 | ED_ITS ---
HPI - General Adult General Chief complaint: Wound/Laceration Stated complaint: wound Time Seen by Provider: 04/04/25 19:15 History of Present Illness HPI narrative: Patient is a 39-year-old male who presents emergency department this evening status post a fall off of 14 ft ladder. Patient states that he was standing at approximately 12 ft off the ground. Fell onto grass. Caught himself with both outstretched hands. Patient does have an obvious deformity noted to the left wrist and is also complaining of pain to the right wrist. Denies hitting his head, denies any loss of consciousness. Denying any additional symptoms or concerns at this time. Related Data Home Medications ?Medication ?Instructions ?Recorded ?Confirmed ?Last Taken ?Type omeprazole 40 mg capsule,delayed 40 mg PO DAILY 04/11/24 04/10/24 History release sertraline 100 mg tablet 100 mg PO DAILY 05/22/2204/10/24 History Allergies Allergy/AdvReac Type Severity Reaction Status Date / Time bee venom protein (honey Allergy Hives Verified 04/04/25 19:03 bee) (bees) Review of Systems 2 Review of Systems: All systems are reviewed and are negative unless stated otherwise in the HPI. [facility] Past Medical History Medical History JOVANI (obstructive sleep apnea) Hypertension Word finding difficulty Urinary frequency Poison sylvia Mood changes Memory changes Hypogonadism male Glucosuria Gastroesophageal reflux disease without esophagitis Erythema of skin Dermatitis Allergy to bee sting Acute right-sided low back pain with right-sided sciatica Acute nonintractable headache Sinusitis Tobacco abuse Anxiety Surgical History Surgical History Lymph nodes enlarged 1989' H/O wisdom tooth extraction 1989' History of tonsillectomy and adenoidectomy Family History Family History Mother Hypertension Grandparent Hypertension Social History Social History Smoking packs per day: 2 Smoking cigarettes per day: 40.0 Years smoked: 15 Smoking pack-years: 30.00 Smoking status: Current every day smoker Tobacco type: cigarettes Second hand tobacco smoke exposure: Yes Alcohol intake: current Drinks per week: 12 Substance use: current Substance use type: marijuana Lack of Transportation: No Lack of Food: Never True Current Housing: I Have Housing Concerned About Future Housing: No Difficulty Paying Gas/Electric Bills: No Difficulty Paying for Meds: No Currently Unemployed: No Education: High School Diploma/GED Difficulty w/ Childcare or Family Care: No Living arrangements: with family Additional living arrangements comments: has two dogs Occupation/Education: occupation Additional occupation/education comments: [employer] Gender identity (if verbalized by the patient): Male Spiritual care concerns: No Agree to blood products: No Exam 2 Narrative: General: Alert, awake, afebrile, in no acute distress. HEENT: PERRL, no rhinorrhea, no post nasal drip, oropharynx clear. Neck: Trachea midline, no JVD, no lymphadenopathy. Cardiovascular: Regular rate and rhythm, no murmurs, rubs or gallops, no peripheral edema. Respiratory: Clear to auscultation bilaterally, no tachypnea, no wheezing, no rhonchi, no rubs, no respiratory distress. Abdomen: Soft, nontender, nondistended, no rebound, no guarding, no peritoneal signs. Musculoskeletal: Obvious deformity noted to the left wrist with significant swelling and ecchymosis, tenderness palpation over the medial aspect of the right wrist no deformity noted to the right wrist, intact radial known all process of the right wrist, and able to palpate the left radial and ulnar pulses secondary to edema. Skin: No rashes or petechia, no signs of infection. Psychiatric: Alert and oriented, normal behavior and judgment for situation. Neurological: Alert and oriented to person, place, and time. Follows all commands. No focal deficits, speech is clear and fluent. Course Vital Signs Vital signs: Vital Signs Temperature 98.6 F 04/04/25 19:04 Pulse Rate 91 04/04/25 19:04 Respiratory Rate 20 04/04/25 19:04 Blood Pressure 158/83 H 04/04/25 19:04 Pulse Oximetry 100 04/04/25 19:04 Oxygen Delivery Room Air 04/04/25 19:04 Temperature 98.6 F 04/04/25 19:04 Pulse Rate 91 04/04/25 19:04 Respiratory Rate 20 04/04/25 19:04 Blood Pressure 158/83 H 04/04/25 19:04 Pulse Oximetry 100 04/04/25 19:04 Oxygen Delivery Room Air 04/04/25 19:04 Procedures Orthopedic Fracture Reduction Fracture #1: Fracture Reduction date: 04/04/25 Fracture Reduction time: 22:00 Time Out Performed: Yes Side: left Fracture Reduction Location: radius Analgesia: hematoma block Pre-Procedure Neuro Vascular Exam: normal Technique: direct manipulation and traction/counter-traction Post Reduction X-rays Demonstrate: other (Slight improvement although full reduction was not achieved) Post-reduction neuro exam: intact Post-reduction vascular exam: intact Splint Applied: Yes Patient Tolerated Procedure: well and no complications Medical Decision Making MDM Narrative Medical decision making narrative: The patient was evaluated by myself in the emergency department. History is obtained from patient who is an independent historian and physical exam was performed. External medical records were reviewed at this time. IV was established and pertinent tests were ordered. Patient was administered 50 mcg of IV fentanyl and 4 mg IV Zofran. Laboratory results obtained revealing transaminitis with an AST of 201 and ALT of 135, which are around his baseline per chart review. Imaging studies obtained included bilateral wrist x-rays and CT facial bones without IV contrast it is which was independently interpreted by me revealing: IMPRESSION: 1. Nondisplaced likely comminuted intra-articular fracture of the distal right radius. 2. Displaced and angulated comminuted intra-articular fracture of the distal left radius. 3. No acute osseous findings to the facial bones. Left wrist fracture reduction was attempted, did not achieve full reduction although on repeat left wrist x-rays does show some slight improvement. Patient was placed in bilateral sugar-tong wrist splints. Case was discussed with the on-call orthopedic surgeon Dr. Cat at 1999 who informed me that patient will likely not be able to go to surgery until Sunday and given the degree of the left was fracture did recommend transfer to a trauma center. [facility] transfer line was contacted at 2004 and case was discussed with the on-call ED physician Dr. Cruz at 2014 who accepted transfer, however, did inform it at this time they have wait list for trauma transfers and will contact as soon as they can take the patient. At this time, the [facility] transfer line was contacted and case was discussed with the on-call ED physician Dr. Colón at [facility] at 2320 who accepted transfer. Differential diagnosis considerations include fractures, dislocations. Comorbidities impacting this visit include none. I have evaluated and discussed social determinants of health with the patient that could potentially impact subsequent diagnosis and treatment plans. On repeat assessment of the patient, reevaluation revealed that the patient is doing well and is in no acute distress. Patient symptoms have improved since he arrived to our emergency department. Repeat vital signs were all reviewed and noted to be stable. Differential diagnosis and treatment plan were discussed with the patient at bedside. Patient agrees with discussion and after shared medical decision making agrees with transfer. All questions were answered to the patient's satisfaction. Vital Signs Vital Signs: Vital Signs Temperature 98.6 F 04/04/25 19:04 Pulse Rate 91 04/04/25 19:04 Respiratory Rate 20 04/04/25 19:04 Blood Pressure 158/83 H 04/04/25 19:04 Pulse Oximetry 100 04/04/25 19:04 Oxygen Delivery Room Air 04/04/25 19:04 Temperature 98.6 F 04/04/25 19:04 Pulse Rate 91 04/04/25 19:04 Respiratory Rate 20 04/04/25 19:04 Blood Pressure 158/83 H 04/04/25 19:04 Pulse Oximetry 100 04/04/25 19:04 Oxygen Delivery Room Air 04/04/25 19:04 Lab Data 04/04/25 20:33 04/04/25 20:33 Labs: Lab Results 04/04/25 Range/Units 20:33 WBC 10.4 H (4.5-10.0) K/mm3 RBC 4.19 L (4.6-6.20) M/mm3 Hgb 13.6 L (14.0-18.0) g/dL Hct 40.2 L (42.0-52.0) % MCV 95.9 (80-100) fl MCH 32.5 (26-34) pg MCHC 33.8 (32-36) g/dl RDW 14.7 H (11.5-14.5) % Plt Count 255 (150-375) k/mm3 MPV 10.2 (7.4-10.4) fl Immature Gran % (Auto) 0.5 (0-0.5) % Neut % (Auto) 73.6 H (45.5-73.1) % Lymph % (Auto) 14.5 L (18.3-44.2) % [place] % (Auto) 8.3 (2.6-8.5) % Eos % (Auto) 1.8 (0-4.4) % Baso % (Auto) 1.3 H (0.2-1.2) % Lymph # (Auto) 1.51 (0.9-3.2) K/mm3 [place] # (Auto) 0.9 H (0.1-0.6) K/mm3 Eos # (Auto) 0.2 (0-0.3) K/mm3 Baso # (Auto) 0.1 (0.0-0.1) K/mm3 Abs Immat Gran (auto) 0.05 H (0.00-0.031) K/mm3 Absolute Neuts (auto) 7.7 H (1.3-6.7) K/mm3 Absolute Nucleated RBC 0.000 (0.0-0.012) K/mm3 Nucleated RBC % 0.0 (0.0-0.2) % Sodium 135 L (137-145) mmol/L Potassium 3.6 (3.4-5.0) mmol/L Chloride 101 (98-107) mmol/L Carbon Dioxide 24 (22-30) mmol/L Anion Gap 10 (4-12) mmol/L BUN 5 L (9-20) mg/dL Creatinine 0.75 (0.7-1.3) mg/dL Estim Creat Clear Calc 135 ml/min Estimated GFR > 60 (59 - ) Glucose 110 (65-110) mg/dL Calcium 9.0 (8.4-10.2) mg/dL Total Bilirubin 0.3 (0.2-1.3) mg/dL AST 201 H (17-59) U/L ALT 135 H (6-50) U/L Alkaline Phosphatase 143 H (38-126) U/L Total Protein 7.1 (6.3-8.2) g/dL Albumin 4.1 (3.5-5.1) g/dL Blood Type B Positive Antibody Screen Negative Discharge Plan Discharge Clinical Impression: Fall from ladder, Closed fracture of both wrists, Facial trauma Patient Disposition: Acute Care Hospital Condition: Stable Patient Language: Barbadian Prescriptions: No Action sertraline 100 mg tablet 100 mg PO DAILY omeprazole 40 mg capsule,delayed release(DR/EC) 40 mg PO DAILY amlodipine 2.5 mg tablet 2.5 mg PO DAILY Qty: 30 0RF albuterol sulfate 90 mcg/actuation HFA aerosol inhaler 1 inh inhalation QID PRN (Reason: shortness of breath or wheezing) Qty: 6.7 0RF famotidine 20 mg tablet 20 mg PO DAILY Qty: 30 0RF tamsulosin [Flomax] 0.4 mg capsule 0.4 mg PO DAILY Qty: 10 0RF hydrocodone-acetaminophen 5-325 mg tablet 1 tablet PO Q8H PRN (Reason: pain) Qty: 10 0RF ondansetron 4 mg tablet,disintegrating 4 mg PO Q8H PRN (Reason: nausea and vomiting) Qty: 10 0RF levofloxacin 500 mg tablet 500 mg PO DAILY 10 Days Qty: 10 0RF Follow-up/Referrals: Tigre,MARK Ruiz [Primary Care Provider, Unknown] Time of Disposition: 21:26
[2025-04-04] MEDS: ONDANSETRON INJ 4 MG/2 ML VIAL IV PUSH (20:06)
[2025-04-04] MEDS: fentaNYL CITRATE INJ (*CRX) 100 MCG/2 ML VIAL 50 MCG IV PUSH ×2 (20:06→21:09)
[2025-04-04 20:38] LABS: Hematocrit 40.2 % (42.0-52.0); Hemoglobin 13.6 g/dL (14.0-18.0); Immature Granulocyte Percent A 0.5 % (0-0.5); Lymphocytes Absolute Auto 1.51 K/mm3 (0.9-3.2); Mean Corpuscular HGB Conc 33.8 g/dl (32-36); Mean Corpuscular Hemoglobin 32.5 pg (26-34); Mean Corpuscular Volume 95.9 fl (80-100); Nucleated Red Blood Cells Absolute Auto 0.000 K/mm3 (0.0-0.012); Nucleated Red Blood Cells Perc 0.0 % (0.0-0.2); Platelet Count Result 255 k/mm3 (150-375); Red Blood Count 4.19 M/mm3 (4.6-6.20); White Blood Count 10.4 K/mm3 (4.5-10.0)
[2025-04-04 20:47] LABS: Alanine Aminotransferase 135 U/L (6-50); Albumin Level 4.1 g/dL (3.5-5.1); Alkaline Phosphatase 143 U/L (38-126); Anion Gap 10 mmol/L (4-12); Aspartate Amino Transferase 201 U/L (17-59); Bilirubin,Total 0.3 mg/dL (0.2-1.3); Blood Urea Nitrogen 5 mg/dL (9-20); Calcium 9.0 mg/dL (8.4-10.2); Carbon Dioxide 24 mmol/L (22-30); Chloride 101 mmol/L (98-107); Estimated CRCL calculation 135 ml/min; Estimated Glomerular Filt Rate > 60; Glucose 110 mg/dL (65-110); Potassium 3.6 mmol/L (3.4-5.0); Sodium 135 mmol/L (137-145); Total Protein 7.1 g/dL (6.3-8.2)
[2025-04-05 00:05] VITALS: BP 156/97; PULSE 87; RESP 18; O2SAT 96
[2025-04-05 00:22] VITALS: BP 156/97; PULSE 87; RESP 18; O2SAT 96
== END 2025-04-05 00:20 | disposition short-term general hospital (02) ==
PROVIDERS: Emergency Provider Emergency Medicine; PCP Physician Assistant
DX: S52.572A Other intraarticular fracture of lower end of left radius, initial encounter for closed fracture (principal); S52.571A Other intraarticular fracture of lower end of right radius, initial encounter for closed fracture; S09.93XA Unspecified injury of face, initial encounter; I10 Essential (primary) hypertension; K21.9 Gastro-esophageal reflux disease without esophagitis; G47.33 Obstructive sleep apnea (adult) (pediatric); F41.9 Anxiety disorder, unspecified; F17.210 Nicotine dependence, cigarettes, uncomplicated; Z79.899 Other long term (current) drug therapy; W11.XXXA Fall on and from ladder, initial encounter
CPT/HCPCS: 25605; 29125; 36415; 70486; 73110; 80053; 85025; 86850; 86900; 86901; 96374; 96375; 96376; 99285; J2405; J3010; L0140